=== PATIENT | male | born 1955 ===

== ENCOUNTER 2016-05-28 09:33 | Inpatient (IN) | payer MEDICAID, OTHER ==
[2016-05-28 09:36] VITALS: BMI 20.4
--- NOTE | 2016-05-28 11:14 | C.PDOC ---
History Of Present Illness Patient was seen in the office on 05/[address] Orourke. He was diagnosed with a "rectal prolapse" at that time and was advised to come to the ED today for admission. He c/o pain in the rectum and has swelling there for years but has no difficulty passing his stool. He has no abdominal pain, nausea, vomiting or diarrhea or constipation. He has no urinary symptoms. Time Seen by Provider: 05/28/16 09:46 Chief Complaint (Nursing): Medical Clearance History Per: Patient History/Exam Limitations: no limitations Current Symptoms Are (Timing): Still Present Past Medical History Vital Signs: Last Vital Signs Temp 97.6 F 05/28/16 09:41 Pulse 96 H 05/28/16 09:41 Resp 17 05/28/16 09:41 BP 162/99 H 05/28/16 09:41 Pulse Ox 97 05/28/16 09:41 - Medical History PMH: HTN Surgical History: No Surg Hx Family History: States: Unknown Family Hx - Social History Hx Tobacco Use: No Hx Alcohol Use: No Hx Substance Use: No - Immunization History Hx Tetanus Toxoid Vaccination: No Hx Influenza Vaccination: No Hx Pneumococcal Vaccination: No Review Of Systems Except As Marked, All Systems Reviewed And Found Negative. Gastrointestinal: Positive for: Rectal Pain (and swelling) Physical Exam - Physical Exam Appears: Well, No Acute Distress Skin: Normal Color, Warm, Dry, Other (Multiple fibromas generalized) Head: Atraumatic, Normacephalic Eye(s): bilateral: Normal Inspection, PERRL, EOMI Oral Mucosa: Moist Chest: Symmetrical Cardiovascular: Rhythm Regular Respiratory: Normal Breath Sounds Gastrointestinal/Abdominal: Normal Exam, Bowel Sounds, Soft, Tenderness Rectal: Hemorrhoids (right sided, thrombosed), Mass (nodular along left wall just proximal to the sphincter) Male Genital: Normal Inspection Extremity: Normal ROM Neurological/Psych: Oriented x3, Normal Speech, Normal Cognition ED Course And Treatment O2 Sat by Pulse Oximetry: 97 Disposition - Disposition Disposition: HOSPITALIZED Disposition Time: 11:11 Condition: STABLE - POA Present On Arrival: None - Clinical Impression Clinical Impression: Thrombosed external hemorrhoid, Mass in rectum
[2016-05-28] MEDS: Dextrose 5%/0.45% NS 1,000 ML IV SCH ×2 (12:32→23:00)
--- NOTE | 2016-05-28 13:52 | CP.PCM.CON ---
Addendum entered and electronically signed by Zachary Gonzalez DO 05/28/16 18:49: Pt has Detsky score of 0, which carries a 0.4% risk of adverse cardiac event. ABG WNL. Medically optimized for surgery. Original Note: <Zachary Gonzalez - Last Filed: 05/28/16 14:53> History of Present Illness - History of Present Illness History of Present Illness: Medicine consult note on Dr. Mcknight service: 60M PMHx HTN, asthma, scoliosis and chronic rectal pain was sent to ED by Dr. Larson for rectal prolapse. Pt was seen by Dr. Larson on 05/23 and was instructed to come to ED today for admission. Pt complains rectal pain when having BM and when it was touched, but he had it for a long time. 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 Pt otherwise have no other complaints, denied chest pain, SOB, palpitations, lightheadedness, abdominal pain, n/v, fever, chills, hearing or vision changes. Pt said he only takes one pill for HTN at home and uses pump occasionally for his asthma. PMHx: above PSHx: denied FMHx: reviewed and noncontributory Social: denied ETOH or drugs, former smoker with 20 pack year hx and quitted 8 years ago. Lives with daughter, no trouble ambulating NKDA Review of Systems - Constitutional Constitutional: absent: Anorexia, Weakness - EENT Eyes: absent: Diplopia - Cardiovascular Cardiovascular: absent: Chest Pain, Dyspnea - Respiratory Respiratory: absent: Cough, Dyspnea - Gastrointestinal Gastrointestinal: absent: Abdominal Pain, Constipation, Diarrhea, Nausea, Vomiting Additional comments: rectal pain when passing BM - Genitourinary Genitourinary: absent: Dysuria, Pyuria - Musculoskeletal Musculoskeletal: absent: Tingling - Integumentary Integumentary: Change in Pigmentation, Lesions - Neurological Neurological: absent: Focal Weakness, Loss of Vision Past Patient History - Past Social History Smoking Status: Never Smoked - CARDIAC Hx Hypertension: Yes - MUSCULOSKELETAL/RHEUMATOLOGICAL Hx Falls: No - PSYCHIATRIC Hx Substance Use: No - ANESTHESIA Hx Anesthesia: No Hx Anesthesia Reactions: No Meds Allergies/Adverse Reactions: Allergies Allergy/AdvReac Type Severity Reaction Status Date / Time No Known Allergies Allergy Verified 05/28/16 09:49 - Medications Medications: Current Medications Dextrose/Sodium Chloride (Dextrose 5%/0.45% Ns 1000 Ml) 1,000 mls @ 100 mls/hr IV .Q10H [facility] Last Admin: 05/28/16 12:32 Dose: 100 mls/hr Physical Exam - Constitutional Appears: Non-toxic, No Acute Distress, Chronically Ill - Head Exam Head Exam: NORMOCEPHALIC - Respiratory Exam Respiratory Exam: Clear to Auscultation Bilateral, NORMAL BREATHING PATTERN. absent: Rhonchi, Wheezes - Cardiovascular Exam Cardiovascular Exam: REGULAR RHYTHM, +S1, +S2. absent: Gallop, Rubs - GI/Abdominal Exam GI & Abdominal Exam: Normal Bowel Sounds, Soft. absent: Hernia, Tenderness - Rectal Exam Rectal Exam: Hemorrhoids Additional comments: 4cm red mass protruding from rectum tender to palpation, sphincter tone present , tender nodules palpated inside rectal on the left rectal wall near anus - Back Exam Back exam: rash noted. absent: CVA tenderness (R), tenderness Additional comments: severe levoscoliosis - Neurological Exam Neurological exam: Alert, Oriented x3 - Psychiatric Exam Psychiatric exam: Normal Mood - Skin Skin Exam: Rash (multiple cafe au leit macules, largest on left anterior chest 10cm long) Results - Vital Signs Recent Vital Signs: Last Vital Signs Temp 97.8 F 05/28/16 12:23 Pulse 86 05/28/16 12:23 Resp 20 05/28/16 12:23 BP 154/90 H 05/28/16 12:23 Pulse Ox 97 05/28/16 12:23 Assessment & Plan - Assessment and Plan (Free Text) Assessment: Rectal mass/prolapse Possible OR tomorrow per ED attending. Management as per primary surgical team. Flagyl and Neomycin PO as per Dr. Larson. F/U preop labs and imaging. HTN Continue home med Ramipril 5mg PO daily. Monitor and adjust if needed. Asthma Duoneb q2H PRN. Levoscoliosis Pulm Dr. Velazquez consulted. F/U ABG. <Eb Mcknight - Last Filed: 05/28/16 19:38> Meds - Medications Medications: Current Medications Albuterol/Ipratropium (Duoneb 3 Mg/0.5 Mg (3 Ml) Ud) 3 ml INH Q8H [facility] Dextrose/Sodium Chloride (Dextrose 5%/0.45% Ns 1000 Ml) 1,000 mls @ 100 mls/hr IV .Q10H [facility] Last Admin: 05/28/16 12:32 Dose: 100 mls/hr Metronidazole (Flagyl) 500 mg PO TID [facility] Stop: 05/29/16 00:00 Last Admin: 05/28/16 18:18 Dose: 500 mg Neomycin Sulfate (Neomycin Tab) 1,000 mg PO TID [facility] Stop: 05/29/16 00:00 Results - Vital Signs Recent Vital Signs: Last Vital Signs Temp 97.8 F 05/28/16 15:40 Pulse 85 05/28/16 15:40 Resp 20 05/28/16 15:40 BP 121/81 05/28/16 15:40 Pulse Ox 97 05/28/16 15:40 - Labs Result Diagrams: 05/28/16 17:26 05/28/16 17:26 Labs: Laboratory Results - last 24 hr 05/28/16 05/28/16 15:55 17:26 WBC 7.7 RBC 4.90 Hgb 14.9 Hct 43.2 MCV 88.2 D MCH 30.3 MCHC 34.4 RDW 13.1 Plt Count 275 MPV 6.4 L Neut % (Auto) 78.5 H Lymph % (Auto) 15.7 L Borden % (Auto) 5.2 Eos % (Auto) 0.1 Baso % (Auto) 0.5 Neut # 6.1 Lymph # 1.2 Borden # 0.4 Eos # 0.0 Baso # 0.0 PT 12.5 H INR 1.1 APTT 33 Puncture Site Rradial pCO2 39 pO2 77 L HCO3 24.9 ABG pH 7.41 ABG Total CO2 25.9 ABG O2 Saturation 96.7 ABG Base Excess 0.1 ABG Hemoglobin 14.4 ABG Carboxyhemoglobin 1.4 POC ABG HHb (Measured) 3.2 ABG Methemoglobin 1.2 Naveed Test Pos A-a O2 Difference 24.0 Respiratory Index 0.3 Hgb O2 Saturation 94.1 L FiO2 21.0 Sodium 139 Potassium 3.6 Chloride 97 L Carbon Dioxide 28 Anion Gap 18 BUN 13 Creatinine 0.5 L Est GFR ( Amer) > 60 Est GFR (Non-Af Amer) > 60 Random Glucose 98 Calcium 8.5 L Total Bilirubin 0.7 AST 19 ALT 28 Alkaline Phosphatase 59 Total Protein 7.3 Albumin 3.9 Globulin 3.4 Albumin/Globulin Ratio 1.1 Attending/Attestation - Attestation I have personally seen and examined this patient.: Yes I have fully participated in the care of the patient.: Yes I have reviewed all pertinent clinical information: Yes Notes (Text): Patient with history of asthma, previous smoker, htn, sent by surgeon to ED for "rectal prolapse"; Patient currently pain free; has bloody prolapsed rectum on exam; also with levoscloliosis and multiple neurofibromas on skin; lungs clear with good air movement; Patient to undergo surgical correction of prolapse tomorrow; getting golytely for bowel prep today; also getting flagyl and neomycin as part of bowel cleansing; Patient has low cardiac risk (0.4%) for non-cardiac procedure; also, despite asthma and severe scoliosis history, ABG is relatively re-assuring with close to normal PO2 and no hypercapnea. -place on standing duonebs q8h (uses inhaler 3 times a day) -decrease enalapril to 5 mg (to avoid relative hypotension) 05/28/16 19:29
[2016-05-28] MEDS ORDERED: Albuterol-Ipratrop 3 mg / 0.5 (3 ml) UD INH PRN (14:00)
[2016-05-28] MEDS ORDERED: Peg-Electrolyte Oral Soln 4L (Golytely) PO ONE (14:48)
--- NOTE | 2016-05-28 15:56 | RAD ---
Chest x-ray single frontal view History: Preoperative evaluation. Comparison: None available. Technique: Single frontal view of the chest. Findings: Severe levoscoliotic curvature of the thoracic spine. Elevated left hemidiaphragm. Suggestion of multiple left-sided rib deformities. Left basilar airspace opacity which may represent underlying atelectasis versus infiltrate versus effusion. Clinical correlation. Mild venous congestion. Biapical pleural thickening with upper lobe granulomatous changes. Cardiomegaly. Questionable soft tissue attenuation foci seen adjacent to the left proximal humerus, nonspecific. Clinical correlation. Impression: Severe levoscoliotic curvature of the thoracic spine. Elevated left hemidiaphragm. Suggestion of multiple left-sided rib deformities. Left basilar airspace opacity which may represent underlying atelectasis versus infiltrate versus effusion. Clinical correlation. Mild venous congestion. Biapical pleural thickening with upper lobe granulomatous changes. Cardiomegaly. Questionable soft tissue attenuation foci seen adjacent to the left proximal humerus, nonspecific. Clinical correlation.
[2016-05-28 16:00] LABS: ABG ALLEN TEST POS; ARTERIAL BLOOD HGB O2 SAT 94.1 % (95.0-98.0); CARBOXYHEMOGLOBIN 1.4 % (0.5-1.5); DRAW SITE RRADIAL; HHB 3.2 % (0.0-5.0); METHEMOGLOBIN 1.2 % (0.0-3.0)
[2016-05-28 17:31] LABS: BASO % 0.5 % (0.0-2.0); EOS % 0.1 % (0.0-4.0); HEMATOCRIT 43.2 % (35.0-51.0); LYMPH # 1.2 K/uL (1.0-4.3); LYMPH % 15.7 % (20.0-40.0); MEAN CELL VOLUME 88.2 fL (80.0-94.0); MEAN CORPUSCULAR HEMOGLOBIN 30.3 pg (27.0-31.0); MEAN CORPUSCULAR HGB CONC 34.4 g/dL (33.0-37.0); MEAN PLATELET VOLUME 6.4 fL (7.2-11.7); MONO # 0.4 K/uL (0.0-0.8); MONO % 5.2 % (0.0-10.0); NRBC % 0.2 % (0.0-2.0); RED CELL DISTRIBUTION WIDTH 13.1 % (11.5-14.5); WHITE BLOOD COUNT 7.7 K/uL (4.8-10.8)
[2016-05-28 17:39] LABS: CHLORIDE 97 mmol/L (98-107); SODIUM 139 mmol/L (132-148)
[2016-05-28 17:40] LABS: POTASSIUM 3.6 mmol/L (3.6-5.2)
[2016-05-28 17:42] LABS: ALB/GLOB RATIO 1.1 (1.0-2.1); ALKALINE PHOSPHATASE 59 U/L (38-126); AST/SGOT 19 U/L (17-59); BILIRUBIN,TOTAL 0.7 mg/dL (0.2-1.3); BLOOD UREA NITROGEN 13 mg/dL (9-20); CARBON DIOXIDE 28 mmol/L (22-30); GFR AFRICAN-AMERICAN > 60; GLUCOSE,RANDOM 98 mg/dL (75-110); TOTAL PROTEIN 7.3 g/dL (6.3-8.3)
[2016-05-28 17:43] LABS: ALT/SGPT 28 U/L (21-72); CALCIUM 8.5 mg/dl (8.6-10.4)
[2016-05-28 17:45] LABS: INR 1.1
[2016-05-28] MEDS: Albuterol-Ipratrop 3 mg / 0.5 (3 ml) UD INH SCH (20:10)
[2016-05-29] MEDS: Albuterol-Ipratrop 3 mg / 0.5 (3 ml) UD INH SCH ×3 (01:58→19:07)
[2016-05-29] MEDS: Dextrose 5%/0.45% NS 1,000 ML IV SCH ×2 (05:05→21:34)
[2016-05-29 08:13] LABS: BASO % 0.4 % (0.0-2.0); EOS % 0.4 % (0.0-4.0); HEMATOCRIT 43.5 % (35.0-51.0); LYMPH # 1.7 K/uL (1.0-4.3); LYMPH % 20.8 % (20.0-40.0); MEAN CELL VOLUME 87.6 fL (80.0-94.0); MEAN CORPUSCULAR HEMOGLOBIN 30.5 pg (27.0-31.0); MEAN CORPUSCULAR HGB CONC 34.8 g/dL (33.0-37.0); MEAN PLATELET VOLUME 6.4 fL (7.2-11.7); MONO # 0.7 K/uL (0.0-0.8); MONO % 8.4 % (0.0-10.0); RED CELL DISTRIBUTION WIDTH 13.4 % (11.5-14.5)
[2016-05-29 08:39] LABS: CHLORIDE 98 mmol/L (98-107); POTASSIUM 3.8 mmol/L (3.6-5.2); SODIUM 139 mmol/L (132-148)
[2016-05-29 08:41] LABS: GFR AFRICAN-AMERICAN > 60
[2016-05-29 08:42] LABS: ALB/GLOB RATIO 1.3 (1.0-2.1); ALKALINE PHOSPHATASE 66 U/L (38-126); ALT/SGPT 20 U/L (21-72); AST/SGOT 27 U/L (17-59); BLOOD UREA NITROGEN 10 mg/dL (9-20); CARBON DIOXIDE 27 mmol/L (22-30); GLUCOSE,RANDOM 107 mg/dL (75-110); TOTAL PROTEIN 7.1 g/dL (6.3-8.3)
[2016-05-29 08:43] LABS: CALCIUM 8.6 mg/dl (8.6-10.4)
--- NOTE | 2016-05-29 11:43 | CP.PCM.CON ---
History of Present Illness - History of Present Illness History of Present Illness: Patient is a 60 year old male with past medical history of HTN, Asthma, and levoscoliosis who was seen in Dr. Orourke's office on 05/23/16 and was diagnosed with "rectal prolapse" at that time. Pt was advised to come to the ED on for admission. Pt initially complained of pain and swelling in his rectum for "years" but denied difficulty passing stool. Pt also denied abdominal pain, nausea, vomiting, diarrhea or constipation, and urinary symptoms. Pt to have surgery, and pulmonary team was consulted for clearance. Pt seen and examined. Pt currently denies pulmonary concerns including shortness of breath at rest, SOB with exertion, fever, and coughs. Pt does admit that he uses his inhaler 2-3 times a day at home for his asthma symptoms. Social History: Pt is currently on disability due to his Levoscoliosis. Pt is a former smoker who quit smoking 9 years ago. Surgery History: Denies Review of Systems - Constitutional Constitutional: absent: Chills, Fever - Cardiovascular Cardiovascular: absent: Chest Pain, Chest Pain with Activity, Dyspnea - Respiratory Respiratory: absent: Cough, Dyspnea, Hemoptysis, Dyspnea on Exertion, Wheezing, Stridor, Pain on Inspiration, Chest Congestion Past Patient History - Past Medical History & Family History Past Medical History?: Yes - Past Social History Smoking Status: Former Smoker (Quit 9 years ago) - CARDIAC Hx Hypertension: Yes - PULMONARY Hx Asthma: Yes - MUSCULOSKELETAL/RHEUMATOLOGICAL Hx Falls: No Other/Comment: Levoscoliosis - PSYCHIATRIC Hx Substance Use: No - ANESTHESIA Hx Anesthesia: No Hx Anesthesia Reactions: No Meds Allergies/Adverse Reactions: Allergies Allergy/AdvReac Type Severity Reaction Status Date / Time No Known Allergies Allergy Verified 07/08/16 19:47 - Medications Medications: Current Medications Albuterol/Ipratropium (Duoneb 3 Mg/0.5 Mg (3 Ml) Ud) 3 ml INH RQ8 [facility] Last Admin: 05/29/16 07:44 Dose: 3 ml Enalapril Maleate (Vasotec) 5 mg PO DAILY [facility] Last Admin: 05/29/16 10:24 Dose: 5 mg Dextrose/Sodium Chloride (Dextrose 5%/0.45% Ns 1000 Ml) 1,000 mls @ 100 mls/hr IV .Q10H [facility] Last Admin: 05/29/16 05:05 Dose: 100 mls/hr Physical Exam - Constitutional Appears: Non-toxic, No Acute Distress - Head Exam Head Exam: ATRAUMATIC, NORMOCEPHALIC - Eye Exam Eye Exam: Normal appearance Pupil Exam: NORMAL ACCOMODATION - ENT Exam ENT Exam: Mucous Membranes Moist - Respiratory Exam Respiratory Exam: Clear to Auscultation Bilateral, NORMAL BREATHING PATTERN. absent: Rales, Rhonchi, Wheezes, Respiratory Distress - Cardiovascular Exam Cardiovascular Exam: REGULAR RHYTHM, +S1, +S4 - Back Exam Additional comments: Severe levoscoliosis - Neurological Exam Neurological exam: Alert, Oriented x3 - Psychiatric Exam Psychiatric exam: Normal Affect, Normal Mood - Skin Skin Exam: Dry, Intact, Normal Color, Warm Results - Vital Signs Recent Vital Signs: Last Vital Signs Temp 97.8 F 05/29/16 08:06 Pulse 92 H 05/29/16 08:06 Resp 20 05/29/16 08:06 BP 124/83 05/29/16 10:24 Pulse Ox 97 05/29/16 08:06 - Labs Result Diagrams: 06/12/16 07:01 06/12/16 07:01 Labs: Laboratory Results - last 24 hr 05/28/16 05/28/16 05/29/16 15:55 17:26 07:55 WBC 7.7 8.0 RBC 4.90 4.97 Hgb 14.9 15.1 Hct 43.2 43.5 MCV 88.2 D 87.6 MCH 30.3 30.5 MCHC 34.4 34.8 RDW 13.1 13.4 Plt Count 275 293 MPV 6.4 L 6.4 L Neut % (Auto) 78.5 H 70.0 Lymph % (Auto) 15.7 L 20.8 Williams % (Auto) 5.2 8.4 Eos % (Auto) 0.1 0.4 Baso % (Auto) 0.5 0.4 Neut # 6.1 5.6 Lymph # 1.2 1.7 Williams # 0.4 0.7 Eos # 0.0 0.0 Baso # 0.0 0.0 PT 12.5 H INR 1.1 APTT 33 Puncture Site Rradial pCO2 39 pO2 77 L HCO3 24.9 ABG pH 7.41 ABG Total CO2 25.9 ABG O2 Saturation 96.7 ABG Base Excess 0.1 ABG Hemoglobin 14.4 ABG Carboxyhemoglobin 1.4 POC ABG HHb (Measured) 3.2 ABG Methemoglobin 1.2 Naveed Test Pos A-a O2 Difference 24.0 Respiratory Index 0.3 Hgb O2 Saturation 94.1 L FiO2 21.0 Sodium 139 139 Potassium 3.6 3.8 Chloride 97 L 98 Carbon Dioxide 28 27 Anion Gap 18 18 BUN 13 10 Creatinine 0.5 L 0.6 L Est GFR ( Amer) > 60 > 60 Est GFR (Non-Af Amer) > 60 > 60 Random Glucose 98 107 Calcium 8.5 L 8.6 Total Bilirubin 0.7 1.0 AST 19 27 ALT 28 20 L D Alkaline Phosphatase 59 66 Total Protein 7.3 7.1 Albumin 3.9 4.0 Globulin 3.4 3.1 Albumin/Globulin Ratio 1.1 1.3 Assessment & Plan (1) Asthma Assessment and Plan: Chest X-ray on 05/28/16 showed severe levoscoliotic curve of the thoracic spine, elevated left hemidiaphragm, suggestion of multiple left-sided rib deformities, left basilar airspace opacity atelectasis versus infiltrate versus effusion. Mild venous congestion, biapical pleural thickening with upper lobe granulomatous changes, cardiomegaly, and questionable soft tissue attenuation foci adjacent to left proximal humerus. (see report for full details) Patient is a moderate risk for surgery due to severe levoscoliotic curve. . Continue Duoneb treatment Monitor for SOB and CP. Status: Acute (2) Levoscoliosis Status: Acute
--- NOTE | 2016-05-29 16:02 | CP.PCM.PN ---
Addendum entered and electronically signed by Briseyda Murphy MDS 05/29/16 16:40: Medicine team will sign off. Thank you for consult. Original Note: Subjective - Date & Time of Evaluation Date of Evaluation: 05/29/16 Time of Evaluation: 07:35 - Subjective Subjective: PGY1 note for Dr. Jones's service: Patient seen and examined at bedside today. He stated that he still sees some BRBPR but he is not dizzy and does not feel weak. He denies chest pain, palpitations, or shortness of breath. He denies any pain or other complaints. Was seen by pulm. Patient is a moderate risk for surgery due to severe levoscoliotic curve. Patient is optimized for surgery. Surgical plans per Dr. Larson. Objective - Vital Signs/Intake and Output Vital Signs (last 24 hours): Temp Pulse Resp BP Pulse Ox 97.8 F 92 H 20 140/59 L 95 05/29/16 08:06 05/29/16 15:32 05/29/16 08:06 05/29/16 15:32 05/29/16 15:32 Intake and Output: 05/29/16 05/29/16 06:59 18:59 Intake Total 4400 350 Output Total 5 Balance 4395 350 - Medications Medications: Current Medications Albuterol/Ipratropium (Duoneb 3 Mg/0.5 Mg (3 Ml) Ud) 3 ml INH RQ8 [facility] Last Admin: 05/29/16 07:44 Dose: 3 ml Enalapril Maleate (Vasotec) 5 mg PO DAILY [facility] Last Admin: 05/29/16 10:24 Dose: 5 mg Dextrose/Sodium Chloride (Dextrose 5%/0.45% Ns 1000 Ml) 1,000 mls @ 100 mls/hr IV .Q10H [facility] Last Admin: 05/29/16 05:05 Dose: 100 mls/hr - Labs Labs: 05/29/16 07:55 05/29/16 07:55 PT 12.5 SECONDS (9.7-12.2) H 05/28/16 17:26 INR 1.1 05/28/16 17:26 APTT 33 SECONDS (21-34) 05/28/16 17:26 - Constitutional Appears: Non-toxic, No Acute Distress - Head Exam Head Exam: ATRAUMATIC, NORMAL INSPECTION - Eye Exam Eye Exam: EOMI - ENT Exam ENT Exam: Mucous Membranes Moist - Respiratory Exam Respiratory Exam: Clear to Ausculation Bilateral, NORMAL BREATHING PATTERN. absent: Accessory Muscle Use, Respiratory Distress - Cardiovascular Exam Cardiovascular Exam: REGULAR RHYTHM, +S1, +S2 - GI/Abdominal Exam GI & Abdominal Exam: Soft, Normal Bowel Sounds. absent: Distended, Firm, Guarding, Tenderness Additional comments: rectal pain when passing BM - Extremities Exam Extremities Exam: Normal Inspection. absent: Calf Tenderness, Pedal Edema - Back Exam Back Exam: NORMAL INSPECTION. absent: CVA tenderness (L), CVA tenderness (R), paraspinal tenderness Additional comments: major scoliatic curve - Neurological Exam Neurological Exam: Alert, Awake, CN II-XII Intact, Oriented x3 - Psychiatric Exam Psychiatric exam: Normal Affect, Normal Mood - Skin Skin Exam: Dry, Normal Color Additional comments: multiple skin lesions and patches Assessment and Plan - Assessment and Plan (Free Text) Assessment: Rectal mass/prolapse Surgical plans per Dr Larson Management as per primary surgical team. Flagyl and Neomycin PO as per Dr. Larson. Patient has low cardiac risk (0.4%) for non-cardiac procedure; also, despite asthma and severe scoliosis history, ABG is relatively re-assuring with close to normal PO2 and no hypercapnea. HTN [id number] PO daily Monitor and adjust if needed. Asthma Duoneb RQ8 PRN Levoscoliosis Pulm Dr. Velazquez consulted - help appreciated ABG is relatively re-assuring with close to normal PO2 and no hypercapnea. Patient is a moderate risk for surgery due to severe levoscoliotic curve.
[2016-05-29] MEDS ORDERED: Midazolam 2 MG/2 ML VIAL ONE (16:05)
[2016-05-29] MEDS ORDERED: Lidocaine Hydrochloride 5 ML INJ ONE (16:05)
[2016-05-29] MEDS ORDERED: Propofol 10 mg/ml Inj (20 ML) ONE (16:05)
[2016-05-29] MEDS ORDERED: Lactated Ringer's 1,000 ML IV ONE (16:10)
[2016-05-29] MEDS ORDERED: Bupivacaine HCl 0.25% PF (10 ml) Inj ONE (16:15)
[2016-05-29] MEDS ORDERED: Lidocaine 2% w Epi 1:100,000 Inj IJ ONE (16:15)
[2016-05-29] MEDS ORDERED: Absorbable Gelatin Sponge Size 12-7 ONE (16:35)
[2016-05-29] MEDS ORDERED: HYDROmorphone 0.5 mg/0.5 ml ISec IVP PRN (17:32)
--- NOTE | 2016-05-29 18:41 | OP ---
PROCEDURE DATE: 05/29/2016 INDICATIONS FOR SURGERY: This is a 60-year-old male with history of neurofibromatosis who presented to my office with rectal pain. Found to have an incarcerated rectal prolapse. He was sent to the [facility] ergency Room and admitted yesterday. At the time of admission, he was also found to have a rectal ma ss and is taken to the operating room today for definitive treatment. GROSS FINDINGS: There was a rectal prolapse involving 70% circumferentially of the rectum. The othe r 30% was fixed with a deep mass that appeared to be anal in origin. There were 2 polyps on the prol apsed rectum which were also removed. A partial proctectomy with proctoanal anastomosis was performe d. PROCEDURE: The patient taken to the operating room. General anesthesia administered. He was placed in the prone position ____. The buttocks were taped open. Anoscopy was performed with the above fi ndings. The rectal prolapse was grasped with several Allis clamps and transected near the dentate li ne. Using Allis clamps, the mucosa was clamped to the anal cuff and a ____ a proctoanal anastomosis was accomplished with the interrupted 0 Monocryl sutures. A V-shaped incision was made into the albino canal and a biopsy of the rectum was taken. A bleeding blood vessel was repaired. A flap closure was performed to prevent anal stenosis. The patient tolerated procedure well, returned to recovery r oom in stable condition. Jeremi Larson MD cc: [id number] TT: 05/29/2016 18:40:46 ia
[2016-05-29] MEDS: Oxycodone/Acetaminophen 5/325 mg Tab PO PRN (21:39)
[2016-05-30] MEDS: Lactated Ringer's 1,000 ML IV SCH ×4 (00:25→20:45)
[2016-05-30] MEDS: Albuterol-Ipratrop 3 mg / 0.5 (3 ml) UD INH SCH ×4 (01:00→23:27)
[2016-05-30] MEDS: Oxycodone/Acetaminophen 5/325 mg Tab PO PRN (02:22)
[2016-05-30] MEDS: Dextrose 5%/0.45% NS 1,000 ML IV SCH ×2 (06:47→17:47)
[2016-05-30 07:15] LABS: CHLORIDE 95 mmol/L (98-107)
[2016-05-30 07:16] LABS: BASO # 0.1 K/uL (0.0-0.2); BASO % 0.6 % (0.0-2.0); EOS % 0.2 % (0.0-4.0); HEMATOCRIT 39.2 % (35.0-51.0); LYMPH # 2.3 K/uL (1.0-4.3); LYMPH % 24.8 % (20.0-40.0); MEAN CELL VOLUME 88.2 fL (80.0-94.0); MEAN PLATELET VOLUME 6.5 fL (7.2-11.7); MONO # 1.1 K/uL (0.0-0.8); MONO % 11.7 % (0.0-10.0); NRBC % 0.1 % (0.0-2.0); POTASSIUM 3.6 mmol/L (3.6-5.2); RED CELL DISTRIBUTION WIDTH 13.4 % (11.5-14.5); SODIUM 133 mmol/L (132-148); WHITE BLOOD COUNT 9.2 K/uL (4.8-10.8)
[2016-05-30 07:18] LABS: BILIRUBIN,TOTAL 1.3 mg/dL (0.2-1.3); CARBON DIOXIDE 28 mmol/L (22-30); GFR AFRICAN-AMERICAN > 60
[2016-05-30 07:19] LABS: ALB/GLOB RATIO 1.3 (1.0-2.1); ALKALINE PHOSPHATASE 52 U/L (38-126); ALT/SGPT 22 U/L (21-72); AST/SGOT 27 U/L (17-59); BLOOD UREA NITROGEN 8 mg/dL (9-20); CALCIUM 7.8 mg/dl (8.6-10.4); GLUCOSE,RANDOM 91 mg/dL (75-110); PHOSPHOROUS 3.5 mg/dL (2.5-4.5); TOTAL PROTEIN 6.2 g/dL (6.3-8.3)
[2016-05-30 07:20] LABS: MAGNESIUM 1.6 mg/dL (1.6-2.3)
[2016-05-30 07:21] LABS: INR 1.3
--- NOTE | 2016-05-30 13:16 | CARD ---
APPROVED REPORT EKG Measurement Heart [id number] <Conclusion> Normal sinus rhythm Normal ECG
[2016-05-31] MEDS: Dextrose 5%/0.45% NS 1,000 ML IV SCH ×2 (01:00→10:54)
[2016-05-31] MEDS: Lactated Ringer's 1,000 ML IV SCH ×3 (03:00→16:25)
[2016-05-31] MEDS: Albuterol-Ipratrop 3 mg / 0.5 (3 ml) UD INH SCH ×2 (07:31→16:54)
--- NOTE | 2016-05-31 12:56 | CP.PCM.PN ---
Subjective - Date & Time of Evaluation Date of Evaluation: 05/31/16 Time of Evaluation: 09:30 - Subjective Subjective: Pt seen and examined at bedside, asleep, resting comfortably. Pt was easily arousable. Pt had a partial protectomy procedure on 05/29/16. Pt denies any pulmonary concerns today including SOB, wheezing, cough, and chest pain. Pt is getting nebulizer treatments, and finds that helpful. Objective - Vital Signs/Intake and Output Vital Signs (last 24 hours): Temp Pulse Resp BP Pulse Ox 98.2 F 112 H 20 146/93 H 96 05/31/16 07:00 05/31/16 07:00 05/31/16 07:00 05/31/16 10:55 05/31/16 07:00 Intake and Output: 05/31/16 05/31/16 06:59 18:59 Intake Total 1530 Output Total 1200 Balance 330 - Medications Medications: Current Medications Albuterol/Ipratropium (Duoneb 3 Mg/0.5 Mg (3 Ml) Ud) 3 ml INH RQ8 [facility] Last Admin: 05/31/16 07:31 Dose: 3 ml Docusate Sodium (Colace) 100 mg PO BID [facility] Last Admin: 05/31/16 10:54 Dose: 100 mg Enalapril Maleate (Vasotec) 5 mg PO DAILY [facility] Last Admin: 05/31/16 10:55 Dose: 5 mg Dextrose/Sodium Chloride (Dextrose 5%/0.45% Ns 1000 Ml) 1,000 mls @ 100 mls/hr IV .Q10H [facility] Last Admin: 05/31/16 10:54 Dose: Not Given Lactated Ringer's (Lactated Ringer's) 1,000 mls @ 150 mls/hr IV .Q6H40M [facility] Last Admin: 05/31/16 10:54 Dose: Not Given Lactulose (Enulose) 20 gm PO BID [facility] Last Admin: 05/31/16 10:54 Dose: 20 gm Oxycodone/Acetaminophen (Percocet 5/325 Mg Tab) 2 tab PO Q4H PRN PRN Reason: pain Stop: 06/01/16 17:17 Last Admin: 05/30/16 02:22 Dose: 2 tab - Labs Labs: 05/30/16 06:59 05/30/16 06:59 PT 14.6 SECONDS (9.7-12.2) H 05/30/16 06:59 INR 1.3 05/30/16 06:59 APTT 31 SECONDS (21-34) 05/30/16 06:59 - Constitutional Appears: Non-toxic, No Acute Distress - Head Exam Head Exam: NORMAL INSPECTION - Eye Exam Eye Exam: Normal appearance Pupil Exam: NORMAL ACCOMODATION - ENT Exam ENT Exam: Mucous Membranes Moist - Respiratory Exam Respiratory Exam: Clear to Ausculation Bilateral, NORMAL BREATHING PATTERN - Cardiovascular Exam Cardiovascular Exam: REGULAR RHYTHM - Psychiatric Exam Psychiatric exam: Normal Affect, Normal Mood - Skin Skin Exam: Dry, Intact, Normal Color, Warm Assessment and Plan (1) Asthma Assessment & Plan: Pt is stable as per pulmonary stand point Continue nebulizer treatments for diagnosis of asthma Continue to monitor for SOB and chest pain Status: Acute (2) Levoscoliosis Status: Acute
[2016-06-01] MEDS: Albuterol-Ipratrop 3 mg / 0.5 (3 ml) UD INH SCH ×3 (00:54→16:40)
[2016-06-01] MEDS: Lactated Ringer's 1,000 ML IV SCH ×2 (05:45→12:31)
[2016-06-01] MEDS: Dextrose 5%/0.45% NS 1,000 ML IV SCH (06:00)
[2016-06-01 11:52] LABS: CHLORIDE 92 mmol/L (98-107)
[2016-06-01 11:53] LABS: POTASSIUM 3.2 mmol/L (3.6-5.2); SODIUM 138 mmol/L (132-148)
[2016-06-01 11:55] LABS: CARBON DIOXIDE 29 mmol/L (22-30); GFR AFRICAN-AMERICAN > 60
[2016-06-01 11:56] LABS: ALB/GLOB RATIO 1.2 (1.0-2.1); ALKALINE PHOSPHATASE 55 U/L (38-126); ALT/SGPT 25 U/L (21-72); AST/SGOT 29 U/L (17-59); BILIRUBIN,TOTAL 0.9 mg/dL (0.2-1.3); BLOOD UREA NITROGEN 8 mg/dL (9-20); CALCIUM 8.9 mg/dl (8.6-10.4); GLUCOSE,RANDOM 96 mg/dL (75-110); PHOSPHOROUS 3.3 mg/dL (2.5-4.5); TOTAL PROTEIN 7.5 g/dL (6.3-8.3)
[2016-06-01 11:57] LABS: MAGNESIUM 1.8 mg/dL (1.6-2.3)
[2016-06-01 12:11] LABS: BASO % 0.4 % (0.0-2.0); EOS % 0.2 % (0.0-4.0); HEMATOCRIT 44.9 % (35.0-51.0); LYMPH # 1.7 K/uL (1.0-4.3); LYMPH % 15.9 % (20.0-40.0); MEAN CELL VOLUME 88.9 fL (80.0-94.0); MEAN CORPUSCULAR HEMOGLOBIN 30.1 pg (27.0-31.0); MEAN CORPUSCULAR HGB CONC 33.8 g/dL (33.0-37.0); MEAN PLATELET VOLUME 6.7 fL (7.2-11.7); MONO # 1.1 K/uL (0.0-0.8); MONO % 10.2 % (0.0-10.0); NRBC % 0.2 % (0.0-2.0); RED CELL DISTRIBUTION WIDTH 13.1 % (11.5-14.5); WHITE BLOOD COUNT 10.4 K/uL (4.8-10.8)
[2016-06-01] MEDS ORDERED: Potassium Chloride 20 mEq ER Tab PO STA (12:31)
--- NOTE | 2016-06-01 12:50 | CP.PCM.CON ---
<Briseyda Murphy - Last Filed: 06/01/16 15:00> History of Present Illness - History of Present Illness History of Present Illness: Medicine team reconsulted for urinary retention. Urology on board, Dr. Alfredo Panda. Patient seen and examined at bedside. No overnight events as per nursing. Patient is s/p partial protectomy with anastomosis and rectal polypectomy with biopsy of anal tumor POD 3. Patient is tolerating full diet. Patient reports having a bowel movement last night, but complains of post-op urinary retention and abdominal pain with distension. Patient also complains of rectal pain, which has been ongoing. Denies fever, chills, N/V, D/C, SOB, CP. Denies any other symptoms. Review of Systems - Constitutional Constitutional: absent: Chills, Fever, Headache, Night Sweats, Weakness - EENT Eyes: absent: Blurred Vision, Change in Vision - Cardiovascular Cardiovascular: absent: Chest Pain, Chest Pain at Rest, Diaphoresis, Edema, Irregular Heart Rhythm, Palpitations - Respiratory Respiratory: absent: Cough, Dyspnea, Dyspnea on Exertion - Gastrointestinal Gastrointestinal: Abdominal Pain. absent: Constipation, Diarrhea, Nausea, Vomiting - Genitourinary Genitourinary: Difficulty Urinating. absent: Dysuria, Hematuria, Urinary Incontinence, Urinary Frequency, Urinary Hesitance, Urinary Urgency Additional comments: piña in place - Musculoskeletal Musculoskeletal: absent: Muscle Weakness, Numbness, Tingling - Neurological Neurological: absent: Dizziness, Numbness Past Patient History - Past Medical History & Family History Past Medical History?: Yes - Past Social History Smoking Status: Former Smoker (Quit 9 years ago) - CARDIAC Hx Hypertension: Yes - PULMONARY Hx Asthma: Yes - MUSCULOSKELETAL/RHEUMATOLOGICAL Hx Falls: No Other/Comment: Levoscoliosis - PSYCHIATRIC Hx Substance Use: No - ANESTHESIA Hx Anesthesia: No Hx Anesthesia Reactions: No Meds Allergies/Adverse Reactions: Allergies Allergy/AdvReac Type Severity Reaction Status Date / Time No Known Allergies Allergy Verified 05/28/16 09:49 - Medications Medications: Current Medications Albuterol/Ipratropium (Duoneb 3 Mg/0.5 Mg (3 Ml) Ud) 3 ml INH RQ8 [facility] Last Admin: 06/01/16 08:07 Dose: 3 ml Docusate Sodium (Colace) 100 mg PO BID [facility] Last Admin: 06/01/16 10:53 Dose: 100 mg Enalapril Maleate (Vasotec) 5 mg PO DAILY [facility] Last Admin: 06/01/16 10:53 Dose: 5 mg Lactated Ringer's (Lactated Ringer's) 1,000 mls @ 150 mls/hr IV .Q6H40M [facility] Last Admin: 06/01/16 12:31 Dose: Not Given Lactulose (Enulose) 20 gm PO BID [facility] Last Admin: 06/01/16 10:54 Dose: 20 gm Oxycodone/Acetaminophen (Percocet 5/325 Mg Tab) 2 tab PO Q4H PRN PRN Reason: pain Stop: 06/01/16 17:17 Last Admin: 05/30/16 02:22 Dose: 2 tab Physical Exam - Constitutional Appears: Non-toxic, No Acute Distress, Unkempt - Head Exam Head Exam: NORMAL INSPECTION, NORMOCEPHALIC - Eye Exam Eye Exam: EOMI, PERRL Pupil Exam: NORMAL ACCOMODATION - ENT Exam ENT Exam: Mucous Membranes Moist - Respiratory Exam Respiratory Exam: Clear to Auscultation Bilateral, NORMAL BREATHING PATTERN - Cardiovascular Exam Cardiovascular Exam: REGULAR RHYTHM, RRR, +S1, +S2. absent: Gallop, JVD, Rubs - GI/Abdominal Exam GI & Abdominal Exam: Distended, Normal Bowel Sounds, Soft, Tenderness. absent: Firm, Guarding - Extremities Exam Extremities exam: Negative for: calf tenderness, pedal edema - Back Exam Back exam: absent: CVA tenderness (L), CVA tenderness (R), paraspinal tenderness Additional comments: levoscoliosis - Neurological Exam Neurological exam: Alert, CN II-XII Intact, Oriented x3 - Psychiatric Exam Psychiatric exam: Normal Affect, Normal Mood - Skin Skin Exam: Dry, Intact, Warm Additional comments: Neurofibromatous changes diffusely and [id number] spots Results - Vital Signs Recent Vital Signs: Last Vital Signs Temp 98.7 F 06/01/16 08:00 Pulse 102 H 06/01/16 08:00 Resp 20 06/01/16 08:00 BP 151/89 H 06/01/16 10:53 Pulse Ox 98 06/01/16 08:00 - Labs Result Diagrams: 06/01/16 11:20 06/01/16 11:20 Labs: Laboratory Results - last 24 hr 06/01/16 11:20 WBC 10.4 RBC 5.06 Hgb 15.2 Hct 44.9 MCV 88.9 MCH 30.1 MCHC 33.8 RDW 13.1 Plt Count 332 MPV 6.7 L Neut % (Auto) 73.3 Lymph % (Auto) 15.9 L [place] % (Auto) 10.2 H Eos % (Auto) 0.2 Baso % (Auto) 0.4 Neut # 7.6 H Lymph # 1.7 [place] # 1.1 H Eos # 0.0 Baso # 0.0 Sodium 138 Potassium 3.2 L Chloride 92 L Carbon Dioxide 29 Anion Gap 20 BUN 8 L Creatinine 0.6 L Est GFR ( Amer) > 60 Est GFR (Non-Af Amer) > 60 Random Glucose 96 Calcium 8.9 Phosphorus 3.3 Magnesium 1.8 Total Bilirubin 0.9 AST 29 ALT 25 Alkaline Phosphatase 55 Total Protein 7.5 Albumin 4.1 Globulin 3.4 Albumin/Globulin Ratio 1.2 Assessment & Plan - Assessment and Plan (Free Text) Plan: Urinary retention Piña in place Pt with hx of BPH states he used to be on meds to help but hasn't taken in two years Dr. Alfredo Panda consulted, help appreciated - f/u recs Rectal mass/prolapse Surgical plans per Dr Larson - Pt had a partial protectomy procedure on . Management/pain management as per primary surgical team. Patient has low cardiac risk (0.4%) for non-cardiac procedure; also, despite asthma and severe scoliosis history, ABG is relatively re-assuring with close to normal PO2 and no hypercapnea. HTN [id number] PO daily Monitor and adjust if needed. Asthma Duoneb RQ8 [facility] Consider inhaled steroid as patient was using his albuterol pump frequently at home Hypokalemia K = 3.2 Kdur 40 mew x 1 dose f/u am labs and Mg level Levoscoliosis Pulm Dr. Velazquez consulted - help appreciated ABG is relatively re-assuring with close to normal PO2 and no hypercapnea. Patient is a moderate risk for surgery due to severe levoscoliotic curve. <Eb Mcknight - Last Filed: 06/27/16 22:08> Results - Vital Signs Recent Vital Signs: Last Vital Signs Temp 97.6 F 06/16/16 15:21 Pulse 92 H 03/31/17 22:45 Resp 20 06/16/16 15:21 BP 164/91 H 06/16/16 15:21 Pulse Ox 98 06/16/16 15:21 - Labs Result Diagrams: 06/12/16 07:01 06/12/16 07:01 Attending/Attestation - Attestation I have personally seen and examined this patient.: Yes I have fully participated in the care of the patient.: Yes I have reviewed all pertinent clinical information: Yes
--- NOTE | 2016-06-01 16:09 | PCM.URO ---
Urology Progress Note - Objective Lab Results Last 24 Hours: Laboratory Results - last 24 hr 06/01/16 11:20 WBC 10.4 RBC 5.06 Hgb 15.2 Hct 44.9 MCV 88.9 MCH 30.1 MCHC 33.8 RDW 13.1 Plt Count 332 MPV 6.7 L Neut % (Auto) 73.3 Lymph % (Auto) 15.9 L [place] % (Auto) 10.2 H Eos % (Auto) 0.2 Baso % (Auto) 0.4 Neut # 7.6 H Lymph # 1.7 [place] # 1.1 H Eos # 0.0 Baso # 0.0 Sodium 138 Potassium 3.2 L Chloride 92 L Carbon Dioxide 29 Anion Gap 20 BUN 8 L Creatinine 0.6 L Est GFR ( Amer) > 60 Est GFR (Non-Af Amer) > 60 Random Glucose 96 Calcium 8.9 Phosphorus 3.3 Magnesium 1.8 Total Bilirubin 0.9 AST 29 ALT 25 Alkaline Phosphatase 55 Total Protein 7.5 Albumin 4.1 Globulin 3.4 Albumin/Globulin Ratio 1.2 Intake & Output: Intake & Output 05/31/16 06/01/16 06/01/16 18:59 06:59 18:59 Intake Total 450 2150 Output Total 600 1500 Balance -150 650 Intake: Intake, IV Amount 1600 Right Forearm 1600 Oral 450 550 Output: Urine 600 1500 Urine, Voided 300 Urethral (Gonzalez) 300 1500 Other: # Bowel Movements 2 3 Vital Signs: Vital Signs - 24 hr 05/31/16 05/31/16 06/01/16 16:37 23:30 08:00 Temperature 98.0 F 98.7 F Pulse Rate 102 H 102 H 102 H Respiratory 20 20 Rate Blood Pressure 131/87 151/89 H O2 Sat by Pulse 97 98 Oximetry 06/01/16 10:53 Temperature Pulse Rate Respiratory Rate Blood Pressure 151/89 H O2 Sat by Pulse Oximetry
[2016-06-01] MEDS ORDERED: Iohexol 240 (50 ml) PO ONE (16:30)
[2016-06-01] MEDS ORDERED: Iohexol 300 100 ML IJ ONE (18:28)
[2016-06-02] MEDS: Albuterol-Ipratrop 3 mg / 0.5 (3 ml) UD INH SCH ×3 (00:59→20:22)
[2016-06-02 07:46] LABS: BASO % 0.5 % (0.0-2.0); EOS % 0.3 % (0.0-4.0); HEMATOCRIT 43.9 % (35.0-51.0); LYMPH # 1.8 K/uL (1.0-4.3); LYMPH % 18.2 % (20.0-40.0); MEAN CELL VOLUME 87.9 fL (80.0-94.0); MEAN CORPUSCULAR HEMOGLOBIN 28.7 pg (27.0-31.0); MEAN CORPUSCULAR HGB CONC 32.6 g/dL (33.0-37.0); MEAN PLATELET VOLUME 6.4 fL (7.2-11.7); MONO # 1.1 K/uL (0.0-0.8); NRBC % 0.1 % (0.0-2.0); RED CELL DISTRIBUTION WIDTH 13.2 % (11.5-14.5); WHITE BLOOD COUNT 10.1 K/uL (4.8-10.8)
[2016-06-02 07:54] LABS: CHLORIDE 93 mmol/L (98-107); POTASSIUM 3.8 mmol/L (3.6-5.2); SODIUM 134 mmol/L (132-148)
[2016-06-02 07:56] LABS: ALB/GLOB RATIO 1.2 (1.0-2.1); ALKALINE PHOSPHATASE 64 U/L (38-126); AST/SGOT 24 U/L (17-59); BILIRUBIN,TOTAL 1.1 mg/dL (0.2-1.3); CARBON DIOXIDE 25 mmol/L (22-30); GFR AFRICAN-AMERICAN > 60; TOTAL PROTEIN 7.3 g/dL (6.3-8.3)
[2016-06-02 07:57] LABS: ALT/SGPT 26 U/L (21-72); BLOOD UREA NITROGEN 9 mg/dL (9-20); CALCIUM 8.8 mg/dl (8.6-10.4); GLUCOSE,RANDOM 94 mg/dL (75-110); MAGNESIUM 1.8 mg/dL (1.6-2.3); PHOSPHOROUS 3.6 mg/dL (2.5-4.5)
[2016-06-02 08:28] LABS: PROSTATE SPECIFIC ANTIGEN 1.72 ng/mL (0.00-4.0)
--- NOTE | 2016-06-02 10:47 | CT ---
PROCEDURE: CT Abdomen and Pelvis with contrast HISTORY: rectal cancer COMPARISON: Comparison is made to the previous study dated 09/25/2012 TECHNIQUE: Contrast dose: 100 mL Omnipaque 300 Radiation dose: Total exam DLP = 222.9 mGy-cm. FINDINGS: LOWER THORAX: No evidence of acute pathology or suspicious mass in the lung bases. LIVER: There is low-attenuation 7.5 millimeter lesion at the anterior aspect of the left liver lobe. This lesion is not seen in the previous study. Otherwise the liver demonstrate homogeneous enhancement GALLBLADDER AND BILE DUCTS: Unremarkable. PANCREAS: Unremarkable. No gross lesion or ductal dilatation. SPLEEN: Unremarkable. ADRENALS: Unremarkable. No mass. KIDNEYS AND URETERS: Unremarkable. No hydronephrosis. No solid mass. VASCULATURE: Unremarkable. No aortic aneurysm. BOWEL: Unremarkable. No obstruction. NoThe distal portion of the large bowel is not opacified with the oral contrast. The assessment of the rectum and sigmoid colon is suboptimal in this study. There is suspicious for distal rectal/ anal rectal junction focal thickening best seen on image 152 series 3. No evidence of bowel obstruction. Sigmoid and descending colon diverticulosis without evidence of diverticulitis. APPENDIX: No evidence of appendicitis. PERITONEUM: Unremarkable. No free fluid. No free air. LYMPH NODES: Unremarkable. No enlarged lymph nodes. BLADDER: Gonzalez catheter seen extending to the bladder. Small to moderate amount of free air in the anterior aspect of the bladder. REPRODUCTIVE: The prostate is mildly enlarged. BONES: Severe scoliosis in the thoracic and lumbar spine is again noted. No evidence of destructive bony lesion. OTHER FINDINGS: None. IMPRESSION: 7.5 millimeter low-attenuation lesion at the anterior aspect of the left liver lobe, not clearly seen in the previous exam. Suboptimal assessment of the distal large bowel. Suspicious for focal thickening at the distal rectum/ rectal anal junction. No evidence of bowel obstruction. .
--- NOTE | 2016-06-02 11:12 | CP.PCM.CON ---
History of Present Illness - History of Present Illness History of Present Illness: Mr Casper Orellana is a 60 year old male with a newly diagnosed rectal prolapse as well as rectal mass. He was seen by Dr Larson on May 23 for a rectal prolapse which he had for years. He was having pain in the rectal region, and was found to have thrombosed hemorrhoids. There was also a mass along the left lateral wall just proximal to the sphincter. In light of this, he was admitted to [facility] for further evaluation and intervention. On May 29, 2016, on examination, the rectal prolapse was 70% circumferential with 30% fixation. There was a deep mass of presumed anal origin. He then proceed with a partial protectomy. The preliminary pathology reveals mucinous adenocarcinoma. He also had a CT of the abdomen and pelvis on June 01, 2016 as part of the staging work-up. The results are currently pending. Dr Perez has been consulted for an evaluation from a systemic perspective. We are seeing the patient today for our input regarding radiation. Review of Systems - Constitutional Constitutional: Headache - Respiratory Respiratory: Dyspnea - Gastrointestinal Gastrointestinal: Abdominal Pain, Constipation, Hematochezia - Genitourinary Genitourinary: Difficulty Urinating Past Patient History - Past Medical History & Family History Past Medical History?: Yes - Past Social History Smoking Status: Former Smoker (Quit 9 years ago) Alcohol: None Home Situation {Lives}: With Family - CARDIAC Hx Hypertension: Yes - PULMONARY Hx Asthma: Yes - INTEGUMENTARY Other/Comment: neurofibromatosis - MUSCULOSKELETAL/RHEUMATOLOGICAL Hx Falls: No Other/Comment: Levoscoliosis - GASTROINTESTINAL Hx Hemorrhoids: Yes Other/Comment: rectal prolapse - GENITOURINARY/GYNECOLOGICAL Hx Prostate Problems: Yes - PSYCHIATRIC Hx Substance Use: No - ANESTHESIA Hx Anesthesia: No Hx Anesthesia Reactions: No Meds Allergies/Adverse Reactions: Allergies Allergy/AdvReac Type Severity Reaction Status Date / Time No Known Allergies Allergy Verified 05/28/16 09:49 - Medications Medications: Current Medications Albuterol/Ipratropium (Duoneb 3 Mg/0.5 Mg (3 Ml) Ud) 3 ml INH RQ8 [facility] Last Admin: 06/02/16 07:42 Dose: 3 ml Docusate Sodium (Colace) 100 mg PO BID [facility] Last Admin: 06/01/16 17:18 Dose: Not Given Enalapril Maleate (Vasotec) 5 mg PO DAILY [facility] Last Admin: 06/01/16 10:53 Dose: 5 mg Finasteride (Proscar) 5 mg PO DAILY [facility] Lactulose (Enulose) 20 gm PO BID [facility] Last Admin: 06/01/16 17:18 Dose: Not Given Fluticasone/Salmeterol (Advair Diskus 100/50) 1 puff INH RQ12 [facility] Tamsulosin HCl (Flomax) 0.4 mg PO DAILY [facility] Physical Exam - Head Exam Head Exam: NORMAL INSPECTION - Eye Exam Eye Exam: EOMI - ENT Exam ENT Exam: Mucous Membranes Moist - Respiratory Exam Respiratory Exam: Clear to Auscultation Bilateral - Cardiovascular Exam Cardiovascular Exam: REGULAR RHYTHM - GI/Abdominal Exam GI & Abdominal Exam: Normal Bowel Sounds (tenderness in the lower pelvis) - Rectal Exam Rectal Exam: Deferred, Bloody Stool - Back Exam Additional comments: + scoliosis - Neurological Exam Neurological exam: CN II-XII Intact, Oriented x3 - Skin Additional comments: + neurofibromas throughout body and cafe au lait spots Results - Vital Signs Recent Vital Signs: Last Vital Signs Temp 98.2 F 06/02/16 07:27 Pulse 98 H 06/02/16 07:27 Resp 20 06/02/16 07:27 BP 138/87 06/02/16 07:27 Pulse Ox 99 06/02/16 07:27 - Labs Result Diagrams: 06/02/16 07:40 06/02/16 07:40 Labs: Laboratory Results - last 24 hr 06/01/16 06/02/16 11:20 07:40 WBC 10.4 10.1 RBC 5.06 5.00 Hgb 15.2 14.3 Hct 44.9 43.9 MCV 88.9 87.9 MCH 30.1 28.7 MCHC 33.8 32.6 L RDW 13.1 13.2 Plt Count 332 363 MPV 6.7 L 6.4 L Neut % (Auto) 73.3 70.0 Lymph % (Auto) 15.9 L 18.2 L [place] % (Auto) 10.2 H 11.0 H Eos % (Auto) 0.2 0.3 Baso % (Auto) 0.4 0.5 Neut # 7.6 H 7.1 H Lymph # 1.7 1.8 [place] # 1.1 H 1.1 H Eos # 0.0 0.0 Baso # 0.0 0.0 Sodium 138 134 Potassium 3.2 L 3.8 Chloride 92 L 93 L Carbon Dioxide 29 25 Anion Gap 20 20 BUN 8 L 9 Creatinine 0.6 L 0.7 L Est GFR ( Amer) > 60 > 60 Est GFR (Non-Af Amer) > 60 > 60 Random Glucose 96 94 Calcium 8.9 8.8 Phosphorus 3.3 3.6 Magnesium 1.8 1.8 Total Bilirubin 0.9 1.1 AST 29 24 ALT 25 26 Alkaline Phosphatase 55 64 Total Protein 7.5 7.3 Albumin 4.1 4.0 Globulin 3.4 3.3 Albumin/Globulin Ratio 1.2 1.2 Prostate Specific Ag 1.72 Assessment & Plan - Assessment and Plan (Free Text) Assessment: Mr Casper Orellana is a 60 year old male with a newly diagnosed rectal prolapse as well as rectal mass. He had a CT of the abdomen and pelvis as part of his work-up. The results are pending. In order to determine whether he will need preoperative chemoradiation , we will need to know the extent of his primary disease and whether there is any april involvement. If the CT scan cannot delineate clearly the primary extent of his disease, it would be prudent as part of rectal staging to have an EUS (if feasible) or MRI of the pelvis to determine the T-stage and whether there are regional nodes. For tumors that are T3/T4 or have N disease, he would warrant preoperative chemoradiation followed by surgical resection. In our discussion with you, because of the low lying nature of the tumor, you felt that the surgery would be an APR. We will await the initial tests to determine the exact stage of his cancer to ascertain whether preoperative chemoradiation is warranted. We know from phase 3 studies for locally advanced rectal cancer that preoperative chemoradiation reduces the risk of locoregional recurrence and morbidity. If he requires preoperative chemoradiation, we will have him return for a CT simulation. We will be in close contact with Dr Larson and Dr Perez so we can finalize a plan.
--- NOTE | 2016-06-02 12:18 | CON ---
DATE: 06/02/2016 REASON FOR CONSULT: Rectal polyp and anal tumor. HISTORY OF PRESENT ILLNESS: This is a 60-year-old male with history of asthma, hypertension, and lev oscoliosis, who was seen in Dr. Larson's office a week ago for rectus/anal mass. The patient was admitted to the hospital, underwent surgical evaluation, and was found to have a rect al polyp and anal mass, which were both biopsied. Pathology of both is not ready at this time. The patient also underwent a CAT scan of the abdomen and pelvis which is also not read at this time. The patient was deemed to have rectal/anal cancer and has been referred to oncology and radiation for further intervention. PAST MEDICAL HISTORY: Asthma, hypertension, levoscoliosis. MEDICATIONS: DuoNeb, and lisinopril. ALLERGIES: No known drug allergies. On physical exam, temperature is 98.2, blood pressure is 132/72, pulse is 76. HENT: PERRLA. No pallor is seen. NECK: Supple. CHEST: Bilateral air entry is fair. CARDIOVASCULAR SYSTEM: S1, S2, regular rate and rhythm. ABDOMEN: Soft. EXTREMITIES: No edema. LABORATORIES: Show a white count of 10,000, hemoglobin of 15, platelets of 300,000. ASSESSMENT AND PLAN: A 60-year-old male with rectal polyp and anal mass. Will await pathology for f inal diagnosis. Once that is obtained, will coordinate treatment plan with radiation, Dr. Child, to de cide further intervention. Thank you for the consult. Will follow the patient with you as an outpatient. Ester Perez MD cc: [id number] TT: 06/02/2016 12:17:55 Confirmation # [id number] Dictation # [id number] deepak
--- NOTE | 2016-06-02 16:28 | CP.PCM.PN ---
Subjective - Date & Time of Evaluation Date of Evaluation: 06/02/16 Time of Evaluation: 08:30 - Subjective Subjective: PGY [address] Mcknight Patient seen and examined at bedside. No overnight events as per nursing. Patient is s/p partial protectomy with anastomosis and rectal polypectomy with biopsy of anal tumor POD 4. 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 Dr Perez has been consulted for possible radiation/chemo. Patient has no acute complaints today. Objective - Vital Signs/Intake and Output Vital Signs (last 24 hours): Temp Pulse Resp BP Pulse Ox 98.2 F 98 H 20 126/80 99 06/02/16 07:27 06/02/16 07:27 06/02/16 07:27 06/02/16 12:30 06/02/16 07:27 Intake and Output: 06/02/16 06/02/16 06:59 18:59 Intake Total 600 300 Output Total 1600 300 Balance -1000 0 - Medications Medications: Current Medications Albuterol/Ipratropium (Duoneb 3 Mg/0.5 Mg (3 Ml) Ud) 3 ml INH RQ8 [facility] Last Admin: 06/02/16 07:42 Dose: 3 ml Docusate Sodium (Colace) 100 mg PO BID [facility] Last Admin: 06/02/16 12:30 Dose: Not Given Enalapril Maleate (Vasotec) 5 mg PO DAILY [facility] Last Admin: 06/02/16 12:30 Dose: 5 mg Finasteride (Proscar) 5 mg PO DAILY [facility] Last Admin: 06/02/16 12:30 Dose: 5 mg Lactulose (Enulose) 20 gm PO BID [facility] Last Admin: 06/02/16 12:30 Dose: Not Given Fluticasone/Salmeterol (Advair Diskus 100/50) 1 puff INH RQ12 [facility] Tamsulosin HCl (Flomax) 0.4 mg PO DAILY [facility] Last Admin: 06/02/16 12:30 Dose: 0.4 mg - Labs Labs: 06/02/16 07:40 06/02/16 07:40 PT 14.6 SECONDS (9.7-12.2) H 05/30/16 06:59 INR 1.3 05/30/16 06:59 APTT 31 SECONDS (21-34) 05/30/16 06:59 - Constitutional Appears: Non-toxic, No Acute Distress - Head Exam Head Exam: ATRAUMATIC, NORMAL INSPECTION - Eye Exam Eye Exam: EOMI, Normal appearance, PERRL Pupil Exam: NORMAL ACCOMODATION - ENT Exam ENT Exam: Mucous Membranes Moist - Neck Exam Neck Exam: Normal Inspection - Respiratory Exam Respiratory Exam: Clear to Ausculation Bilateral, NORMAL BREATHING PATTERN. absent: Respiratory Distress - Cardiovascular Exam Cardiovascular Exam: REGULAR RHYTHM, +S1, +S2 - GI/Abdominal Exam GI & Abdominal Exam: Soft, Normal Bowel Sounds. absent: Distended, Firm, Guarding, Tenderness - Extremities Exam Extremities Exam: Normal Inspection. absent: Calf Tenderness, Pedal Edema
[2016-06-02] MEDS: Fluticasone-Salmeterol 100-50mcg Diskus INH SCH (20:49)
[2016-06-03] MEDS: Albuterol-Ipratrop 3 mg / 0.5 (3 ml) UD INH SCH ×4 (00:56→16:34)
[2016-06-03] MEDS: Fluticasone-Salmeterol 100-50mcg Diskus INH SCH (08:55)
[2016-06-03 09:27] LABS: BASO % 0.3 % (0.0-2.0); EOS % 0.2 % (0.0-4.0); HEMATOCRIT 42.5 % (35.0-51.0); LYMPH # 1.4 K/uL (1.0-4.3); LYMPH % 14.8 % (20.0-40.0); MEAN CELL VOLUME 87.9 fL (80.0-94.0); MEAN CORPUSCULAR HEMOGLOBIN 29.8 pg (27.0-31.0); MEAN CORPUSCULAR HGB CONC 33.9 g/dL (33.0-37.0); MEAN PLATELET VOLUME 6.5 fL (7.2-11.7); MONO # 0.8 K/uL (0.0-0.8); RED CELL DISTRIBUTION WIDTH 13.2 % (11.5-14.5); WHITE BLOOD COUNT 9.2 K/uL (4.8-10.8)
[2016-06-03 09:43] LABS: CHLORIDE 93 mmol/L (98-107); SODIUM 135 mmol/L (132-148)
[2016-06-03 09:45] LABS: ALB/GLOB RATIO 1.1 (1.0-2.1); ALKALINE PHOSPHATASE 53 U/L (38-126); AST/SGOT 20 U/L (17-59); BILIRUBIN,TOTAL 1.1 mg/dL (0.2-1.3); BLOOD UREA NITROGEN 17 mg/dL (9-20); CARBON DIOXIDE 28 mmol/L (22-30); GFR AFRICAN-AMERICAN > 60; TOTAL PROTEIN 7.1 g/dL (6.3-8.3)
[2016-06-03 09:46] LABS: ALT/SGPT 28 U/L (21-72); CALCIUM 8.8 mg/dl (8.6-10.4); GLUCOSE,RANDOM 155 mg/dL (75-110); MAGNESIUM 1.9 mg/dL (1.6-2.3); PHOSPHOROUS 3.6 mg/dL (2.5-4.5)
--- NOTE | 2016-06-03 11:47 | CP.PCM.CON ---
History of Present Illness - History of Present Illness History of Present Illness: ASked to see patient for EGD to R/O gastric lesion. Pt has had rectal prolapse x yrs. Was worse recently with pain. Found to have a mass at ano- rectum. Biopsy shows adencarcinoma- mucinous. R/O gastric lesion. Pt reports lower abdom pain and wt loss. Review of Systems - Constitutional Constitutional: Anorexia - Cardiovascular Cardiovascular: absent: Chest Pain, Dyspnea - Respiratory Respiratory: absent: Dyspnea, Hemoptysis - Gastrointestinal Gastrointestinal: Abdominal Pain, Hematochezia. absent: Hematemesis, Melena - Genitourinary Genitourinary: absent: Hematuria - Integumentary Integumentary: absent: Jaundice - Neurological Neurological: absent: Convulsions Past Patient History - Past Medical History & Family History Past Medical History?: Yes - Past Social History Smoking Status: Former Smoker (Quit 9 years ago) Alcohol: None Home Situation {Lives}: With Family - CARDIAC Hx Hypertension: Yes - PULMONARY Hx Asthma: Yes - INTEGUMENTARY Other/Comment: neurofibromatosis - MUSCULOSKELETAL/RHEUMATOLOGICAL Hx Falls: No Other/Comment: Levoscoliosis - GASTROINTESTINAL Hx Hemorrhoids: Yes Other/Comment: rectal prolapse - GENITOURINARY/GYNECOLOGICAL Hx Prostate Problems: Yes - PSYCHIATRIC Hx Substance Use: No - ANESTHESIA Hx Anesthesia: No Hx Anesthesia Reactions: No Meds Allergies/Adverse Reactions: Allergies Allergy/AdvReac Type Severity Reaction Status Date / Time No Known Allergies Allergy Verified 05/28/16 09:49 - Medications Medications: Current Medications Albuterol/Ipratropium (Duoneb 3 Mg/0.5 Mg (3 Ml) Ud) 3 ml [facility]H RQ8 [facility] Last Admin: 06/03/16 08:55 Dose: 3 ml Docusate Sodium (Colace) 100 mg PO BID [facility] Last Admin: 06/03/16 10:16 Dose: Not Given Enalapril Maleate (Vasotec) 5 mg PO DAILY [facility] Last Admin: 06/03/16 10:15 Dose: 5 mg Finasteride (Proscar) 5 mg PO DAILY [facility] Last Admin: 06/03/16 10:16 Dose: 5 mg Lactulose (Enulose) 20 gm PO BID [facility] Last Admin: 06/03/16 10:16 Dose: Not Given Fluticasone/Salmeterol (Advair Diskus 100/50) 1 puff INH RQ12 [facility] Last Admin: 06/03/16 08:55 Dose: 1 puff Tamsulosin HCl (Flomax) 0.4 mg PO DAILY [facility] Last Admin: 06/03/16 10:16 Dose: 0.4 mg Physical Exam - Constitutional Appears: Cachectic - Respiratory Exam Respiratory Exam: Clear to Auscultation Bilateral - Cardiovascular Exam Cardiovascular Exam: RRR - GI/Abdominal Exam GI & Abdominal Exam: Normal Bowel Sounds, Soft. absent: Guarding, Mass - Extremities Exam Extremities exam: Negative for: calf tenderness - Neurological Exam Neurological exam: Alert, Oriented x3 - Psychiatric Exam Psychiatric exam: Anxious - Skin Skin Exam: Intact Results - Vital Signs Recent Vital Signs: Last Vital Signs Temp 97.8 F 06/03/16 08:52 Pulse 104 H 06/03/16 08:52 Resp 20 06/03/16 08:52 BP 126/65 06/03/16 10:15 Pulse Ox 95 06/03/16 08:52 - Labs Result Diagrams: 06/03/16 09:17 06/03/16 09:17 Labs: Laboratory Results - last 24 hr 06/03/16 09:17 WBC 9.2 RBC 4.83 Hgb 14.4 Hct 42.5 MCV 87.9 MCH 29.8 MCHC 33.9 RDW 13.2 Plt Count 339 MPV 6.5 L Neut % (Auto) 75.7 H Lymph % (Auto) 14.8 L [place] % (Auto) 9.0 Eos % (Auto) 0.2 Baso % (Auto) 0.3 Neut # 7.0 Lymph # 1.4 [place] # 0.8 Eos # 0.0 Baso # 0.0 Sodium 135 Potassium 4.0 Chloride 93 L Carbon Dioxide 28 Anion Gap 18 BUN 17 Creatinine 0.6 L Est GFR ( Amer) > 60 Est GFR (Non-Af Amer) > 60 Random Glucose 155 H Calcium 8.8 Phosphorus 3.6 Magnesium 1.9 Total Bilirubin 1.1 AST 20 ALT 28 Alkaline Phosphatase 53 Total Protein 7.1 Albumin 3.7 Globulin 3.4 Albumin/Globulin Ratio 1.1 Assessment & Plan (1) Mass in rectum Assessment and Plan: Biopsy shows adenocarcinoma with mucinous component. We are asked to do EGD to r/o gastric mass. Status: Acute (2) Thrombosed external hemorrhoid Status: Acute (3) Rectal prolapse Status: Acute
--- NOTE | 2016-06-03 22:16 | CP.PCM.PN ---
<Jonathan Magallon - Last Filed: 06/03/16 22:31> Subjective - Date & Time of Evaluation Date of Evaluation: 06/03/16 Time of Evaluation: 09:50 - Subjective Subjective: PGY [address] Mcknight Patient seen and examined at bedside. No overnight events as per nursing. Patient is s/p partial protectomy with anastomosis and rectal polypectomy with biopsy of anal tumor POD 5. 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 Patient has no acute complaints today and denies fever, chills , chest pain, difficulty breathing. Objective - Vital Signs/Intake and Output Vital Signs (last 24 hours): Temp Pulse Resp BP Pulse Ox 97.8 F 104 H 20 126/65 95 06/03/16 08:52 06/03/16 17:52 06/03/16 08:52 06/03/16 10:15 06/03/16 08:52 Intake and Output: 06/03/16 06/04/16 18:59 06:59 Intake Total 400 Balance 400 - Medications Medications: Current Medications Albuterol/Ipratropium (Duoneb 3 Mg/0.5 Mg (3 Ml) Ud) 3 ml INH RQ8 [facility] Last Admin: 06/03/16 16:34 Dose: 3 ml Docusate Sodium (Colace) 100 mg PO BID [facility] Last Admin: 06/03/16 17:55 Dose: Not Given Enalapril Maleate (Vasotec) 5 mg PO DAILY [facility] Last Admin: 06/03/16 10:15 Dose: 5 mg Finasteride (Proscar) 5 mg PO DAILY [facility] Last Admin: 06/03/16 10:16 Dose: 5 mg Lactulose (Enulose) 20 gm PO BID [facility] Last Admin: 06/03/16 17:55 Dose: Not Given Fluticasone/Salmeterol (Advair Diskus 100/50) 1 puff INH RQ12 [facility] Last Admin: 06/03/16 08:55 Dose: 1 puff Tamsulosin HCl (Flomax) 0.4 mg PO DAILY [facility] Last Admin: 06/03/16 10:16 Dose: 0.4 mg - Labs Labs: 06/03/16 09:17 06/03/16 09:17 PT 14.6 SECONDS (9.7-12.2) H 05/30/16 06:59 INR 1.3 05/30/16 06:59 APTT 31 SECONDS (21-34) 05/30/16 06:59 - Constitutional Appears: Non-toxic, No Acute Distress - Head Exam Head Exam: ATRAUMATIC - Eye Exam Eye Exam: EOMI, Normal appearance Pupil Exam: NORMAL ACCOMODATION - ENT Exam ENT Exam: Mucous Membranes Moist - Neck Exam Neck Exam: Normal Inspection - Respiratory Exam Respiratory Exam: Clear to Ausculation Bilateral, NORMAL BREATHING PATTERN - Cardiovascular Exam Cardiovascular Exam: REGULAR RHYTHM, +S1, +S2 - GI/Abdominal Exam GI & Abdominal Exam: Soft, Normal Bowel Sounds. absent: Distended, Firm, Guarding - Extremities Exam Extremities Exam: Normal Inspection. absent: Joint Swelling, Pedal Edema - Neurological Exam Neurological Exam: Alert, Awake - Psychiatric Exam Psychiatric exam: Normal Affect, Normal Mood Assessment and Plan - Assessment and Plan (Free Text) Plan: Rectal mass/prolapse Surgical plans per Dr Larson - Pt had a partial protectomy procedure on . Management/pain management as per primary surgical team. Patient has low cardiac risk (0.4%) for non-cardiac procedure; also, despite asthma and severe scoliosis history, ABG is relatively re-assuring with close to normal PO2 and no hypercapnea. Pathology: Rectal adenocarcinoma Rad onc consulted. -For rectal staging to have an EUS (if feasible) or MRI of the pelvis to determine the T-stage and whether there are regional nodes. GI consult - Dr. Link -Biopsy shows adenocarcinoma with mucinous component. We are asked to do EGD to r/o gastric mass. -follow up with GI on 06/04 CT Abd/Pel: 7.5mm low-attenuation lesion at the anterior aspect of the left liver lobe, not clearly seen in the previous exam. Urinary retention Piña in place Pt with hx of BPH states he used to be on meds to help but hasn't taken in two years Patient was complaining of burning sensation related to piña catheter; nursing staff was asked to change catheter; otherwise, patient placed on flomax and finasteride for urinary retention; can give voiding trial in a few days; Dr. Alfredo Panda consulted, help appreciated - f/u recs -patient can be discharged with piña and leg bag with outpatient f/u; HTN [id number] PO daily Monitor and adjust if needed. Asthma Duoneb RQ8 [facility] Consider inhaled steroid as patient was using his albuterol pump frequently at home Started on advair due to inhaler use consistent with persistent asthma. Hypokalemia 06/03 resolved K = 3.2 Kdur 40 mew x 1 dose f/u am labs and Mg level Levoscoliosis Pulm Dr. Velazquez consulted - help appreciated ABG is relatively re-assuring with close to normal PO2 and no hypercapnea. Patient is a moderate risk for surgery due to severe levoscoliotic curve. <Eb Mcknight - Last Filed: 06/04/16 09:24> Objective - Vital Signs/Intake and Output Vital Signs (last 24 hours): Temp Pulse Resp BP Pulse Ox 97.8 F 108 H 20 136/87 96 06/04/16 08:16 06/04/16 08:16 06/04/16 08:16 06/04/16 08:16 06/04/16 08:16 Intake and Output: 06/04/16 06/04/16 06:59 18:59 Intake Total 250 Balance 250 - Medications Medications: Current Medications Albuterol/Ipratropium (Duoneb 3 Mg/0.5 Mg (3 Ml) Ud) 3 ml INH RQ8 [facility] Last Admin: 06/04/16 08:40 Dose: 3 ml Docusate Sodium (Colace) 100 mg PO BID [facility] Last Admin: 06/03/16 17:55 Dose: Not Given Enalapril Maleate (Vasotec) 5 mg PO DAILY [facility] Last Admin: 06/03/16 10:15 Dose: 5 mg Finasteride (Proscar) 5 mg PO DAILY [facility] Last Admin: 06/03/16 10:16 Dose: 5 mg Lactulose (Enulose) 20 gm PO BID [facility] Last Admin: 06/03/16 17:55 Dose: Not Given Fluticasone/Salmeterol (Advair Diskus 100/50) 1 puff INH RQ12 [facility] Last Admin: 06/04/16 08:44 Dose: 1 puff Tamsulosin HCl (Flomax) 0.4 mg PO DAILY [facility] Last Admin: 06/03/16 10:16 Dose: 0.4 mg - Labs Labs: 06/04/16 06:55 06/04/16 06:55 PT 14.6 SECONDS (9.7-12.2) H 05/30/16 06:59 INR 1.3 05/30/16 06:59 APTT 31 SECONDS (21-34) 05/30/16 06:59 Attending/Attestation - Attestation I have personally seen and examined this patient.: Yes I have fully participated in the care of the patient.: Yes I have reviewed all pertinent clinical information, including history, physical exam and plan: Yes Notes (Text): Patient with asthma/COPD, levoscoliosis, admitted to surgical service with rectal proplapse, underwent proctectomy; 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
[2016-06-03] MEDS ORDERED: Oxycodone/Acetaminophen 5/325 mg Tab PO STA (22:52)
[2016-06-04 07:13] LABS: BASO # 0.1 K/uL (0.0-0.2); BASO % 1.2 % (0.0-2.0); EOS # 0.1 K/uL (0.0-0.7); EOS % 0.6 % (0.0-4.0); HEMATOCRIT 42.1 % (35.0-51.0); LYMPH # 1.7 K/uL (1.0-4.3); LYMPH % 20.7 % (20.0-40.0); MEAN CORPUSCULAR HEMOGLOBIN 29.4 pg (27.0-31.0); MEAN CORPUSCULAR HGB CONC 33.4 g/dL (33.0-37.0); MEAN PLATELET VOLUME 6.4 fL (7.2-11.7); MONO # 0.9 K/uL (0.0-0.8); MONO % 10.6 % (0.0-10.0); WHITE BLOOD COUNT 8.3 K/uL (4.8-10.8)
[2016-06-04 07:21] LABS: CHLORIDE 94 mmol/L (98-107); SODIUM 132 mmol/L (132-148)
[2016-06-04 07:22] LABS: POTASSIUM 4.1 mmol/L (3.6-5.2)
[2016-06-04 07:23] LABS: GFR AFRICAN-AMERICAN > 60
[2016-06-04 07:24] LABS: ALB/GLOB RATIO 1.1 (1.0-2.1); ALKALINE PHOSPHATASE 58 U/L (38-126); ALT/SGPT 29 U/L (21-72); AST/SGOT 22 U/L (17-59); BILIRUBIN,TOTAL 1.2 mg/dL (0.2-1.3); BLOOD UREA NITROGEN 21 mg/dL (9-20); CARBON DIOXIDE 28 mmol/L (22-30); GLUCOSE,RANDOM 98 mg/dL (75-110); TOTAL PROTEIN 7.1 g/dL (6.3-8.3)
[2016-06-04 07:25] LABS: CALCIUM 8.6 mg/dl (8.6-10.4)
[2016-06-04] MEDS: Albuterol-Ipratrop 3 mg / 0.5 (3 ml) UD INH SCH ×2 (08:40→16:41)
[2016-06-04] MEDS: Fluticasone-Salmeterol 100-50mcg Diskus INH SCH ×2 (08:44→19:36)
--- NOTE | 2016-06-04 10:55 | CP.PCM.PN ---
Subjective - Date & Time of Evaluation Date of Evaluation: 06/04/16 Time of Evaluation: 10:25 - Subjective Subjective: F/U to rule ot gastric lesion. Reports lower pelvic pain. + wt loss. Denies fever, chills, CP, SOB, WELCH, cough, hematemesis, dysphagia, Objective - Vital Signs/Intake and Output Vital Signs (last 24 hours): Temp Pulse Resp BP Pulse Ox 97.8 F 108 H 20 136/87 96 06/04/16 08:16 06/04/16 08:16 06/04/16 08:16 06/04/16 10:20 06/04/16 08:16 Intake and Output: 06/04/16 06/04/16 06:59 18:59 Intake Total 250 Balance 250 - Medications Medications: Current Medications Albuterol/Ipratropium (Duoneb 3 Mg/0.5 Mg (3 Ml) Ud) 3 ml INH RQ8 [facility] Last Admin: 06/04/16 08:40 Dose: 3 ml Docusate Sodium (Colace) 100 mg PO BID [facility] Last Admin: 06/04/16 10:20 Dose: Not Given Enalapril Maleate (Vasotec) 5 mg PO DAILY [facility] Last Admin: 06/04/16 10:20 Dose: 5 mg Finasteride (Proscar) 5 mg PO DAILY [facility] Last Admin: 06/04/16 10:19 Dose: 5 mg Lactulose (Enulose) 20 gm PO BID [facility] Last Admin: 06/04/16 10:20 Dose: Not Given Fluticasone/Salmeterol (Advair Diskus 100/50) 1 puff INH RQ12 [facility] Last Admin: 06/04/16 08:44 Dose: 1 puff Tamsulosin HCl (Flomax) 0.4 mg PO DAILY [facility] Last Admin: 06/04/16 10:19 Dose: 0.4 mg - Labs Labs: 06/04/16 06:55 06/04/16 06:55 PT 14.6 SECONDS (9.7-12.2) H 05/30/16 06:59 INR 1.3 05/30/16 06:59 APTT 31 SECONDS (21-34) 05/30/16 06:59 - Constitutional Appears: Cachectic - Neck Exam Neck Exam: absent: Tenderness - Respiratory Exam Respiratory Exam: Clear to Ausculation Bilateral - Cardiovascular Exam Cardiovascular Exam: RRR - GI/Abdominal Exam GI & Abdominal Exam: Soft, Normal Bowel Sounds - Extremities Exam Extremities Exam: absent: Calf Tenderness - Neurological Exam Neurological Exam: Alert, Awake, Oriented x3 Assessment and Plan (1) Mass in rectum Assessment & Plan: Biopsy shows adenocarcinoma withmucin. We are asked to r/o gastric primary with EGD. Status: Acute (2) Thrombosed external hemorrhoid Status: Acute (3) Rectal prolapse Status: Acute
[2016-06-04] MEDS ORDERED: Oxycodone/Acetaminophen 5/325 mg Tab PO PRN (19:42)
--- NOTE | 2016-06-04 22:06 | CP.PCM.PN ---
<Jonathan Magallon - Last Filed: 06/05/16 02:14> Subjective - Date & Time of Evaluation Date of Evaluation: 06/04/16 Time of Evaluation: 08:20 - Subjective Subjective: PGY [address] Mcknight Patient seen and examined at bedside. No overnight events as per nursing. Patient is s/p partial protectomy with anastomosis and rectal polypectomy with biopsy of anal tumor POD 6. 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 Pt. comlains of abdominal pain. He denies fever, chills, chest pain, difficulty breathing. Possible EGD is planned for this week. Objective - Vital Signs/Intake and Output Vital Signs (last 24 hours): Temp Pulse Resp BP Pulse Ox 97.8 F 100 H 20 118/79 95 06/04/16 16:00 06/04/16 16:00 06/04/16 16:00 06/04/16 16:00 06/04/16 16:00 Intake and Output: 06/04/16 06/05/16 18:59 06:59 Intake Total 500 Output Total 800 Balance -300 - Medications Medications: Current Medications Albuterol/Ipratropium (Duoneb 3 Mg/0.5 Mg (3 Ml) Ud) 3 ml INH RQ8 [facility] Last Admin: 06/04/16 16:41 Dose: 3 ml Docusate Sodium (Colace) 100 mg PO BID [facility] Last Admin: 06/04/16 19:45 Dose: 100 mg Enalapril Maleate (Vasotec) 5 mg PO DAILY [facility] Last Admin: 06/04/16 10:20 Dose: 5 mg Famotidine (Pepcid) 20 mg PO DAILY [facility] Finasteride (Proscar) 5 mg PO DAILY [facility] Last Admin: 06/04/16 10:19 Dose: 5 mg Lactulose (Enulose) 20 gm PO BID [facility] Last Admin: 06/04/16 19:45 Dose: 20 gm Oxycodone/Acetaminophen (Percocet 5/325 Mg Tab) 2 tab PO Q4H PRN PRN Reason: severe pain Stop: 06/07/16 19:43 Last Admin: 06/04/16 20:13 Dose: 2 tab Pantoprazole Sodium (Protonix Inj) 40 mg IVP DAILY [facility] Last Admin: 06/04/16 20:13 Dose: 40 mg Fluticasone/Salmeterol (Advair Diskus 100/50) 1 puff INH RQ12 [facility] Last Admin: 06/04/16 19:36 Dose: 1 puff Tamsulosin HCl (Flomax) 0.4 mg PO DAILY [facility] Last Admin: 06/04/16 10:19 Dose: 0.4 mg Tramadol HCl (Ultram) 25 mg PO Q6 PRN PRN Reason: Pain, moderate (4-7) - Labs Labs: 06/04/16 06:55 06/04/16 06:55 PT 14.6 SECONDS (9.7-12.2) H 05/30/16 06:59 INR 1.3 05/30/16 06:59 APTT 31 SECONDS (21-34) 05/30/16 06:59 - Constitutional Appears: No Acute Distress - Head Exam Head Exam: ATRAUMATIC, NORMOCEPHALIC - Eye Exam Eye Exam: EOMI - ENT Exam ENT Exam: Mucous Membranes Moist - Respiratory Exam Respiratory Exam: Clear to Ausculation Bilateral, NORMAL BREATHING PATTERN - Cardiovascular Exam Cardiovascular Exam: REGULAR RHYTHM, +S1, +S2 - GI/Abdominal Exam GI & Abdominal Exam: Soft, Tenderness, Hypoactive Bowel Sounds - Extremities Exam Extremities Exam: absent: Joint Swelling, Tenderness - Neurological Exam Neurological Exam: Alert, Awake - Psychiatric Exam Psychiatric exam: Normal Affect, Normal Mood - Skin Skin Exam: Dry, Intact Additional comments: Neurofibromas Assessment and Plan - Assessment and Plan (Free Text) Plan: Rectal mass/prolapse Surgical plans per Dr Larson - Pt had a partial protectomy procedure on . Management/pain management as per primary surgical team. Patient has low cardiac risk (0.4%) for non-cardiac procedure; also, despite asthma and severe scoliosis history, ABG is relatively re-assuring with close to normal PO2 and no hypercapnea. Pathology: Rectal adenocarcinoma Rad onc consulted. -For rectal staging to have an EUS (if feasible) or MRI of the pelvis to determine the T-stage and whether there are regional nodes. GI consult - Dr. Link -Biopsy shows adenocarcinoma with mucinous component. We are asked to do EGD to r/o gastric mass. -follow up with GI on 06/05 CT Abd/Pel: 7.5mm low-attenuation lesion at the anterior aspect of the left liver lobe, not clearly seen in the previous exam. Urinary retention Piña in place - clear yellow Pt with hx of BPH states he used to be on meds to help but hasn't taken in two years Patient was complaining of burning sensation related to piña catheter; nursing staff was asked to change catheter; otherwise, patient placed on flomax and finasteride for urinary retention; can give voiding trial in a few days; Dr. Alfredo Panda consulted, help appreciated - f/u recs -patient can be discharged with piña and leg bag with outpatient f/u; HTN [id number] PO daily Monitor and adjust if needed. Asthma Duoneb RQ8 [facility] Consider inhaled steroid as patient was using his albuterol pump frequently at home Started on advair due to inhaler use consistent with persistent asthma. Hypokalemia 06/03 resolved K = 3.2 Kdur 40 mew x 1 dose f/u am labs and Mg level Levoscoliosis Pulm Dr. Velazquez consulted - help appreciated ABG is relatively re-assuring with close to normal PO2 and no hypercapnea. Patient is a moderate risk for surgery due to severe levoscoliotic curve. <Eb Mcknight - Last Filed: 06/27/16 22:26> Objective - Vital Signs/Intake and Output Vital Signs (last 24 hours): Temp Pulse Resp BP Pulse Ox 97.6 F 92 H 20 164/91 H 98 06/16/16 15:21 06/16/16 22:45 06/16/16 15:21 06/16/16 15:21 06/16/16 15:21 - Labs Labs: 06/12/16 07:01 06/12/16 07:01 PT 12.6 SECONDS (9.7-12.2) H 06/12/16 07:01 INR 1.1 06/12/16 07:01 APTT 30 SECONDS (21-34) 06/12/16 07:01 Attending/Attestation - Attestation I have personally seen and examined this patient.: Yes I have fully participated in the care of the patient.: Yes I have reviewed all pertinent clinical information, including history, physical exam and plan: Yes
[2016-06-05] MEDS: Albuterol-Ipratrop 3 mg / 0.5 (3 ml) UD INH SCH ×4 (00:49→23:28)
--- NOTE | 2016-06-05 08:32 | CP.PCM.PN ---
Subjective - Date & Time of Evaluation Date of Evaluation: 06/05/16 Time of Evaluation: 08:30 - Subjective Subjective: Mr Casper Orellana is a patient known to our radiation dept. He was seen last week in consultation. We were awaiting the CT of the abdomen and pelvis which unfortunately was suboptimal due to stool and could not assess the local extent of his disease. We had spoke to Dr Larson about the importance of knowing the stage of his cancer prior to finalizing a treatment plan. We have ordered a MRI of pelvis to ascertain the soft tissue extension of his rectal disease. If he is seen by GI, an EUS would tell us the T stage and whether there are perirectal nodes. Objective - Vital Signs/Intake and Output Vital Signs (last 24 hours): Temp Pulse Resp BP Pulse Ox 98.0 F 92 H 20 131/82 97 06/05/16 08:24 06/05/16 08:24 06/05/16 08:24 06/05/16 08:24 06/05/16 08:24 Intake and Output: 06/05/16 06/05/16 06:59 18:59 Intake Total 200 Output Total 400 Balance -200 - Medications Medications: Current Medications Albuterol/Ipratropium (Duoneb 3 Mg/0.5 Mg (3 Ml) Ud) 3 ml INH RQ8 [facility] Last Admin: 06/05/16 00:49 Dose: Not Given Docusate Sodium (Colace) 100 mg PO BID [facility] Last Admin: 06/04/16 19:45 Dose: 100 mg Enalapril Maleate (Vasotec) 5 mg PO DAILY [facility] Last Admin: 06/04/16 10:20 Dose: 5 mg Famotidine (Pepcid) 20 mg PO DAILY [facility] Finasteride (Proscar) 5 mg PO DAILY [facility] Last Admin: 06/04/16 10:19 Dose: 5 mg Lactulose (Enulose) 20 gm PO BID [facility] Last Admin: 06/04/16 19:45 Dose: 20 gm Oxycodone/Acetaminophen (Percocet 5/325 Mg Tab) 2 tab PO Q4H PRN PRN Reason: severe pain Stop: 06/07/16 19:43 Last Admin: 06/04/16 20:13 Dose: 2 tab Pantoprazole Sodium (Protonix Inj) 40 mg IVP DAILY [facility] Last Admin: 06/04/16 20:13 Dose: 40 mg Fluticasone/Salmeterol (Advair Diskus 100/50) 1 puff INH RQ12 [facility] Last Admin: 06/04/16 19:36 Dose: 1 puff Tamsulosin HCl (Flomax) 0.4 mg PO DAILY [facility] Last Admin: 06/04/16 10:19 Dose: 0.4 mg Tramadol HCl (Ultram) 25 mg PO Q6 PRN PRN Reason: Pain, moderate (4-7) - Labs Labs: 06/04/16 06:55 06/04/16 06:55 PT 14.6 SECONDS (9.7-12.2) H 05/30/16 06:59 INR 1.3 05/30/16 06:59 APTT 31 SECONDS (21-34) 05/30/16 06:59
[2016-06-05 08:41] LABS: BASO % 0.5 % (0.0-2.0); EOS # 0.1 K/uL (0.0-0.7); EOS % 0.7 % (0.0-4.0); HEMATOCRIT 39.8 % (35.0-51.0); LYMPH # 1.7 K/uL (1.0-4.3); LYMPH % 17.2 % (20.0-40.0); MEAN CELL VOLUME 88.7 fL (80.0-94.0); MEAN CORPUSCULAR HGB CONC 33.9 g/dL (33.0-37.0); MEAN PLATELET VOLUME 6.6 fL (7.2-11.7); MONO % 10.2 % (0.0-10.0); RED CELL DISTRIBUTION WIDTH 13.3 % (11.5-14.5); WHITE BLOOD COUNT 9.6 K/uL (4.8-10.8)
[2016-06-05 08:50] LABS: CHLORIDE 91 mmol/L (98-107); POTASSIUM 3.9 mmol/L (3.6-5.2); SODIUM 130 mmol/L (132-148)
[2016-06-05 08:52] LABS: GFR AFRICAN-AMERICAN > 60
[2016-06-05 08:53] LABS: ALB/GLOB RATIO 1.2 (1.0-2.1); ALKALINE PHOSPHATASE 54 U/L (38-126); ALT/SGPT 22 U/L (21-72); AST/SGOT 18 U/L (17-59); BILIRUBIN,TOTAL 0.9 mg/dL (0.2-1.3); BLOOD UREA NITROGEN 20 mg/dL (9-20); CARBON DIOXIDE 26 mmol/L (22-30); GLUCOSE,RANDOM 88 mg/dL (75-110); PHOSPHOROUS 3.5 mg/dL (2.5-4.5); TOTAL PROTEIN 6.7 g/dL (6.3-8.3)
[2016-06-05 08:54] LABS: CALCIUM 8.2 mg/dl (8.6-10.4)
--- NOTE | 2016-06-05 13:41 | CP.PCM.PN ---
<Briseyda Murphy - Last Filed: 06/05/16 13:37> Subjective - Date & Time of Evaluation Date of Evaluation: 06/05/16 Time of Evaluation: 07:20 - Subjective Subjective: PGY [address] Mcknight Patient seen and examined at bedside. No overnight events as per nursing. Patient is s/p partial protectomy with anastomosis and rectal polypectomy with biopsy of anal tumor POD 7. 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 Pt. complains of abdominal pain. He denies fever, chills, chest pain, difficulty breathing. EGD is planned for today. Objective - Vital Signs/Intake and Output Vital Signs (last 24 hours): Temp Pulse Resp BP Pulse Ox 98.0 F 92 H 20 131/82 97 06/05/16 08:24 06/05/16 08:24 06/05/16 08:24 06/05/16 08:24 06/05/16 08:24 Intake and Output: 06/05/16 06/05/16 06:59 18:59 Intake Total 200 Output Total 400 Balance -200 - Medications Medications: Current Medications Albuterol/Ipratropium (Duoneb 3 Mg/0.5 Mg (3 Ml) Ud) 3 ml INH RQ8 [facility] Last Admin: 06/05/16 09:09 Dose: Not Given Docusate Sodium (Colace) 100 mg PO BID [facility] Last Admin: 06/05/16 10:53 Dose: Not Given Enalapril Maleate (Vasotec) 5 mg PO DAILY [facility] Last Admin: 06/05/16 10:52 Dose: Not Given Famotidine (Pepcid) 20 mg PO DAILY [facility] Last Admin: 06/05/16 10:52 Dose: Not Given Finasteride (Proscar) 5 mg PO DAILY [facility] Last Admin: 06/04/16 10:19 Dose: 5 mg Sodium Chloride (Sodium Chloride 0.9%) 1,000 mls @ 75 mls/hr IV .[id number] [facility] Lactulose (Enulose) 20 gm PO BID [facility] Last Admin: 06/05/16 10:53 Dose: Not Given Oxycodone/Acetaminophen (Percocet 5/325 Mg Tab) 2 tab PO Q4H PRN PRN Reason: severe pain Stop: 06/07/16 19:43 Last Admin: 06/04/16 20:13 Dose: 2 tab Pantoprazole Sodium (Protonix Inj) 40 mg IVP DAILY [facility] Last Admin: 06/05/16 10:52 Dose: Not Given Fluticasone/Salmeterol (Advair Diskus 100/50) 1 puff INH RQ12 [facility] Last Admin: 06/04/16 19:36 Dose: 1 puff Tamsulosin HCl (Flomax) 0.4 mg PO DAILY [facility] Last Admin: 06/05/16 10:52 Dose: Not Given Tramadol HCl (Ultram) 25 mg PO Q6 PRN PRN Reason: Pain, moderate (4-7) - Labs Labs: 06/05/16 08:30 06/05/16 08:30 PT 14.6 SECONDS (9.7-12.2) H 05/30/16 06:59 INR 1.3 05/30/16 06:59 APTT 31 SECONDS (21-34) 05/30/16 06:59 - Constitutional Appears: Non-toxic, No Acute Distress - Head Exam Head Exam: ATRAUMATIC, NORMAL INSPECTION - Eye Exam Eye Exam: EOMI, Normal appearance, PERRL Pupil Exam: NORMAL ACCOMODATION - Respiratory Exam Respiratory Exam: Clear to Ausculation Bilateral, NORMAL BREATHING PATTERN. absent: Respiratory Distress - Cardiovascular Exam Cardiovascular Exam: REGULAR RHYTHM, +S1, +S2 - GI/Abdominal Exam GI & Abdominal Exam: Soft, Tenderness, Normal Bowel Sounds. absent: Distended, Firm, Guarding - Extremities Exam Extremities Exam: Normal Inspection. absent: Calf Tenderness, Pedal Edema - Back Exam Back Exam: NORMAL INSPECTION. absent: CVA tenderness (L), CVA tenderness (R), paraspinal tenderness - Neurological Exam Neurological Exam: Alert, Awake, CN II-XII Intact, Oriented x3 - Psychiatric Exam Psychiatric exam: Normal Affect, Normal Mood - Skin Skin Exam: Dry, Intact, Normal Color, Warm Additional comments: NF skin changes Assessment and Plan - Assessment and Plan (Free Text) Assessment: Rectal mass/prolapse Surgical plans per Dr Larson - Pt had a partial protectomy procedure on . Management/pain management as per primary surgical team. Ultram 25 mg PO Q6 prn pain Percocet 2 tab PO Q4 prn pain Patient has low cardiac risk (0.4%) for non-cardiac procedure; also, despite asthma and severe scoliosis history, ABG is relatively re-assuring with close to normal PO2 and no hypercapnea. Pathology: Rectal adenocarcinoma Rad onc consulted. -For rectal staging to have an EUS (if feasible) or MRI of the pelvis to determine the T-stage and whether there are regional nodes. GI consult - Dr. Link -Biopsy shows adenocarcinoma with mucinous component. f.u EGD today -follow up with GI on 06/05 CT Abd/Pel: 7.5mm low-attenuation lesion at the anterior aspect of the left liver lobe, not clearly seen in the previous exam. Urinary retention Piña in place - clear yellow Pt with hx of BPH states he used to be on meds to help but hasn't taken in two years Patient was complaining of burning sensation related to piña catheter; nursing staff was asked to change catheter; otherwise, patient placed on flomax and finasteride for urinary retention; can give voiding trial in a few days; Dr. Alfredo Panda consulted, help appreciated - f/u recs -patient can be discharged with piña and leg bag with outpatient f/u; HTN [id number] PO daily Monitor and adjust if needed. Asthma Duoneb RQ8 [facility] Consider inhaled steroid as patient was using his albuterol pump frequently at home Started on advair due to inhaler use consistent with persistent asthma. Hypokalemia 06/03 resolved K = 3.2 Kdur 40 mew x 1 dose f/u am labs and Mg level Levoscoliosis Pulm Dr. Velazquez consulted - help appreciated ABG is relatively re-assuring with close to normal PO2 and no hypercapnea. Patient is a moderate risk for surgery due to severe levoscoliotic curve. NS at 75 cc/hour Will follow up EGD results <Eb Mcknight - Last Filed: 06/05/16 20:40> Objective - Vital Signs/Intake and Output Vital Signs (last 24 hours): Temp Pulse Resp BP Pulse Ox 98.2 F 88 20 123/81 97 06/05/16 18:06 06/05/16 18:06 06/05/16 18:06 06/05/16 18:06 06/05/16 18:06 Intake and Output: 06/05/16 06/06/16 18:59 06:59 Intake Total 100 Balance 100 - Medications Medications: Current Medications Albuterol/Ipratropium (Duoneb 3 Mg/0.5 Mg (3 Ml) Ud) 3 ml INH RQ8 [facility] Last Admin: 06/05/16 15:57 Dose: Not Given Docusate Sodium (Colace) 100 mg PO BID [facility] Last Admin: 06/05/16 17:38 Dose: 100 mg Enalapril Maleate (Vasotec) 5 mg PO DAILY [facility] Last Admin: 06/05/16 10:52 Dose: Not Given Famotidine (Pepcid) 20 mg PO DAILY [facility] Last Admin: 06/05/16 10:52 Dose: Not Given Finasteride (Proscar) 5 mg PO DAILY [facility] Last Admin: 06/05/16 10:00 Dose: Not Given Sodium Chloride (Sodium Chloride 0.9%) 1,000 mls @ 75 mls/hr IV .[id number] [facility] Lactulose (Enulose) 20 gm PO BID [facility] Last Admin: 06/05/16 17:38 Dose: 20 gm Oxycodone/Acetaminophen (Percocet 5/325 Mg Tab) 2 tab PO Q4H PRN PRN Reason: severe pain Stop: 06/07/16 19:43 Last Admin: 06/04/16 20:13 Dose: 2 tab Pantoprazole Sodium (Protonix Inj) 40 mg IVP DAILY [facility] Last Admin: 06/05/16 10:52 Dose: Not Given Fluticasone/Salmeterol (Advair Diskus 100/50) 1 puff INH RQ12 [facility] Last Admin: 06/04/16 19:36 Dose: 1 puff Tamsulosin HCl (Flomax) 0.4 mg PO DAILY [facility] Last Admin: 06/05/16 10:52 Dose: Not Given Tramadol HCl (Ultram) 25 mg PO Q6 PRN PRN Reason: Pain, moderate (4-7) - Labs Labs: 06/05/16 08:30 06/05/16 08:30 PT 14.6 SECONDS (9.7-12.2) H 05/30/16 06:59 INR 1.3 05/30/16 06:59 APTT 31 SECONDS (21-34) 05/30/16 06:59 Attending/Attestation - Attestation I have personally seen and examined this patient.: Yes I have fully participated in the care of the patient.: Yes I have reviewed all pertinent clinical information, including history, physical exam and plan: Yes Notes (Text): Patient with htn, asthma/COPD admitted with rectal prolapse to surgery service, underwent proctectomy; rectal mass biopsy showing mucinous adenocarcinoma; medicine service consulted for co-management; Patient underwent EGD today due to pathology suggesting to r/o primary gastric malignancy; awaiting results; MRI pelvis ordered by radiation onc to assess for mets; No breathing complaints; started on advair, continue; HTN controlled; Urinary retention; piña in place; started on flomax and finasteride on 06/02; will attempt voiding trial tomorrow; Labs today showing mild hyponatremia, BUN elevated, possibly indicative of volume depletion; started on NS at 75 cc/hr. 06/05/16 20:34
[2016-06-05] MEDS ORDERED: Lactated Ringer's 500 ML IV ONE (14:57)
[2016-06-05] MEDS ORDERED: Propofol 10 mg/ml Inj (20 ML) ONE (15:11)
[2016-06-05] MEDS ORDERED: Lidocaine Hydrochloride 5 ML INJ ONE (15:11)
[2016-06-05] MEDS ORDERED: Midazolam 2 MG/2 ML VIAL ONE (15:11)
[2016-06-06 07:13] LABS: BASO % 0.6 % (0.0-2.0); EOS # 0.1 K/uL (0.0-0.7); EOS % 0.9 % (0.0-4.0); HEMATOCRIT 39.5 % (35.0-51.0); LYMPH # 1.4 K/uL (1.0-4.3); LYMPH % 17.3 % (20.0-40.0); MEAN CELL VOLUME 88.7 fL (80.0-94.0); MEAN CORPUSCULAR HEMOGLOBIN 30.2 pg (27.0-31.0); MEAN PLATELET VOLUME 6.7 fL (7.2-11.7); MONO # 0.7 K/uL (0.0-0.8); RED CELL DISTRIBUTION WIDTH 12.8 % (11.5-14.5); WHITE BLOOD COUNT 8.1 K/uL (4.8-10.8)
[2016-06-06 07:26] LABS: CHLORIDE 90 mmol/L (98-107)
[2016-06-06 07:27] LABS: POTASSIUM 3.9 mmol/L (3.6-5.2); SODIUM 130 mmol/L (132-148)
[2016-06-06 07:29] LABS: ALB/GLOB RATIO 1.2 (1.0-2.1); ALKALINE PHOSPHATASE 58 U/L (38-126); ALT/SGPT 21 U/L (21-72); AST/SGOT 20 U/L (17-59); BILIRUBIN,TOTAL 0.9 mg/dL (0.2-1.3); BLOOD UREA NITROGEN 13 mg/dL (9-20); CARBON DIOXIDE 28 mmol/L (22-30); GFR AFRICAN-AMERICAN > 60; GLUCOSE,RANDOM 84 mg/dL (75-110); TOTAL PROTEIN 6.6 g/dL (6.3-8.3)
[2016-06-06 07:30] LABS: CALCIUM 8.3 mg/dl (8.6-10.4); MAGNESIUM 1.9 mg/dL (1.6-2.3); PHOSPHOROUS 3.1 mg/dL (2.5-4.5)
--- NOTE | 2016-06-06 07:50 | CP.PCM.PN ---
<Briseyda Murphy - Last Filed: 06/06/16 12:30> Subjective - Date & Time of Evaluation Date of Evaluation: 06/06/16 Time of Evaluation: 07:00 - Subjective Subjective: PGY [address] Mcknight Patient seen and examined at bedside. No overnight events as per nursing. Patient is s/p partial protectomy with anastomosis and rectal polypectomy with biopsy of anal tumor POD 9. He also had an EGD yesterday. He denies fever, chills, chest pain, difficulty breathing, palpitations, abdominal pain, N/v. he is tolerating diet, Still reports a small amount of blood per rectum which has greaylt improved after his surgery. Objective - Vital Signs/Intake and Output Vital Signs (last 24 hours): Temp Pulse Resp BP Pulse Ox 97.9 F 95 H 18 155/88 H 96 06/05/16 23:34 06/05/16 23:34 06/05/16 23:34 06/05/16 23:34 06/05/16 23:34 Intake and Output: 06/06/16 06/06/16 06:59 18:59 Output Total 1400 Balance -1400 - Medications Medications: Current Medications Albuterol/Ipratropium (Duoneb 3 Mg/0.5 Mg (3 Ml) Ud) 3 ml INH RQ8 [facility] Last Admin: 06/05/16 23:28 Dose: Not Given Docusate Sodium (Colace) 100 mg PO BID [facility] Last Admin: 06/05/16 17:38 Dose: 100 mg Enalapril Maleate (Vasotec) 5 mg PO DAILY [facility] Last Admin: 06/05/16 10:52 Dose: Not Given Famotidine (Pepcid) 20 mg PO DAILY [facility] Last Admin: 06/05/16 10:52 Dose: Not Given Finasteride (Proscar) 5 mg PO DAILY [facility] Last Admin: 06/05/16 10:00 Dose: Not Given Sodium Chloride (Sodium Chloride 0.9%) 1,000 mls @ 75 mls/hr IV .[id number] [facility] Lactulose (Enulose) 20 gm PO BID [facility] Last Admin: 06/05/16 17:38 Dose: 20 gm Oxycodone/Acetaminophen (Percocet 5/325 Mg Tab) 2 tab PO Q4H PRN PRN Reason: severe pain Stop: 06/07/16 19:43 Last Admin: 06/04/16 20:13 Dose: 2 tab Pantoprazole Sodium (Protonix Inj) 40 mg IVP DAILY [facility] Last Admin: 06/05/16 10:52 Dose: Not Given Fluticasone/Salmeterol (Advair Diskus 100/50) 1 puff INH RQ12 [facility] Last Admin: 06/04/16 19:36 Dose: 1 puff Tamsulosin HCl (Flomax) 0.4 mg PO DAILY [facility] Last Admin: 06/05/16 10:52 Dose: Not Given Tramadol HCl (Ultram) 25 mg PO Q6 PRN PRN Reason: Pain, moderate (4-7) - Labs Labs: 06/06/16 07:01 06/06/16 07:01 PT 14.6 SECONDS (9.7-12.2) H 05/30/16 06:59 INR 1.3 05/30/16 06:59 APTT 31 SECONDS (21-34) 05/30/16 06:59 - Constitutional Appears: Non-toxic, No Acute Distress - Head Exam Head Exam: ATRAUMATIC, NORMAL INSPECTION - Eye Exam Eye Exam: EOMI - ENT Exam ENT Exam: Mucous Membranes Moist - Respiratory Exam Respiratory Exam: Clear to Ausculation Bilateral, NORMAL BREATHING PATTERN. absent: Rales, Rhonchi, Wheezes Additional comments: Scolosis - Cardiovascular Exam Cardiovascular Exam: REGULAR RHYTHM, +S1, +S2 - GI/Abdominal Exam GI & Abdominal Exam: Soft, Tenderness, Normal Bowel Sounds. absent: Distended, Firm, Guarding - Extremities Exam Extremities Exam: Full ROM, Normal Inspection. absent: Calf Tenderness, Pedal Edema - Back Exam Back Exam: absent: CVA tenderness (L), CVA tenderness (R), paraspinal tenderness Additional comments: scolosis - Neurological Exam Neurological Exam: Alert, Awake, Oriented x3 - Psychiatric Exam Psychiatric exam: Normal Affect, Normal Mood - Skin Skin Exam: Dry, Intact, Normal Color, Warm Additional comments: Neurofibratomas changes Assessment and Plan - Assessment and Plan (Free Text) Assessment: Rectal mass/prolapse Surgical plans per Dr Larson - Pt had a partial protectomy procedure on . Management/pain management as per primary surgical team. Ultram 25 mg PO Q6 prn pain Percocet 2 tab PO Q4 prn pain Patient has low cardiac risk (0.4%) for non-cardiac procedure; also, despite asthma and severe scoliosis history, ABG is relatively re-assuring with close to normal PO2 and no hypercapnea. Pathology: Rectal adenocarcinoma Rad onc consulted. -For rectal staging to have an EUS (if feasible) or MRI of the pelvis to determine the T-stage and whether there are regional nodes. GI consult - Dr. Link -Biopsy shows adenocarcinoma with mucinous component. For possible conlonscopy - EGD - normal CT Abd/Pel: 7.5mm low-attenuation lesion at the anterior aspect of the left liver lobe, not clearly seen in the previous exam. Urinary retention Will discontinue today and try voiding trial. Will recheck with bladder scan. Piña in place - clear yellow Pt with hx of BPH states he used to be on meds to help but hasn't taken in two years Patient was complaining of burning sensation related to piña catheter; nursing staff was asked to change catheter; otherwise, patient placed on flomax and finasteride for urinary retention; can give voiding trial in a few days; Dr. Alfredo Panda consulted, help appreciated - f/u recs -patient can be discharged with piña and leg bag with outpatient f/u; HTN [id number] PO daily Monitor and adjust if needed. Asthma Duoneb RQ8 [facility] Consider inhaled steroid as patient was using his albuterol pump frequently at home Started on advair due to inhaler use consistent with persistent asthma. Hypokalemia 06/03 resolved K = 3.2 Kdur 40 mew x 1 dose f/u am labs and Mg level Levoscoliosis Pulm Dr. Velazquez consulted - help appreciated ABG is relatively re-assuring with close to normal PO2 and no hypercapnea. Patient is a moderate risk for surgery due to severe levoscoliotic curve. NS at 75 cc/hour Will follow up EGD results <Eb Mcknight - Last Filed: 06/27/16 22:31> Objective - Vital Signs/Intake and Output Vital Signs (last 24 hours): Temp Pulse Resp BP Pulse Ox 97.6 F 92 H 20 164/91 H 98 06/16/16 15:21 06/16/16 22:45 06/16/16 15:21 06/16/16 15:21 06/16/16 15:21 - Labs Labs: 06/12/16 07:01 06/12/16 07:01 PT 12.6 SECONDS (9.7-12.2) H 06/12/16 07:01 INR 1.1 06/12/16 07:01 APTT 30 SECONDS (21-34) 06/12/16 07:01 Attending/Attestation - Attestation I have personally seen and examined this patient.: Yes I have fully participated in the care of the patient.: Yes I have reviewed all pertinent clinical information, including history, physical exam and plan: Yes
[2016-06-06] MEDS: Fluticasone-Salmeterol 100-50mcg Diskus INH SCH (07:52)
[2016-06-06] MEDS: Albuterol-Ipratrop 3 mg / 0.5 (3 ml) UD INH SCH ×3 (07:53→23:39)
--- NOTE | 2016-06-06 08:32 | CP.PCM.PN ---
Subjective - Date & Time of Evaluation Date of Evaluation: 06/06/16 Time of Evaluation: 08:00 - Subjective Subjective: F/U anal cancer EGD shows no gastric tumor. Pt reports lower abdom pain. Denies fever, chills, SZ, CP, SOB, cough, melena, dysphagia, hemoptysis Objective - Vital Signs/Intake and Output Vital Signs (last 24 hours): Temp Pulse Resp BP Pulse Ox 97.9 F 100 H 20 133/82 95 06/06/16 07:00 06/06/16 08:02 06/06/16 07:00 06/06/16 07:00 06/06/16 07:00 Intake and Output: 06/06/16 06/06/16 06:59 18:59 Intake Total 200 Output Total 1400 Balance -1400 200 - Medications Medications: Current Medications Albuterol/Ipratropium (Duoneb 3 Mg/0.5 Mg (3 Ml) Ud) 3 ml INH RQ8 [facility] Last Admin: 06/06/16 07:53 Dose: 3 ml Docusate Sodium (Colace) 100 mg PO BID [facility] Last Admin: 06/05/16 17:38 Dose: 100 mg Enalapril Maleate (Vasotec) 5 mg PO DAILY [facility] Last Admin: 06/05/16 10:52 Dose: Not Given Famotidine (Pepcid) 20 mg PO DAILY [facility] Last Admin: 06/05/16 10:52 Dose: Not Given Finasteride (Proscar) 5 mg PO DAILY [facility] Last Admin: 06/05/16 10:00 Dose: Not Given Sodium Chloride (Sodium Chloride 0.9%) 1,000 mls @ 75 mls/hr IV .[id number] [facility] Lactulose (Enulose) 20 gm PO BID [facility] Last Admin: 06/05/16 17:38 Dose: 20 gm Oxycodone/Acetaminophen (Percocet 5/325 Mg Tab) 2 tab PO Q4H PRN PRN Reason: severe pain Stop: 06/07/16 19:43 Last Admin: 06/04/16 20:13 Dose: 2 tab Pantoprazole Sodium (Protonix Inj) 40 mg IVP DAILY [facility] Last Admin: 06/05/16 10:52 Dose: Not Given Fluticasone/Salmeterol (Advair Diskus 100/50) 1 puff INH RQ12 [facility] Last Admin: 06/06/16 07:52 Dose: Not Given Tamsulosin HCl (Flomax) 0.4 mg PO DAILY [facility] Last Admin: 06/05/16 10:52 Dose: Not Given Tramadol HCl (Ultram) 25 mg PO Q6 PRN PRN Reason: Pain, moderate (4-7) - Labs Labs: 06/06/16 07:01 06/06/16 07:01 PT 14.6 SECONDS (9.7-12.2) H 05/30/16 06:59 INR 1.3 05/30/16 06:59 APTT 31 SECONDS (21-34) 05/30/16 06:59 - Constitutional Appears: Non-toxic - Respiratory Exam Respiratory Exam: Clear to Ausculation Bilateral - Cardiovascular Exam Cardiovascular Exam: RRR - GI/Abdominal Exam GI & Abdominal Exam: Soft, Tenderness, Normal Bowel Sounds - Neurological Exam Neurological Exam: Alert, Oriented x3 Assessment and Plan (1) Mass in rectum Assessment & Plan: Biopsy adenoCA. EGD is negative. Case was discussed with Dr Perez yesterday. Further recommendations as per dr Perez Status: Acute (2) Thrombosed external hemorrhoid Status: Acute (3) Rectal prolapse Status: Acute
--- NOTE | 2016-06-06 09:23 | PCM.URO ---
Urology Progress Note - Objective Lab Results Last 24 Hours: Laboratory Results - last 24 hr 06/06/16 07:01 WBC 8.1 RBC 4.45 Hgb 13.4 Hct 39.5 MCV 88.7 MCH 30.2 MCHC 34.0 RDW 12.8 Plt Count 370 MPV 6.7 L Neut % (Auto) 72.2 Lymph % (Auto) 17.3 L Coffee % (Auto) 9.0 Eos % (Auto) 0.9 Baso % (Auto) 0.6 Neut # 5.8 Lymph # 1.4 Coffee # 0.7 Eos # 0.1 Baso # 0.0 Sodium 130 L Potassium 3.9 Chloride 90 L Carbon Dioxide 28 Anion Gap 16 BUN 13 Creatinine 0.7 L Est GFR ( Amer) > 60 Est GFR (Non-Af Amer) > 60 Random Glucose 84 Calcium 8.3 L Phosphorus 3.1 Magnesium 1.9 Total Bilirubin 0.9 AST 20 ALT 21 Alkaline Phosphatase 58 Total Protein 6.6 Albumin 3.6 Globulin 3.0 Albumin/Globulin Ratio 1.2 Intake & Output: Intake & Output 06/05/16 06/06/16 06/06/16 18:59 06:59 18:59 Intake Total 100 200 Output Total 1400 Balance 100 -1400 200 Intake: Oral 100 200 Output: Urine 1400 Urethral (Gonzalez) 1400 Other: # Bowel Movements 2 1 Vital Signs: Vital Signs - 24 hr 06/05/16 06/05/16 06/05/16 14:58 15:28 15:43 Temperature 98.6 F Pulse Rate 92 H 100 H 99 H Respiratory 20 25 H 21 Rate Blood Pressure 131/82 116/77 123/87 O2 Sat by Pulse 97 99 99 Oximetry 06/05/16 06/05/16 06/05/16 15:58 18:06 23:34 Temperature 98.2 F 97.9 F Pulse Rate 100 H 88 95 H Respiratory 20 20 18 Rate Blood Pressure 131/92 H 123/81 155/88 H O2 Sat by Pulse 100 97 96 Oximetry 06/06/16 06/06/16 07:00 08:02 Temperature 97.9 F Pulse Rate 96 H 100 H Respiratory 20 Rate Blood Pressure 133/82 O2 Sat by Pulse 95 Oximetry
[2016-06-06] MEDS: Tramadol 25 mg PO PRN (15:20)
[2016-06-06] MEDS: Sodium Chloride 0.9% 1,000 ML IV SCH (15:53)
[2016-06-06] MEDS ORDERED: Peg-Electrolyte Oral Soln 4L (Golytely) PO ONE (17:00)
[2016-06-07] MEDS: Sodium Chloride 0.9% 1,000 ML IV SCH ×3 (04:15→21:01)
[2016-06-07 07:02] LABS: CHLORIDE 94 mmol/L (98-107)
[2016-06-07 07:03] LABS: POTASSIUM 3.4 mmol/L (3.6-5.2); SODIUM 133 mmol/L (132-148)
[2016-06-07 07:05] LABS: ALB/GLOB RATIO 1.2 (1.0-2.1); ALKALINE PHOSPHATASE 57 U/L (38-126); AST/SGOT 18 U/L (17-59); BILIRUBIN,TOTAL 0.9 mg/dL (0.2-1.3); BLOOD UREA NITROGEN 11 mg/dL (9-20); CARBON DIOXIDE 27 mmol/L (22-30); GFR AFRICAN-AMERICAN > 60; GLUCOSE,RANDOM 86 mg/dL (75-110); TOTAL PROTEIN 6.1 g/dL (6.3-8.3)
[2016-06-07 07:06] LABS: ALT/SGPT 23 U/L (21-72); CALCIUM 7.9 mg/dl (8.6-10.4); MAGNESIUM 1.8 mg/dL (1.6-2.3); PHOSPHOROUS 3.3 mg/dL (2.5-4.5)
[2016-06-07 07:09] LABS: BASO # 0.1 K/uL (0.0-0.2); BASO % 0.8 % (0.0-2.0); EOS # 0.1 K/uL (0.0-0.7); EOS % 1.3 % (0.0-4.0); HEMATOCRIT 37.8 % (35.0-51.0); LYMPH # 1.4 K/uL (1.0-4.3); LYMPH % 20.4 % (20.0-40.0); MEAN CELL VOLUME 88.6 fL (80.0-94.0); MEAN CORPUSCULAR HEMOGLOBIN 29.9 pg (27.0-31.0); MEAN CORPUSCULAR HGB CONC 33.8 g/dL (33.0-37.0); MEAN PLATELET VOLUME 6.4 fL (7.2-11.7); MONO # 0.7 K/uL (0.0-0.8); MONO % 10.6 % (0.0-10.0); RED CELL DISTRIBUTION WIDTH 12.9 % (11.5-14.5)
[2016-06-07] MEDS: Albuterol-Ipratrop 3 mg / 0.5 (3 ml) UD INH SCH ×2 (07:29→16:39)
[2016-06-07] MEDS: Fluticasone-Salmeterol 100-50mcg Diskus INH SCH (07:29)
--- NOTE | 2016-06-07 09:37 | PN ---
DATE: 06/06/2016 HEMATOLOGY/ONCOLOGY FOLLOWUP REASON FOR FOLLOWUP: Adenocarcinoma of the rectus/anal biopsy. SUBJECTIVE: The patient underwent a biopsy of the distal portion of the rectum and also an anal biop sy which showed a portion of the squamous mucosa with involvement by adenocarcinoma, a mucinous carci noma. It was suggested to rule out any gastric primary. The patient underwent an EGD which did not show any gastric tumor and is scheduled for a colonoscopy tomorrow. Subjectively denies any complain ts. OBJECTIVE: VITAL SIGNS: Show temperature of 98, blood pressure 133/82, pulse 100, respirations 18. HEENT: PERRLA. No scleral icterus. NECK: Supple. CHEST: Bilateral air entry is fair. CVS: S1 and S2, regular rate and rhythm. ABDOMEN: Soft, nondistended. ASSESSMENT AND PLAN: Adenocarcinoma. He notes gastrectomy biopsy. The patient will need a colonosco py to assess where the adenocarcinoma is coming from. The case was discussed with Dr. Mandujano. The pa micaela will be scheduled for colonoscopy tomorrow. Once that is done a Port-A-Cath will be placed. Jerry sanderson will speak with Dr. Larson. The case has been discussed with him for further management purposes . Thank you for this consult. We will follow the patient with you. Ester Perez MD cc: [id number] TT: 06/06/2016 15:43:03 Confirmation # [id number] Dictation # [id number] an
[2016-06-07] MEDS ORDERED: Lactated Ringer's 500 ML IV ONE ×2 (10:33)
[2016-06-07] MEDS ORDERED: Propofol 10 mg/ml Inj (20 ML) ONE ×2 (11:07→11:11)
--- NOTE | 2016-06-07 11:20 | PN ---
DATE: 06/07/2016 REASON FOR FOLLOWUP: Adenocarcinoma of the rectum and anal biopsy. SUBJECTIVE: The patient is status post diagnosis of adenocarcinoma of the anal biopsy which showed a portion of the squamous mucosa with involvement of adenocarcinoma, mucinous carcinoma, is scheduled for colonoscopy today. Awaiting results of the same. OBJECTIVE: VITAL SIGNS: Temperature is 98.2, blood pressure is 130/76, pulse 100, respirations 18. HEENT: PERRLA. No scleral icterus was seen. NECK: Supple. CHEST: Bilateral air entry is decreased. CARDIOVASCULAR: S1, S2, regular rate and rhythm. ABDOMEN: Soft. LABORATORY DATA: Show white count of 7, hemoglobin of 12.8 and platelets of 401. ASSESSMENT AND PLAN: A 60-year-old male with adenocarcinoma. Will await colonoscopy results. Once that is obtained, further recommendations regarding management will be made. The case was discussed with Dr. Mandujano and Dr. Larson. Ester Perez MD cc: [id number] TT: 06/07/2016 11:19:46 Confirmation # [id number] Dictation # [id number] madina
--- NOTE | 2016-06-07 11:33 | CP.PCM.PN ---
<Briseyda Murphy - Last Filed: 06/07/16 14:02> Subjective - Date & Time of Evaluation Date of Evaluation: 06/07/16 Time of Evaluation: 07:40 - Subjective Subjective: PGY [address] Mcknight Patient seen and examined at bedside. No overnight events as per nursing. Patient is s/p partial protectomy with anastomosis and rectal polypectomy with biopsy of anal tumor.He denies fever, chills, chest pain, difficulty breathing, palpitations, abdominal pain, N/v. he is tolerating diet, Still reports a small amount of blood per rectum. He is s/p colonoscopy today. Objective - Vital Signs/Intake and Output Vital Signs (last 24 hours): Temp Pulse Resp BP Pulse Ox 97.6 F 76 18 154/86 H 95 06/07/16 10:27 06/07/16 10:27 06/07/16 10:27 06/07/16 10:27 06/07/16 10:27 Intake and Output: 06/07/16 06/07/16 06:59 18:59 Intake Total 4770 Output Total 300 Balance 4470 - Medications Medications: Current Medications Albuterol/Ipratropium (Duoneb 3 Mg/0.5 Mg (3 Ml) Ud) 3 ml INH RQ8 [facility] Last Admin: 06/07/16 07:29 Dose: 3 ml Docusate Sodium (Colace) 100 mg PO BID [facility] Last Admin: 06/06/16 17:33 Dose: 100 mg Enalapril Maleate (Vasotec) 5 mg PO DAILY [facility] Last Admin: 06/06/16 10:28 Dose: 5 mg Famotidine (Pepcid) 20 mg PO DAILY [facility] Last Admin: 06/06/16 10:28 Dose: 20 mg Finasteride (Proscar) 5 mg PO DAILY [facility] Last Admin: 06/06/16 10:28 Dose: 5 mg Sodium Chloride (Sodium Chloride 0.9%) 1,000 mls @ 75 mls/hr IV .[id number] [facility] Last Admin: 06/07/16 06:15 Dose: 75 mls/hr Lactulose (Enulose) 20 gm PO BID [facility] Last Admin: 06/06/16 17:33 Dose: 20 gm Oxycodone/Acetaminophen (Percocet 5/325 Mg Tab) 2 tab PO Q4H PRN PRN Reason: severe pain Stop: 06/07/16 19:43 Last Admin: 06/04/16 20:13 Dose: 2 tab Fluticasone/Salmeterol (Advair Diskus 100/50) 1 puff INH RQ12 [facility] Last Admin: 06/07/16 07:29 Dose: Not Given Tamsulosin HCl (Flomax) 0.4 mg PO DAILY [facility] Last Admin: 06/06/16 10:28 Dose: 0.4 mg Tramadol HCl (Ultram) 25 mg PO Q6 PRN PRN Reason: Pain, moderate (4-7) Last Admin: 06/06/16 15:20 Dose: 25 mg - Labs Labs: 06/07/16 06:41 06/07/16 06:41 PT 14.6 SECONDS (9.7-12.2) H 05/30/16 06:59 INR 1.3 05/30/16 06:59 APTT 31 SECONDS (21-34) 05/30/16 06:59 - Constitutional Appears: Non-toxic, No Acute Distress - Head Exam Head Exam: ATRAUMATIC, NORMAL INSPECTION - Eye Exam Eye Exam: EOMI, Normal appearance, PERRL Pupil Exam: NORMAL ACCOMODATION - ENT Exam ENT Exam: Mucous Membranes Moist - Neck Exam Neck Exam: Normal Inspection - Respiratory Exam Respiratory Exam: Clear to Ausculation Bilateral, NORMAL BREATHING PATTERN. absent: Respiratory Distress - Cardiovascular Exam Cardiovascular Exam: REGULAR RHYTHM, +S1, +S2 - GI/Abdominal Exam GI & Abdominal Exam: Soft, Normal Bowel Sounds. absent: Distended, Firm, Guarding, Tenderness - Extremities Exam Extremities Exam: Normal Inspection. absent: Calf Tenderness, Pedal Edema - Back Exam Back Exam: NORMAL INSPECTION. absent: CVA tenderness (L), CVA tenderness (R), paraspinal tenderness Additional comments: scolosis - Neurological Exam Neurological Exam: Alert, Awake, Oriented x3 - Psychiatric Exam Psychiatric exam: Normal Affect, Normal Mood - Skin Skin Exam: Dry, Intact, Normal Color, Warm Additional comments: NF skin changes Assessment and Plan - Assessment and Plan (Free Text) Assessment: Rectal mass/prolapse For port a cath placement TBD Surgical plans per Dr Larson - Pt had a partial protectomy procedure on . Management/pain management as per primary surgical team. Ultram 25 mg PO Q6 prn pain Percocet 2 tab PO Q4 prn pain Patient has low cardiac risk (0.4%) for non-cardiac procedure; also, despite asthma and severe scoliosis history, ABG is relatively re-assuring with close to normal PO2 and no hypercapnea. Pathology: Rectal adenocarcinoma Rad onc consulted. -For rectal staging to have an EUS (if feasible) or MRI of the pelvis to determine the T-stage and whether there are regional nodes. GI consult - Dr. Link -Biopsy shows adenocarcinoma with mucinous component. For possible conlonscopy - EGD - normal - S/p colonoscopy today with cecum biopsy CT Abd/Pel: 7.5mm low-attenuation lesion at the anterior aspect of the left liver lobe, not clearly seen in the previous exam. Urinary retention Patient is voiding comfortably Piña discontinued. Bladder scan was 93 cc Pt with hx of BPH states he used to be on meds to help but hasn't taken in two years Patient was complaining of burning sensation related to piña catheter; nursing staff was asked to change catheter; otherwise, patient placed on flomax and finasteride for urinary retention; can give voiding trial in a few days; Dr. Alfredo Panda consulted, help appreciated - f/u recs -patient can be discharged with piña and leg bag with outpatient f/u; HTN Vasotec 5mg PO daily Monitor and adjust if needed. Asthma Duoneb RQ8 [facility] Consider inhaled steroid as patient was using his albuterol pump frequently at home Advair Hypokalemia K = 3.4 Kdur 40 meq x 1 dose f/u am labs and Mg level Levoscoliosis Pulm Dr. Velazquez consulted - help appreciated ABG is relatively re-assuring with close to normal PO2 and no hypercapnea. Patient is a moderate risk for surgery due to severe levoscoliotic curve. NS at 75 cc/hour <Eb Mcknight - Last Filed: 06/27/16 22:39> Objective - Vital Signs/Intake and Output Vital Signs (last 24 hours): Temp Pulse Resp BP Pulse Ox 97.6 F 92 H 20 164/91 H 98 06/16/16 15:21 06/16/16 22:45 06/16/16 15:21 06/16/16 15:21 06/16/16 15:21 - Labs Labs: 06/12/16 07:01 06/12/16 07:01 PT 12.6 SECONDS (9.7-12.2) H 06/12/16 07:01 INR 1.1 06/12/16 07:01 APTT 30 SECONDS (21-34) 06/12/16 07:01 Attending/Attestation - Attestation I have personally seen and examined this patient.: Yes I have fully participated in the care of the patient.: Yes I have reviewed all pertinent clinical information, including history, physical exam and plan: Yes
[2016-06-07] MEDS: Tramadol 25 mg PO PRN (13:33)
[2016-06-07] MEDS ORDERED: Potassium Chloride 20 mEq ER Tab PO ONE (14:00)
[2016-06-08] MEDS: Albuterol-Ipratrop 3 mg / 0.5 (3 ml) UD INH SCH ×3 (00:09→16:32)
[2016-06-08] MEDS: Fluticasone-Salmeterol 100-50mcg Diskus INH SCH ×2 (08:00→19:25)
--- NOTE | 2016-06-08 09:25 | CP.PCM.PN ---
<Briseyda Murphy - Last Filed: 06/08/16 12:08> Subjective - Date & Time of Evaluation Date of Evaluation: 06/08/16 Time of Evaluation: 07:30 - Subjective Subjective: PGY [address] Hopkins: Patient seen and examined at bedside. No overnight events as per nursing. Patient is s/p partial protectomy with anastomosis and rectal polypectomy with biopsy of anal tumor.He denies fever, chills, chest pain, difficulty breathing, palpitations, abdominal pain, N/v. he is tolerating diet, Still reports a small amount of blood per rectum still. Patient is for port a cath placement time/day TBD. Objective - Vital Signs/Intake and Output Vital Signs (last 24 hours): Temp Pulse Resp BP Pulse Ox 97.7 F 85 20 150/83 97 06/08/16 07:00 06/08/16 07:00 06/08/16 07:00 06/08/16 07:00 06/08/16 07:00 Intake and Output: 06/08/16 06/08/16 06:59 18:59 Intake Total 1300 Balance 1300 - Medications Medications: Current Medications Albuterol/Ipratropium (Duoneb 3 Mg/0.5 Mg (3 Ml) Ud) 3 ml INH RQ8 [facility] Last Admin: 06/08/16 00:09 Dose: Not Given Docusate Sodium (Colace) 100 mg PO BID [facility] Last Admin: 06/07/16 17:14 Dose: 100 mg Enalapril Maleate (Vasotec) 5 mg PO DAILY [facility] Last Admin: 06/07/16 13:35 Dose: 5 mg Famotidine (Pepcid) 20 mg PO DAILY [facility] Last Admin: 06/07/16 13:32 Dose: 20 mg Finasteride (Proscar) 5 mg PO DAILY [facility] Last Admin: 06/07/16 13:32 Dose: 5 mg Sodium Chloride (Sodium Chloride 0.9%) 1,000 mls @ 75 mls/hr IV .[id number] [facility] Last Admin: 06/07/16 21:01 Dose: 75 mls/hr Lactulose (Enulose) 20 gm PO BID [facility] Last Admin: 06/07/16 17:14 Dose: 20 gm Fluticasone/Salmeterol (Advair Diskus 100/50) 1 puff INH RQ12 [facility] Last Admin: 06/07/16 07:29 Dose: Not Given Tamsulosin HCl (Flomax) 0.4 mg PO DAILY [facility] Last Admin: 06/07/16 13:35 Dose: 0.4 mg Tramadol HCl (Ultram) 25 mg PO Q6 PRN PRN Reason: Pain, moderate (4-7) Last Admin: 06/07/16 13:33 Dose: 25 mg - Labs Labs: 06/07/16 06:41 06/07/16 06:41 PT 14.6 SECONDS (9.7-12.2) H 05/30/16 06:59 INR 1.3 05/30/16 06:59 APTT 31 SECONDS (21-34) 05/30/16 06:59 - Constitutional Appears: Non-toxic, No Acute Distress - Head Exam Head Exam: ATRAUMATIC, NORMAL INSPECTION - Eye Exam Eye Exam: EOMI, Normal appearance, PERRL Pupil Exam: NORMAL ACCOMODATION - ENT Exam ENT Exam: Mucous Membranes Moist - Respiratory Exam Respiratory Exam: Clear to Ausculation Bilateral, NORMAL BREATHING PATTERN. absent: Accessory Muscle Use, Chest Wall Tenderness, Respiratory Distress - Cardiovascular Exam Cardiovascular Exam: REGULAR RHYTHM. absent: +S1, +S2 - GI/Abdominal Exam GI & Abdominal Exam: Soft, Normal Bowel Sounds. absent: Distended, Firm, Guarding, Tenderness - Extremities Exam Extremities Exam: Normal Inspection - Back Exam Back Exam: absent: CVA tenderness (L), CVA tenderness (R), paraspinal tenderness Additional comments: scolosis - Neurological Exam Neurological Exam: Alert, Awake, CN II-XII Intact, Oriented x3 Neuro motor strength exam: Left Upper Extremity: 5, Right Upper Extremity: 5, Left Lower Extremity: 5, Right Lower Extremity: 5 - Psychiatric Exam Psychiatric exam: Normal Affect, Normal Mood - Skin Skin Exam: Dry, Intact, Normal Color, Warm Additional comments: NF skin changes Assessment and Plan - Assessment and Plan (Free Text) Assessment: Rectal mass/prolapse For port a cath placement today Surgical plans per Dr Larson - Pt had a partial protectomy procedure on . Management/pain management as per primary surgical team. Ultram 25 mg PO Q6 prn pain Percocet 2 tab PO Q4 prn pain Patient has low cardiac risk (0.4%) for non-cardiac procedure; also, despite asthma and severe scoliosis history, ABG is relatively re-assuring with close to normal PO2 and no hypercapnea. Pathology: Rectal adenocarcinoma Rad onc consulted. -For rectal staging to have an EUS (if feasible) or MRI of the pelvis to determine the T-stage and whether there are regional nodes. GI consult - Dr. Link -Biopsy shows adenocarcinoma with mucinous component. For possible colonoscopy - EGD - normal - S/p colonoscopy today with cecum biopsy CT Abd/Pel: 7.5mm low-attenuation lesion at the anterior aspect of the left liver lobe, not clearly seen in the previous exam. Urinary retention Resolved:Patient is voiding comfortably Finesteride 5mg PO daily Flomax 0.4 mg PO daily Piña discontinued. Bladder scan was 93 cc Pt with hx of BPH states he used to be on meds to help but hasn't taken in two years Patient was complaining of burning sensation related to piña catheter; nursing staff was asked to change catheter; otherwise, patient placed on flomax and finasteride for urinary retention; can give voiding trial in a few days; Dr. Alfredo Panda consulted, help appreciated - f/u recs -patient can be discharged with piña and leg bag with outpatient f/u; HTN Vasotec 5mg PO daily Monitor and adjust if needed. Asthma Duoneb RQ8 [facility] Advair 100/[address] Velazquez consulted - help appreciated ABG is relatively re-assuring with close to normal PO2 and no hypercapnea. Patient is a moderate risk for surgery due to severe levoscoliotic curve. NS at 75 cc/hour <Theo Hopkins - Last Filed: 06/08/16 17:58> Objective - Vital Signs/Intake and Output Vital Signs (last 24 hours): Temp Pulse Resp BP Pulse Ox 97.7 F 99 H 20 157/85 H 97 06/08/16 16:30 06/08/16 16:30 06/08/16 16:30 06/08/16 16:30 06/08/16 16:30 Intake and Output: 06/08/16 06/08/16 06:59 18:59 Intake Total 1300 700 Balance 1300 700 - Medications Medications: Current Medications Albuterol/Ipratropium (Duoneb 3 Mg/0.5 Mg (3 Ml) Ud) 3 ml INH RQ8 [facility] Last Admin: 06/08/16 16:32 Dose: 3 ml Docusate Sodium (Colace) 100 mg PO BID [facility] Last Admin: 06/08/16 17:24 Dose: 100 mg Enalapril Maleate (Vasotec) 5 mg PO DAILY [facility] Last Admin: 06/08/16 12:05 Dose: Not Given Famotidine (Pepcid) 20 mg PO DAILY [facility] Last Admin: 06/08/16 12:05 Dose: Not Given Finasteride (Proscar) 5 mg PO DAILY [facility] Last Admin: 06/08/16 12:05 Dose: Not Given Sodium Chloride (Sodium Chloride 0.9%) 1,000 mls @ 75 mls/hr IV .[id number] [facility] Last Admin: 06/07/16 21:01 Dose: 75 mls/hr Lactulose (Enulose) 20 gm PO BID [facility] Last Admin: 06/08/16 17:24 Dose: 20 gm Fluticasone/Salmeterol (Advair Diskus 100/50) 1 puff INH RQ12 [facility] Last Admin: 06/08/16 08:00 Dose: Not Given Tamsulosin HCl (Flomax) 0.4 mg PO DAILY [facility] Last Admin: 06/08/16 12:05 Dose: Not Given Tramadol HCl (Ultram) 25 mg PO Q6 PRN PRN Reason: Pain, moderate (4-7) Last Admin: 06/07/16 13:33 Dose: 25 mg - Labs Labs: 06/08/16 11:57 06/08/16 11:57 PT 14.6 SECONDS (9.7-12.2) H 05/30/16 06:59 INR 1.3 05/30/16 06:59 APTT 31 SECONDS (21-34) 05/30/16 06:59 Attending/Attestation - Attestation I have personally seen and examined this patient.: Yes I have fully participated in the care of the patient.: Yes I have reviewed all pertinent clinical information, including history, physical exam and plan: Yes Notes (Text): 06/08/16 17:57 patient was seen and examined at bedside with rest and Patient is a new complaints Denies any rectal bleeding at this time plan for Port-A-Cath placement today Postop management as per primary surgical team. Patient will need follow-up as outpatient with oncology.
--- NOTE | 2016-06-08 10:59 | CP.PCM.PN ---
Subjective - Date & Time of Evaluation Date of Evaluation: 06/08/16 Time of Evaluation: 10:00 - Subjective Subjective: Mr Casper Orellana has a newly diagnosed low lying rectal cancer. He had a colonoscopy yesterday. I spoke with Dr Mandujano who performed a colonoscopy yesterday. He agreed that an evaluation by Dr Louis would be prudent for EUS for staging as this would impact our recommendation for chemoradiation Objective - Vital Signs/Intake and Output Vital Signs (last 24 hours): Temp Pulse Resp BP Pulse Ox 97.7 F 85 20 150/83 97 06/08/16 07:00 06/08/16 07:00 06/08/16 07:00 06/08/16 07:00 06/08/16 07:00 Intake and Output: 06/08/16 06/08/16 06:59 18:59 Intake Total 1300 Balance 1300 - Medications Medications: Current Medications Albuterol/Ipratropium (Duoneb 3 Mg/0.5 Mg (3 Ml) Ud) 3 ml INH RQ8 [facility] Last Admin: 06/08/16 00:09 Dose: Not Given Docusate Sodium (Colace) 100 mg PO BID [facility] Last Admin: 06/07/16 17:14 Dose: 100 mg Enalapril Maleate (Vasotec) 5 mg PO DAILY [facility] Last Admin: 06/07/16 13:35 Dose: 5 mg Famotidine (Pepcid) 20 mg PO DAILY [facility] Last Admin: 06/07/16 13:32 Dose: 20 mg Finasteride (Proscar) 5 mg PO DAILY [facility] Last Admin: 06/07/16 13:32 Dose: 5 mg Sodium Chloride (Sodium Chloride 0.9%) 1,000 mls @ 75 mls/hr IV .[id number] [facility] Last Admin: 06/07/16 21:01 Dose: 75 mls/hr Lactulose (Enulose) 20 gm PO BID [facility] Last Admin: 06/07/16 17:14 Dose: 20 gm Fluticasone/Salmeterol (Advair Diskus 100/50) 1 puff INH RQ12 [facility] Last Admin: 06/07/16 07:29 Dose: Not Given Tamsulosin HCl (Flomax) 0.4 mg PO DAILY [facility] Last Admin: 06/07/16 13:35 Dose: 0.4 mg Tramadol HCl (Ultram) 25 mg PO Q6 PRN PRN Reason: Pain, moderate (4-7) Last Admin: 06/07/16 13:33 Dose: 25 mg - Labs Labs: 06/07/16 06:41 06/07/16 06:41 PT 14.6 SECONDS (9.7-12.2) H 05/30/16 06:59 INR 1.3 05/30/16 06:59 APTT 31 SECONDS (21-34) 05/30/16 06:59
--- NOTE | 2016-06-08 11:41 | PN ---
DATE: 06/08/2016 REASON FOR FOLLOWUP: Mucinous adenocarcinoma. SUBJECTIVE: The patient denies any complaints at this time, is status post colonoscopy yesterday wit h a sacral tumor for biopsy, status post partial proctectomy and anastomosis with rectal polypectomy, also for Port-A-Cath placement. PHYSICAL EXAMINATION: VITAL SIGNS: Temperature is 97.7, blood pressure is 150/80, pulse 80, respirations 20. HEENT: Pale. No scleral icterus is seen. NECK: Supple. CHEST: Bilateral air entry is decreased. S1, S2, regular rate and rhythm. ABDOMEN: Soft. LABORATORY DATA: White count of 7, hemoglobin of 12.8, platelets of 400. 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 The patient will be scheduled for Port-A-Cath placement. Further rec ommendations once cecal biopsy is available. Ester Perez MD cc: [id number] TT: 06/08/2016 11:40:48 Confirmation # [id number] Dictation # [id number] [id number]
[2016-06-08 12:05] LABS: BASO # 0.1 K/uL (0.0-0.2); BASO % 0.6 % (0.0-2.0); EOS # 0.1 K/uL (0.0-0.7); HEMATOCRIT 40.4 % (35.0-51.0); LYMPH # 1.4 K/uL (1.0-4.3); MEAN CELL VOLUME 88.9 fL (80.0-94.0); MEAN CORPUSCULAR HEMOGLOBIN 29.6 pg (27.0-31.0); MEAN CORPUSCULAR HGB CONC 33.3 g/dL (33.0-37.0); MEAN PLATELET VOLUME 6.7 fL (7.2-11.7); MONO # 0.7 K/uL (0.0-0.8); MONO % 8.6 % (0.0-10.0); WHITE BLOOD COUNT 8.6 K/uL (4.8-10.8)
[2016-06-08 12:14] LABS: CHLORIDE 97 mmol/L (98-107)
[2016-06-08 12:15] LABS: POTASSIUM 3.8 mmol/L (3.6-5.2); SODIUM 134 mmol/L (132-148)
[2016-06-08 12:17] LABS: BILIRUBIN,TOTAL 0.8 mg/dL (0.2-1.3); CARBON DIOXIDE 25 mmol/L (22-30); GFR AFRICAN-AMERICAN > 60; TOTAL PROTEIN 6.7 g/dL (6.3-8.3)
[2016-06-08 12:18] LABS: ALKALINE PHOSPHATASE 57 U/L (38-126); ALT/SGPT 31 U/L (21-72); AST/SGOT 20 U/L (17-59); BLOOD UREA NITROGEN 6 mg/dL (9-20); CALCIUM 8.5 mg/dl (8.6-10.4); GLUCOSE,RANDOM 77 mg/dL (75-110); MAGNESIUM 1.8 mg/dL (1.6-2.3)
[2016-06-08] MEDS ORDERED: ceFAZolin IV 1 gm in Dextrose 50 ML IVPB ONE (13:11)
[2016-06-08] MEDS ORDERED: HEPARIN-NS 5,000 UNITS/500 ML 500 ML IV ONE (13:28)
[2016-06-08] MEDS ORDERED: Lidocaine 1% Inj (20ml) ONE (13:28)
[2016-06-08] MEDS ORDERED: Bupivacaine HCl 0.25% PF (10 ml) Inj ONE (13:29)
[2016-06-08] MEDS ORDERED: Midazolam 2 MG/2 ML VIAL ONE (13:55)
[2016-06-08] MEDS ORDERED: Propofol 10 mg/ml Inj (20 ML) ONE (13:55)
--- NOTE | 2016-06-08 14:51 | CP.PCM.CON ---
<Radha Frausto - Last Filed: 06/08/16 15:11> History of Present Illness - History of Present Illness History of Present Illness: Gastroenterology Fellow/PGY4 Consult Note 60 year old male with history of Scoliosis and neurofibromas (clinical characteristics of neurofibromatosis), COPD, Hypertension, Hyperlipidemia presenting with rectal prolapse. Patient states he has had bulging from his rectum for a "long time" but notes daily bowel movements with hematochezia that he attributed to hemorrhoidal bleeding. He notes a thirty pound weight loss in the last few months with asociated loss of appetite. He developed rectal pain leading to outpatient surgical evaluation 05/23/16 with diagnosis of rectal prolapse. He was instructed for ER presentation for further workup. Surgical intervention on 05/29/16-partial proctectomy with proctoanal anastamosis leading to resection of incarcerated rectal prolapse involving 70% of lumen circumference, 30% rectal mass circumference, and two polyps. 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 EGD without acute pathology and colonoscopy 06/07/16 showed sessile, nonobstructive, large distal rectal mass without neoplastic changes on biopsy ( nondiagnostic), anal stricture, diverticulosis, and external hemorrhoids. At present, patient notes a small amount of rectal bleeding this morning, which has decreased in volume and frequency since proctectomy. He notes mid-abdominal pain for the last four to five days. He denies diarrhea, constipation, melena, nausea, vomiting, acid reflux, indigestion, bloating, or heartburn. No prior EGD or colonoscopy before present inpatient evaluation. Family-denies colorectal cancer, stomach cancer Social-quit tobacco 8 years ago, previous 20 pack year history, denies alcohol or illicit drugs Surgery- partial proctectomy with proctoanal anastamosis 05/29/16 Review of Systems - Review of Systems Review of Systems: A 12-point review of systems negative except for as above Past Patient History - Past Medical History & Family History Past Medical History?: Yes - Past Social History Smoking Status: Former Smoker (Quit 9 years ago) Alcohol: None Home Situation {Lives}: With Family - CARDIAC Hx Hypertension: Yes - PULMONARY Hx Asthma: Yes - INTEGUMENTARY Other/Comment: neurofibromatosis - MUSCULOSKELETAL/RHEUMATOLOGICAL Hx Falls: No Other/Comment: Levoscoliosis - GASTROINTESTINAL Hx Hemorrhoids: Yes Other/Comment: rectal prolapse - GENITOURINARY/GYNECOLOGICAL Hx Prostate Problems: Yes - PSYCHIATRIC Hx Substance Use: No - ANESTHESIA Hx Anesthesia: No Hx Anesthesia Reactions: No Meds Allergies/Adverse Reactions: Allergies Allergy/AdvReac Type Severity Reaction Status Date / Time No Known Allergies Allergy Verified 05/28/16 09:49 - Medications Medications: Current Medications Albuterol/Ipratropium (Duoneb 3 Mg/0.5 Mg (3 Ml) Ud) 3 ml INH RQ8 [facility] Last Admin: 06/08/16 08:00 Dose: Not Given Docusate Sodium (Colace) 100 mg PO BID [facility] Last Admin: 06/08/16 12:04 Dose: Not Given Enalapril Maleate (Vasotec) 5 mg PO DAILY [facility] Last Admin: 06/08/16 12:05 Dose: Not Given Famotidine (Pepcid) 20 mg PO DAILY [facility] Last Admin: 06/08/16 12:05 Dose: Not Given Finasteride (Proscar) 5 mg PO DAILY [facility] Last Admin: 06/08/16 12:05 Dose: Not Given Sodium Chloride (Sodium Chloride 0.9%) 1,000 mls @ 75 mls/hr IV .[id number] [facility] Last Admin: 06/07/16 21:01 Dose: 75 mls/hr Lactulose (Enulose) 20 gm PO BID [facility] Last Admin: 06/08/16 12:04 Dose: Not Given Fluticasone/Salmeterol (Advair Diskus 100/50) 1 puff INH RQ12 [facility] Last Admin: 06/08/16 08:00 Dose: Not Given Tamsulosin HCl (Flomax) 0.4 mg PO DAILY [facility] Last Admin: 06/08/16 12:05 Dose: Not Given Tramadol HCl (Ultram) 25 mg PO Q6 PRN PRN Reason: Pain, moderate (4-7) Last Admin: 06/07/16 13:33 Dose: 25 mg Physical Exam - Constitutional Appears: Non-toxic, No Acute Distress, Cachectic - Head Exam Head Exam: ATRAUMATIC, NORMOCEPHALIC - Eye Exam Eye Exam: EOMI, PERRL Pupil Exam: PERRL. absent: Miosis, Mydriatic - ENT Exam ENT Exam: Mucous Membranes Moist, Normal Oropharynx - Neck Exam Neck exam: Positive for: Full Rom, Normal Inspection - Respiratory Exam Respiratory Exam: Clear to Auscultation Bilateral. absent: Rales, Rhonchi, Wheezes - Cardiovascular Exam Cardiovascular Exam: RRR, +S1, +S2. absent: Gallop, Rubs Additional comments: pectus excavatum, levoscoliosis - GI/Abdominal Exam GI & Abdominal Exam: Normal Bowel Sounds, Soft, Tenderness. absent: Distended, Firm, Guarding, Organomegaly, Rebound, Rigid Additional comments: mid-epigastric and periumbilical tenderness to palpation; negative Escalona's sign - Extremities Exam Extremities exam: Positive for: full ROM, normal inspection - Neurological Exam Neurological exam: Alert - Psychiatric Exam Psychiatric exam: Normal Affect, Normal Mood - Skin Skin Exam: Dry, Intact, Normal Color, Warm Additional comments: multiple neurofibromas and cafe au lait spots Results - Vital Signs Recent Vital Signs: Last Vital Signs Temp 97.7 F 06/08/16 07:00 Pulse 85 06/08/16 09:00 Resp 20 06/08/16 07:00 BP 150/83 06/08/16 07:00 Pulse Ox 97 06/08/16 07:00 - Labs Result Diagrams: 06/08/16 11:57 06/08/16 11:57 Labs: Laboratory Results - last 24 hr 06/08/16 11:57 WBC 8.6 RBC 4.54 Hgb 13.5 Hct 40.4 MCV 88.9 MCH 29.6 MCHC 33.3 RDW 13.0 Plt Count 385 MPV 6.7 L Neut % (Auto) 73.8 Lymph % (Auto) 16.0 L Ritchie % (Auto) 8.6 Eos % (Auto) 1.0 Baso % (Auto) 0.6 Neut # 6.4 Lymph # 1.4 Ritchie # 0.7 Eos # 0.1 Baso # 0.1 Sodium 134 Potassium 3.8 Chloride 97 L Carbon Dioxide 25 Anion Gap 15 BUN 6 L Creatinine 0.5 L Est GFR ( Amer) > 60 Est GFR (Non-Af Amer) > 60 Random Glucose 77 Calcium 8.5 L Magnesium 1.8 Total Bilirubin 0.8 AST 20 ALT 31 Alkaline Phosphatase 57 Total Protein 6.7 Albumin 3.4 L Globulin 3.3 Albumin/Globulin Ratio 1.0 Assessment & Plan - Assessment and Plan (Free Text) Assessment: 60 year old male with history of Scoliosis and neurofibromas (clinical characteristics of neurofibromatosis), COPD, Hypertension, Hyperlipidemia presenting with rectal prolapse, hematochezia, and cachexia. Treatment to date: 05/29/16-partial proctectomy with proctoanal anastamosis leading to resection of incarcerated rectal prolapse involving 70% of lumen circumference, 30% rectal mass circumference, and two polyps. 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 06/06/16 EGD without acute pathology and colonoscopy 06/07/16 showed sessile, nonobstructive, large distal rectal mass without neoplastic changes on biopsy (nondiagnostic), anal stricture, diverticulosis, and external hemorrhoids. No prior EGD or colonoscopy before present inpatient evaluation. Plan: >scheduled for rectal EUS Sunday (tomorrow) at [place] for further staging with Dr. Louis >NPO after midnight >Surgery managing- proctectomy revealing rectal mucinous adenocarcinoma >Gastroenterology managing-recent EGD and colonoscopy showing rectal mass >Radiation Oncology managing- await staging for chemoradiation recommendation >Oncology managing- Port-a-cath today >MRI Abdomen/Pelvis pending >continue supportive care: pain control, nutritional support >further recommendations after EUS <Michael Louis - Last Filed: 06/09/16 13:23> Meds - Medications Medications: Current Medications Albuterol/Ipratropium (Duoneb 3 Mg/0.5 Mg (3 Ml) Ud) 3 ml INH RQ8 [facility] Last Admin: 06/09/16 07:28 Dose: 3 ml Docusate Sodium (Colace) 100 mg PO BID [facility] Last Admin: 06/09/16 12:20 Dose: Not Given Enalapril Maleate (Vasotec) 5 mg PO DAILY [facility] Last Admin: 06/09/16 12:22 Dose: Not Given Famotidine (Pepcid) 20 mg PO DAILY [facility] Last Admin: 06/09/16 12:21 Dose: Not Given Finasteride (Proscar) 5 mg PO DAILY [facility] Last Admin: 06/09/16 12:22 Dose: Not Given Sodium Chloride (Sodium Chloride 0.9%) 1,000 mls @ 75 mls/hr IV .[id number] [facility] Last Admin: 06/09/16 10:16 Dose: Not Given Lactulose (Enulose) 20 gm PO BID [facility] Last Admin: 06/09/16 12:20 Dose: Not Given Fluticasone/Salmeterol (Advair Diskus 100/50) 1 puff INH RQ12 [facility] Last Admin: 06/08/16 19:25 Dose: Not Given Tamsulosin HCl (Flomax) 0.4 mg PO DAILY [facility] Last Admin: 06/09/16 12:21 Dose: Not Given Tramadol HCl (Ultram) 25 mg PO Q6 PRN PRN Reason: Pain, moderate (4-7) Last Admin: 06/07/16 13:33 Dose: 25 mg Results - Vital Signs Recent Vital Signs: Last Vital Signs Temp 98.8 F 06/09/16 00:00 Pulse 107 H 06/09/16 00:00 Resp 20 06/09/16 00:00 BP 148/73 06/09/16 00:00 Pulse Ox 97 06/09/16 00:00 - Labs Result Diagrams: 06/08/16 11:57 06/08/16 11:57 Attending/Attestation - Attestation I have personally seen and examined this patient.: Yes I have fully participated in the care of the patient.: Yes I have reviewed all pertinent clinical information: Yes Notes (Text): 06/09/16 13:21 60 year old male with h/o scoliosis, neurofibromas, COPD, HTN, HLD a/w rectal prolapse s/p surgical repair found to have rectal cancer. 1. Rectal cancer Plan: -plan for EUS for staging -d/w Dr. Child and Dr. Mandujano -NPO for procedure -enema in the morning -agree with MRI
--- NOTE | 2016-06-08 16:08 | RAD ---
HISTORY: RO PTX SP attempted portacath COMPARISON: No prior. FINDINGS: LUNGS: Study is quite limited due to marked severe levo scoliotic deformity with distortion of the mediastinum as well as the entire thorax. No definitive evidence of pneumothorax. There appears to be mild bibasilar atelectasis. PLEURA: No significant pleural effusion identified, no pneumothorax apparent. CARDIOVASCULAR: Mediastinum is quite distorted due to scoliosis and therefore heart size difficult to assess. OSSEOUS STRUCTURES: No significant abnormalities. VISUALIZED UPPER ABDOMEN: Normal. OTHER FINDINGS: None. IMPRESSION: Very limited study due to severe levo scoliotic deformity of the mid to lower thoracic spine. Marked distortion of the mediastinum both kendall thoraces. Suspect mild bibasilar atelectasis. No obvious pneumothorax so far as can be seen on this limited study.
--- NOTE | 2016-06-08 16:28 | OP ---
PROCEDURE DATE: 06/08/2016 PREOPERATIVE DIAGNOSIS: Rectal cancer. POSTOPERATIVE DIAGNOSIS: Rectal cancer. PROCEDURE PERFORMED: PortCath insertion. SURGEON: Jeremi Larson MD ANESTHESIA: General. ESTIMATED BLOOD LOSS: 30 mL. POSTOPERATIVE CONDITION: Stable. INDICATIONS FOR SURGERY: This is a 60-year-old male with a distal rectal cancer who through consulta tion with radiation oncology and medical oncologist is felt would do better with neoadjuvant chemothe rapy and radiation prior to surgery. For this reason he is taken to the OR for PortCath. PROCEDURE: The patient was taken to the operating room and placed in the supine position with the ne ck extended. An ultrasound was used and it was hard to envision the cause of the patient's kyphosis. His vein was not be readily visible, although a portion of it was. We attempted to cannulate this, but instead we wound up in the artery and pressure was held for a fair amount of time after it was r emoved. He developed somewhat of a neck hematoma and it was abandoned on this side. Attempt was the n made in the left subclavian vein via ultrasound and it was cannulated easily; however, the wire cou ld not be passed into the vena cava. It continually was passed into the left internal jugular vein w ith using both Glidewire and the wire. At some point, the procedure was abandoned and it was felt th at it would be better to be done by interventional radiology. The patient tolerated procedure well, returned to recovery room in stable condition. Jeremi Larson MD cc: [id number] TT: 06/08/2016 16:28:15 an
[2016-06-08] MEDS ORDERED: Gadodiamide 287 MG/ML VIAL (15ML) IV ONE (18:25)
[2016-06-09] MEDS: Albuterol-Ipratrop 3 mg / 0.5 (3 ml) UD INH SCH ×3 (00:50→16:13)
[2016-06-09] MEDS ORDERED: Gadodiamide 287 MG/ML VIAL (15ML) IV ONE (09:42)
[2016-06-09] MEDS: Sodium Chloride 0.9% 1,000 ML IV SCH (10:16)
--- NOTE | 2016-06-09 10:22 | MRI ---
MRI abdomen without/with IV contrast Indication: Rectal cancer with 7 mm hepatic lesion, r/o metastasis Technique: Multiplanar, multi sequence magnetic resonance images of the abdomen were obtained without and with the administration of intravenous gadolinium using a multi phase abdomen protocol. A total of 940 images submitted for review Comparison: CT abdomen and pelvis performed 06/01/16 Findings: Examination markedly limited by patient rotation due to scoliosis. Simple nonenhancing T1 hypo intense lesion within the anterior left hepatic lobe appears consistent with a simple cyst. Vague T1 hypointensity/ subtle T2 hyperintensity within the anterior hepatic lobe without evidence of enhancement. The gallbladder, spleen, pancreas, and adrenal glands appear grossly unremarkable. The kidneys enhance symmetrically without evidence of hydronephrosis. No bulky adenopathy identified. Limited views of the inferior thorax appear unremarkable. Impression: Limited study. Simple nonenhancing T1 hypointense lesion within the anterior left hepatic lobe appears consistent with a simple cyst. Vague T1 hypointensity/ subtle T2 hyperintensity within the anterior hepatic lobe without evidence of post contrast enhancement, indeterminate. These features do not appear suspicious and may be related to the ligamentum teres however recommend further evaluation with hepatic ultrasound as well as continued follow-up. Preliminary impression was provided by virtual radi[facility].
--- NOTE | 2016-06-09 12:28 | MRI ---
PROCEDURE: MRI of the pelvis without and with IV contrast administration. HISTORY: rectal ca - evaluate for extent of local disease COMPARISON: Comparison is made to the previous CT with contrast dated 06/01/2016. TECHNIQUE: Axial coronal and sagittal MRI of the pelvis were obtained before and after IV contrast administration. FINDINGS: There is heterogeneous signal 2.8 x 2.1 x2.2 centimeter enhancing mass lesion at the left lateral wall of the anorectal junction. This mass lesion seen extending through the entire wall of the rectum and involving the adjacent perirectal/perianal fat which also demonstrate enhancement and hazy increased signal. There is no evidence of large bowel obstruction. No evidence of significant lymphadenopathy in the pelvis. The prostate is heterogeneous mildly to moderately enlarged demonstrate heterogeneous enhancement and measures at 5 centimeter in the transverse diameter. The urinary bladder is grossly unremarkable. There is no evidence of destructive bony lesion. IMPRESSION: Heterogeneous enhancing mass lesion at the left lateral wall of the recto anal junction measures 2.5 centimeter extending to the adjacent perianal/perirectal fat consistent with the patient known history of anal rectal cancer. No evidence of lymphadenopathy in the pelvis. [id number] enlarged prostate.
[2016-06-09] MEDS ORDERED: ceFAZolin IV 2 gm in Dextrose 50 ML IVPB ONE (13:00)
--- NOTE | 2016-06-09 13:06 | CP.PCM.PN ---
<Briseyda Murphy - Last Filed: 06/09/16 13:02> Subjective - Date & Time of Evaluation Date of Evaluation: 06/09/16 Time of Evaluation: 07:20 - Subjective Subjective: PGY [address] Hopkins: Patient seen and examined at bedside. No overnight events as per nursing. Patient is s/p partial protectomy with anastomosis and rectal polypectomy with biopsy of anal tumor. He denies fever, chills, chest pain, difficulty breathing , palpitations, abdominal pain, N/v. he is tolerating diet, Still reports a small amount of blood per rectum but states that it is improving. He is going to [facility] for EUS procedure today. S/p portacath placement. Objective - Vital Signs/Intake and Output Vital Signs (last 24 hours): Temp Pulse Resp BP Pulse Ox 98.8 F 107 H 20 148/73 97 06/09/16 00:00 06/09/16 00:00 06/09/16 00:00 06/09/16 00:00 06/09/16 00:00 Intake and Output: 06/09/16 06/09/16 06:59 18:59 Intake Total 600 Balance 600 - Medications Medications: Current Medications Albuterol/Ipratropium (Duoneb 3 Mg/0.5 Mg (3 Ml) Ud) 3 ml INH RQ8 [facility] Last Admin: 06/09/16 07:28 Dose: 3 ml Docusate Sodium (Colace) 100 mg PO BID [facility] Last Admin: 06/09/16 12:20 Dose: Not Given Enalapril Maleate (Vasotec) 5 mg PO DAILY [facility] Last Admin: 06/09/16 12:22 Dose: Not Given Famotidine (Pepcid) 20 mg PO DAILY [facility] Last Admin: 06/09/16 12:21 Dose: Not Given Finasteride (Proscar) 5 mg PO DAILY [facility] Last Admin: 06/09/16 12:22 Dose: Not Given Sodium Chloride (Sodium Chloride 0.9%) 1,000 mls @ 75 mls/hr IV .[id number] [facility] Last Admin: 06/09/16 10:16 Dose: Not Given Lactulose (Enulose) 20 gm PO BID [facility] Last Admin: 06/09/16 12:20 Dose: Not Given Fluticasone/Salmeterol (Advair Diskus 100/50) 1 puff INH RQ12 [facility] Last Admin: 06/08/16 19:25 Dose: Not Given Tamsulosin HCl (Flomax) 0.4 mg PO DAILY [facility] Last Admin: 06/09/16 12:21 Dose: Not Given Tramadol HCl (Ultram) 25 mg PO Q6 PRN PRN Reason: Pain, moderate (4-7) Last Admin: 06/07/16 13:33 Dose: 25 mg - Labs Labs: 06/08/16 11:57 06/08/16 11:57 PT 14.6 SECONDS (9.7-12.2) H 05/30/16 06:59 INR 1.3 05/30/16 06:59 APTT 31 SECONDS (21-34) 05/30/16 06:59 - Constitutional Appears: Non-toxic, No Acute Distress - Head Exam Head Exam: ATRAUMATIC, NORMAL INSPECTION - Eye Exam Eye Exam: EOMI, Normal appearance, PERRL Pupil Exam: NORMAL ACCOMODATION - ENT Exam ENT Exam: Mucous Membranes Moist - Neck Exam Neck Exam: Normal Inspection - Respiratory Exam Respiratory Exam: Clear to Ausculation Bilateral, NORMAL BREATHING PATTERN. absent: Respiratory Distress - Cardiovascular Exam Cardiovascular Exam: REGULAR RHYTHM, +S1, +S2 - GI/Abdominal Exam GI & Abdominal Exam: Soft, Tenderness, Normal Bowel Sounds. absent: Distended, Firm, Guarding - Extremities Exam Extremities Exam: Normal Inspection. absent: Calf Tenderness, Pedal Edema - Back Exam Back Exam: absent: CVA tenderness (L), CVA tenderness (R) Additional comments: Scolosis - Neurological Exam Neurological Exam: Alert, Awake, Oriented x3 Neuro motor strength exam: Left Upper Extremity: 5, Right Upper Extremity: 5, Left Lower Extremity: 5, Right Lower Extremity: 5 - Psychiatric Exam Psychiatric exam: Normal Affect, Normal Mood - Skin Skin Exam: Dry, Intact, Normal Color, Warm Additional comments: NF skin changes Assessment and Plan - Assessment and Plan (Free Text) Assessment: Rectal mass/prolapse s/p port a cath placement For EUS at [facility] today Surgical plans per Dr Larson - Pt had a partial protectomy procedure on . Management/pain management as per primary surgical team. Ultram 25 mg PO Q6 prn pain Percocet 2 tab PO Q4 prn pain Patient has low cardiac risk (0.4%) for non-cardiac procedure; also, despite asthma and severe scoliosis history, ABG is relatively re-assuring with close to normal PO2 and no hypercapnea. Pathology: Rectal adenocarcinoma Rad onc consulted. -For rectal staging to have an EUS (if feasible) or MRI of the pelvis to determine the T-stage and whether there are regional nodes. GI consult - Dr. Link -Biopsy shows adenocarcinoma with mucinous component. For possible colonoscopy - EGD - normal - S/p colonoscopy today with cecum biopsy CT Abd/Pel: 7.5mm low-attenuation lesion at the anterior aspect of the left liver lobe, not clearly seen in the previous exam. Urinary retention Resolved:Patient is voiding comfortably Finesteride 5mg PO daily Flomax 0.4 mg PO daily Piña discontinued. Bladder scan was 93 cc Pt with hx of BPH states he used to be on meds to help but hasn't taken in two years Patient was complaining of burning sensation related to piña catheter; nursing staff was asked to change catheter; otherwise, patient placed on flomax and finasteride for urinary retention; can give voiding trial in a few days; Dr. Alfredo Panda consulted, help appreciated - f/u recs -patient can be discharged with piña and leg bag with outpatient f/u; HTN Vasotec 5mg PO daily Monitor and adjust if needed. Asthma Duoneb RQ8 [facility] Advair 100/[address] Velazquez consulted - help appreciated ABG is relatively re-assuring with close to normal PO2 and no hypercapnea. Patient is a moderate risk for surgery due to severe levoscoliotic curve. NS at 75 cc/hour <Theo Hopkins - Last Filed: 06/12/16 15:28> Objective - Vital Signs/Intake and Output Vital Signs (last 24 hours): Temp Pulse Resp BP Pulse Ox 98.4 F 82 18 130/78 99 06/11/16 23:48 06/12/16 00:00 06/11/16 23:48 06/11/16 23:48 06/11/16 23:48 - Medications Medications: Current Medications Albuterol/Ipratropium (Duoneb 3 Mg/0.5 Mg (3 Ml) Ud) 3 ml INH RQ8 [facility] Last Admin: 06/12/16 08:25 Dose: 3 ml Docusate Sodium (Colace) 100 mg PO BID [facility] Last Admin: 06/12/16 09:41 Dose: Not Given Enalapril Maleate (Vasotec) 5 mg PO DAILY [facility] Last Admin: 06/12/16 09:42 Dose: Not Given Famotidine (Pepcid) 20 mg PO DAILY [facility] Last Admin: 06/12/16 09:42 Dose: Not Given Finasteride (Proscar) 5 mg PO DAILY [facility] Last Admin: 06/12/16 09:42 Dose: Not Given Lactulose (Enulose) 20 gm PO BID [facility] Last Admin: 06/12/16 09:42 Dose: Not Given Fluticasone/Salmeterol (Advair Diskus 100/50) 1 puff INH RQ12 [facility] Last Admin: 06/12/16 08:25 Dose: 1 puff Tamsulosin HCl (Flomax) 0.4 mg PO DAILY [facility] Last Admin: 06/12/16 09:42 Dose: Not Given Tramadol HCl (Ultram) 25 mg PO Q6 PRN PRN Reason: Pain, moderate (4-7) Last Admin: 06/07/16 13:33 Dose: 25 mg - Labs Labs: 06/12/16 07:01 06/12/16 07:01 PT 12.6 SECONDS (9.7-12.2) H 06/12/16 07:01 INR 1.1 06/12/16 07:01 APTT 30 SECONDS (21-34) 06/12/16 07:01 Attending/Attestation - Attestation I have personally seen and examined this patient.: Yes I have fully participated in the care of the patient.: Yes I have reviewed all pertinent clinical information, including history, physical exam and plan: Yes Notes (Text): 06/12/16 15:27 Patient was seen and examined at bedside with the resident Patient appears comfortable Patient is able to void now. Postop management as per surgery. Possible EUS and biopsy as per GI.
[2016-06-10] MEDS: Albuterol-Ipratrop 3 mg / 0.5 (3 ml) UD INH SCH ×2 (00:40→09:12)
--- NOTE | 2016-06-10 01:49 | CP.PCM.PN ---
<Dick Ruby - Last Filed: 06/10/16 09:59> Subjective - Date & Time of Evaluation Date of Evaluation: 06/10/16 Time of Evaluation: 00:25 - Subjective Subjective: PGY [address] Hopkins: Patient seen and examined at bedside. No acute events as per nursing. Patient is s/p partial protectomy with anastomosis and rectal polypectomy with biopsy of anal tumor. S/p portacath placement. Tolerating diet, ambulating with steady gait. Returned from [facility] yesterday, s/p EUS. Denies fever, chills, chest pain, difficulty breathing, palpitations, abdominal pain, N/V, or any additional complaints. Objective - Vital Signs/Intake and Output Vital Signs (last 24 hours): Temp Pulse Resp BP Pulse Ox 98.4 F 95 H 20 145/76 96 06/09/16 23:53 06/09/16 23:53 06/09/16 23:53 06/09/16 23:53 06/09/16 23:53 - Medications Medications: Current Medications Albuterol/Ipratropium (Duoneb 3 Mg/0.5 Mg (3 Ml) Ud) 3 ml INH RQ8 [facility] Last Admin: 06/10/16 00:40 Dose: Not Given Docusate Sodium (Colace) 100 mg PO BID [facility] Last Admin: 06/09/16 17:37 Dose: 100 mg Enalapril Maleate (Vasotec) 5 mg PO DAILY [facility] Last Admin: 06/09/16 12:22 Dose: Not Given Famotidine (Pepcid) 20 mg PO DAILY [facility] Last Admin: 06/09/16 12:21 Dose: Not Given Finasteride (Proscar) 5 mg PO DAILY [facility] Last Admin: 06/09/16 12:22 Dose: Not Given Sodium Chloride (Sodium Chloride 0.9%) 1,000 mls @ 75 mls/hr IV .[id number] [facility] Last Admin: 06/09/16 10:16 Dose: Not Given Lactulose (Enulose) 20 gm PO BID [facility] Last Admin: 06/09/16 17:38 Dose: 20 gm Fluticasone/Salmeterol (Advair Diskus 100/50) 1 puff INH RQ12 [facility] Last Admin: 06/08/16 19:25 Dose: Not Given Tamsulosin HCl (Flomax) 0.4 mg PO DAILY [facility] Last Admin: 06/09/16 12:21 Dose: Not Given Tramadol HCl (Ultram) 25 mg PO Q6 PRN PRN Reason: Pain, moderate (4-7) Last Admin: 06/07/16 13:33 Dose: 25 mg - Labs Labs: 06/08/16 11:57 06/08/16 11:57 PT 14.6 SECONDS (9.7-12.2) H 05/30/16 06:59 INR 1.3 05/30/16 06:59 APTT 31 SECONDS (21-34) 05/30/16 06:59 - Additional Findings Additional findings: - Constitutional Appears: Non-toxic, No Acute Distress - Head Exam Head Exam: ATRAUMATIC, NORMAL INSPECTION - Eye Exam Eye Exam: EOMI, Normal appearance, PERRL Pupil Exam: NORMAL ACCOMODATION - ENT Exam ENT Exam: Mucous Membranes Moist - Neck Exam Neck Exam: Normal Inspection - Respiratory Exam Respiratory Exam: Clear to Ausculation Bilateral, NORMAL BREATHING PATTERN. absent: Respiratory Distress - Cardiovascular Exam Cardiovascular Exam: REGULAR RHYTHM, +S1, +S2 - GI/Abdominal Exam GI & Abdominal Exam: Soft, Tenderness, Normal Bowel Sounds. absent: Distended, Firm, Guarding - Extremities Exam Extremities Exam: Normal Inspection. absent: Calf Tenderness, Pedal Edema - Back Exam Back Exam: absent: CVA tenderness (L), CVA tenderness (R) Additional comments: Scolosis - Neurological Exam Neurological Exam: Alert, Awake, Oriented x3 Neuro motor strength exam: Left Upper Extremity: 5, Right Upper Extremity: 5, Left Lower Extremity: 5, Right Lower Extremity: 5 - Psychiatric Exam Psychiatric exam: Normal Affect, Normal Mood - Skin Skin Exam: Dry, Intact, Normal Color, Warm Additional comments: NF skin changes Assessment and Plan - Assessment and Plan (Free Text) Assessment: Rectal mass/prolapse -MRI abdomen 06/09: Simple nonenhancing T1 hypointense lesion within the anterior left hepatic lobe appears consistent with a simple cyst. Vague T1 hypointensity/ subtle T2 hyperintensity within the anterior hepatic lobe without evidence of post contrast enhancement, indeterminate. Further evaluation with hepatic ultrasound recommended. see full report. -MRI pelvis 06/09: Heterogeneous enhancing mass lesion at the left lateral wall of the recto anal junction measures 2.5 centimeter extending to the adjacent perianal/perirectal fat consistent with the patient known history of anal rectal cancer. No evidence of lymphadenopathy in the pelvis. Mildly-to- moderately enlarged prostate. see full report. s/p port a cath placement Surgical plans per Dr Larson - Pt had a partial protectomy procedure on . Management/pain management as per primary surgical team. Ultram 25 mg PO Q6 prn pain Percocet 2 tab PO Q4 prn pain Patient has low cardiac risk (0.4%) for non-cardiac procedure; also, despite asthma and severe scoliosis history, ABG is relatively re-assuring with close to normal PO2 and no hypercapnea. Pathology: Rectal adenocarcinoma Rad onc consulted. -For rectal staging to have an EUS (if feasible) or MRI of the pelvis to determine the T-stage and whether there are regional nodes. GI consult - Dr. Link -Biopsy shows adenocarcinoma with mucinous component. For possible colonoscopy - EGD - normal - S/p colonoscopy today with cecum biopsy CT Abd/Pel 06/01: 7.5mm low-attenuation lesion at the anterior aspect of the left liver lobe, not clearly seen in the previous exam. Urinary retention 06/09-06/10: Patient is voiding comfortably Finesteride 5mg PO daily Flomax 0.4 mg PO daily Piña discontinued. Bladder scan was 93 cc Pt with hx of BPH states he used to be on meds to help but hasn't taken in two years Patient was complaining of burning sensation related to piña catheter; nursing staff was asked to change catheter; otherwise, patient placed on flomax and finasteride for urinary retention; can give voiding trial in a few days; Dr. Alfredo Panda consulted, help appreciated - f/u recs -patient can be discharged with piña and leg bag with outpatient f/u; HTN 06/10: BP WNL, monitor Vasotec 5mg PO daily Monitor and adjust if needed. Asthma Duoneb RQ8 [facility] Advair 100/[address] Velazquez consulted - help appreciated ABG is relatively re-assuring with close to normal PO2 and no hypercapnea. Patient is a moderate risk for surgery due to severe levoscoliotic curve. NS at 75 cc/hour <Eb Mcknight - Last Filed: 06/27/16 22:53> Objective - Vital Signs/Intake and Output Vital Signs (last 24 hours): Temp Pulse Resp BP Pulse Ox 97.6 F 92 H 20 164/91 H 98 06/16/16 15:21 06/16/16 22:45 06/16/16 15:21 06/16/16 15:21 06/16/16 15:21 - Labs Labs: 06/12/16 07:01 06/12/16 07:01 PT 12.6 SECONDS (9.7-12.2) H 06/12/16 07:01 INR 1.1 06/12/16 07:01 APTT 30 SECONDS (21-34) 06/12/16 07:01 Attending/Attestation - Attestation I have personally seen and examined this patient.: Yes I have fully participated in the care of the patient.: Yes I have reviewed all pertinent clinical information, including history, physical exam and plan: Yes
[2016-06-10 07:35] LABS: CHLORIDE 93 mmol/L (98-107)
[2016-06-10 07:36] LABS: POTASSIUM 3.9 mmol/L (3.6-5.2); SODIUM 135 mmol/L (132-148)
[2016-06-10 07:39] LABS: ALB/GLOB RATIO 1.2 (1.0-2.1); ALKALINE PHOSPHATASE 56 U/L (38-126); ALT/SGPT 22 U/L (21-72); AST/SGOT 19 U/L (17-59); BILIRUBIN,TOTAL 0.8 mg/dL (0.2-1.3); BLOOD UREA NITROGEN 13 mg/dL (9-20); CARBON DIOXIDE 30 mmol/L (22-30); GFR AFRICAN-AMERICAN > 60; GLUCOSE,RANDOM 93 mg/dL (75-110); PHOSPHOROUS 3.3 mg/dL (2.5-4.5); TOTAL PROTEIN 6.7 g/dL (6.3-8.3)
[2016-06-10 07:40] LABS: CALCIUM 8.1 mg/dl (8.6-10.4); MAGNESIUM 1.7 mg/dL (1.6-2.3)
[2016-06-10] MEDS: Fluticasone-Salmeterol 100-50mcg Diskus INH SCH (09:11)
--- NOTE | 2016-06-10 12:57 | CP.PCM.PN ---
Subjective - Date & Time of Evaluation Date of Evaluation: 06/10/16 Time of Evaluation: 12:56 - Subjective Subjective: Patient complains of lower abdominal pain and burning in the rectum. He deneis having nausea or vomiting. Objective - Vital Signs/Intake and Output Vital Signs (last 24 hours): Temp Pulse Resp BP Pulse Ox 98.2 F 95 H 18 125/80 96 06/10/16 07:00 06/10/16 08:34 06/10/16 07:00 06/10/16 10:04 06/10/16 07:00 - Medications Medications: Current Medications Albuterol/Ipratropium (Duoneb 3 Mg/0.5 Mg (3 Ml) Ud) 3 ml INH RQ8 [facility] Last Admin: 06/10/16 09:12 Dose: 3 ml Docusate Sodium (Colace) 100 mg PO BID [facility] Last Admin: 06/10/16 10:05 Dose: 100 mg Enalapril Maleate (Vasotec) 5 mg PO DAILY [facility] Last Admin: 06/10/16 10:04 Dose: 5 mg Famotidine (Pepcid) 20 mg PO DAILY [facility] Last Admin: 06/10/16 10:05 Dose: 20 mg Finasteride (Proscar) 5 mg PO DAILY [facility] Last Admin: 06/10/16 10:05 Dose: 5 mg Sodium Chloride (Sodium Chloride 0.9%) 1,000 mls @ 75 mls/hr IV .[id number] [facility] Last Admin: 06/09/16 10:16 Dose: Not Given Lactulose (Enulose) 20 gm PO BID [facility] Last Admin: 06/10/16 10:04 Dose: 20 gm Fluticasone/Salmeterol (Advair Diskus 100/50) 1 puff INH RQ12 [facility] Last Admin: 06/10/16 09:11 Dose: 1 puff Tamsulosin HCl (Flomax) 0.4 mg PO DAILY [facility] Last Admin: 06/10/16 10:05 Dose: 0.4 mg Tramadol HCl (Ultram) 25 mg PO Q6 PRN PRN Reason: Pain, moderate (4-7) Last Admin: 06/07/16 13:33 Dose: 25 mg - Labs Labs: 06/08/16 11:57 06/10/16 07:08 PT 14.6 SECONDS (9.7-12.2) H 05/30/16 06:59 INR 1.3 05/30/16 06:59 APTT 31 SECONDS (21-34) 05/30/16 06:59 - Constitutional Appears: No Acute Distress - Head Exam Head Exam: ATRAUMATIC, NORMOCEPHALIC - Eye Exam Eye Exam: EOMI, PERRL - Neck Exam Neck Exam: absent: Lymphadenopathy, Thyromegaly - Respiratory Exam Respiratory Exam: NORMAL BREATHING PATTERN. absent: Rales, Rhonchi, Wheezes - Cardiovascular Exam Cardiovascular Exam: REGULAR RHYTHM, +S1, +S2. absent: Gallop, Rubs, Murmur - GI/Abdominal Exam GI & Abdominal Exam: Firm, Tenderness, Normal Bowel Sounds. absent: Mass, Organomegaly Additional comments: Diffuse lower abdominal tenderness - Rectal Exam Rectal Exam: Deferred - Extremities Exam Extremities Exam: absent: Calf Tenderness, Pedal Edema Assessment and Plan - Assessment and Plan (Free Text) Assessment: Patient with a rectal lesion, S/P rectal EUS. Will check results of EUS and await surgical follow-up.
[2016-06-10] MEDS: Sodium Chloride 0.9% 1,000 ML IV SCH (13:10)
--- NOTE | 2016-06-11 00:13 | CP.PCM.PN ---
<Dick Ruby - Last Filed: 06/11/16 05:27> Subjective - Date & Time of Evaluation Date of Evaluation: 06/11/16 Time of Evaluation: 00:30 - Subjective Subjective: PGY [address] Hopkins: Patient seen and examined at bedside. No acute events as per nursing. Patient is s/p partial protectomy with anastomosis and rectal polypectomy with biopsy of anal tumor. S/p portacath placement. s/p EUS (06/09). Tolerating diet, ambulating with steady gait. Denies BM or gas. C/o mild RUQ abd pain. Denies fever, chills, chest pain, difficulty breathing, palpitations, N/V, or any additional complaints. Objective - Vital Signs/Intake and Output Vital Signs (last 24 hours): Temp Pulse Resp BP Pulse Ox 98.1 F 93 H 20 132/87 96 06/10/16 23:00 06/10/16 23:00 06/10/16 23:00 06/10/16 23:00 06/10/16 23:00 Intake and Output: 06/10/16 06/11/16 18:59 06:59 Intake Total 480 Output Total 3 Balance 477 - Medications Medications: Current Medications Albuterol/Ipratropium (Duoneb 3 Mg/0.5 Mg (3 Ml) Ud) 3 ml INH RQ8 [facility] Last Admin: 06/10/16 09:12 Dose: 3 ml Docusate Sodium (Colace) 100 mg PO BID [facility] Last Admin: 06/10/16 17:08 Dose: 100 mg Enalapril Maleate (Vasotec) 5 mg PO DAILY [facility] Last Admin: 06/10/16 10:04 Dose: 5 mg Famotidine (Pepcid) 20 mg PO DAILY [facility] Last Admin: 06/10/16 10:05 Dose: 20 mg Finasteride (Proscar) 5 mg PO DAILY [facility] Last Admin: 06/10/16 10:05 Dose: 5 mg Lactulose (Enulose) 20 gm PO BID [facility] Last Admin: 06/10/16 17:07 Dose: 20 gm Fluticasone/Salmeterol (Advair Diskus 100/50) 1 puff INH RQ12 [facility] Last Admin: 06/10/16 09:11 Dose: 1 puff Tamsulosin HCl (Flomax) 0.4 mg PO DAILY [facility] Last Admin: 06/10/16 10:05 Dose: 0.4 mg Tramadol HCl (Ultram) 25 mg PO Q6 PRN PRN Reason: Pain, moderate (4-7) Last Admin: 06/07/16 13:33 Dose: 25 mg - Labs Labs: 06/08/16 11:57 06/10/16 07:08 PT 14.6 SECONDS (9.7-12.2) H 05/30/16 06:59 INR 1.3 05/30/16 06:59 APTT 31 SECONDS (21-34) 05/30/16 06:59 - Additional Findings Additional findings: - Constitutional Appears: Non-toxic, No Acute Distress - Head Exam Head Exam: ATRAUMATIC, NORMAL INSPECTION - Eye Exam Eye Exam: EOMI, Normal appearance, PERRL Pupil Exam: NORMAL ACCOMODATION - ENT Exam ENT Exam: Mucous Membranes Moist - Neck Exam Neck Exam: Normal Inspection - Respiratory Exam Respiratory Exam: Clear to Ausculation Bilateral, NORMAL BREATHING PATTERN. absent: Respiratory Distress - Cardiovascular Exam Cardiovascular Exam: REGULAR RHYTHM, +S1, +S2 - GI/Abdominal Exam GI & Abdominal Exam: Soft, Tenderness (RUQ), Normal Bowel Sounds. absent: Distended, Firm, Guarding - Extremities Exam Extremities Exam: Normal Inspection. absent: Calf Tenderness, Pedal Edema - Back Exam Back Exam: absent: CVA tenderness (L), CVA tenderness (R) Additional comments: Scolosis - Neurological Exam Neurological Exam: Alert, Awake, Oriented x3 Neuro motor strength exam: Left Upper Extremity: 5, Right Upper Extremity: 5, Left Lower Extremity: 5, Right Lower Extremity: 5 - Psychiatric Exam Psychiatric exam: Normal Affect, Normal Mood - Skin Skin Exam: Dry, Intact, Normal Color, Warm Assessment and Plan - Assessment and Plan (Free Text) Assessment: Rectal mass/prolapse 06/11: GI, Dr. Sifuentes - Patient with a rectal lesion, S/P rectal EUS. Will check results of EUS and await surgical follow-up. -MRI abdomen 06/09: Simple nonenhancing T1 hypointense lesion within the anterior left hepatic lobe appears consistent with a simple cyst. Vague T1 hypointensity/ subtle T2 hyperintensity within the anterior hepatic lobe without evidence of post contrast enhancement, indeterminate. Further evaluation with hepatic ultrasound recommended. see full report. -MRI pelvis 06/09: Heterogeneous enhancing mass lesion at the left lateral wall of the recto anal junction measures 2.5 centimeter extending to the adjacent perianal/perirectal fat consistent with the patient known history of anal rectal cancer. No evidence of lymphadenopathy in the pelvis. Mildly-to- moderately enlarged prostate. see full report. s/p port a cath placement Surgical plans per Dr Larson - Pt had a partial protectomy procedure on . Management/pain management as per primary surgical team. Ultram 25 mg PO Q6 prn pain Percocet 2 tab PO Q4 prn pain Patient has low cardiac risk (0.4%) for non-cardiac procedure; also, despite asthma and severe scoliosis history, ABG is relatively re-assuring with close to normal PO2 and no hypercapnea. Pathology: Rectal adenocarcinoma Rad onc consulted. -For rectal staging to have an EUS (if feasible) or MRI of the pelvis to determine the T-stage and whether there are regional nodes. GI consult - Dr. Link -Biopsy shows adenocarcinoma with mucinous component. For possible colonoscopy - EGD - normal - S/p colonoscopy today with cecum biopsy CT Abd/Pel 06/01: 7.5mm low-attenuation lesion at the anterior aspect of the left liver lobe, not clearly seen in the previous exam. Urinary retention 06/09-06/11: Patient is voiding comfortably Finesteride 5mg PO daily Flomax 0.4 mg PO daily Piña discontinued. Bladder scan was 93 cc Pt with hx of BPH states he used to be on meds to help but hasn't taken in two years Patient was complaining of burning sensation related to piña catheter; nursing staff was asked to change catheter; otherwise, patient placed on flomax and finasteride for urinary retention; can give voiding trial in a few days; Dr. Alfredo Panda consulted, help appreciated - f/u recs -patient can be discharged with piña and leg bag with outpatient f/u; HTN 06/10-06/11: BP WNL, monitor Vasotec 5mg PO daily Monitor and adjust if needed. Asthma Duoneb RQ8 [facility] Advair 100/[address] Velazquez consulted - help appreciated ABG is relatively re-assuring with close to normal PO2 and no hypercapnea. Patient is a moderate risk for surgery due to severe levoscoliotic curve. NS at 75 cc/hour Prophylaxis SCDs Regular diet Pepcid 20mg PO qd <Eb Mcknight - Last Filed: 06/11/16 23:17> Objective - Vital Signs/Intake and Output Vital Signs (last 24 hours): Temp Pulse Resp BP Pulse Ox 98.2 F 86 20 128/78 98 06/11/16 16:00 06/11/16 16:00 06/11/16 16:00 06/11/16 16:00 06/11/16 16:00 Intake and Output: 06/11/16 06/12/16 18:59 06:59 Intake Total 480 Balance 480 - Medications Medications: Current Medications Albuterol/Ipratropium (Duoneb 3 Mg/0.5 Mg (3 Ml) Ud) 3 ml INH RQ8 [facility] Last Admin: 06/11/16 19:25 Dose: 3 ml Docusate Sodium (Colace) 100 mg PO BID [facility] Last Admin: 06/11/16 17:16 Dose: 100 mg Enalapril Maleate (Vasotec) 5 mg PO DAILY [facility] Last Admin: 06/11/16 09:54 Dose: 5 mg Famotidine (Pepcid) 20 mg PO DAILY [facility] Last Admin: 06/11/16 09:54 Dose: 20 mg Finasteride (Proscar) 5 mg PO DAILY [facility] Last Admin: 06/11/16 09:55 Dose: 5 mg Lactulose (Enulose) 20 gm PO BID [facility] Last Admin: 06/11/16 17:15 Dose: 20 gm Fluticasone/Salmeterol (Advair Diskus 100/50) 1 puff INH RQ12 [facility] Last Admin: 06/11/16 19:25 Dose: 1 puff Tamsulosin HCl (Flomax) 0.4 mg PO DAILY [facility] Last Admin: 06/11/16 09:55 Dose: 0.4 mg Tramadol HCl (Ultram) 25 mg PO Q6 PRN PRN Reason: Pain, moderate (4-7) Last Admin: 06/07/16 13:33 Dose: 25 mg - Labs Labs: 06/08/16 11:57 06/11/16 06:58 PT 14.6 SECONDS (9.7-12.2) H 05/30/16 06:59 INR 1.3 05/30/16 06:59 APTT 31 SECONDS (21-34) 05/30/16 06:59 Attending/Attestation - Attestation I have personally seen and examined this patient.: Yes I have fully participated in the care of the patient.: Yes I have reviewed all pertinent clinical information, including history, physical exam and plan: Yes Notes (Text): Patient with asthma, admitted with rectal prolapse, underwent proctectomy; rectal mass returning positive for adenocarcinoma; Patient feels well; portacath inserted last week for chemo; also under went MRI and EUS to assess for metastases; HTN with fluctuating BP; should have more accurate outpatient BP measurements before increasing BP meds further; Asthma controlled, continue advair; Urinary retention resolved, continue flomax and finasteride. 06/11/16 23:12
[2016-06-11] MEDS: Albuterol-Ipratrop 3 mg / 0.5 (3 ml) UD INH SCH ×5 (01:31→23:47)
[2016-06-11 07:21] LABS: CHLORIDE 95 mmol/L (98-107); POTASSIUM 3.9 mmol/L (3.6-5.2); SODIUM 135 mmol/L (132-148)
[2016-06-11 07:23] LABS: ALB/GLOB RATIO 1.2 (1.0-2.1); AST/SGOT 19 U/L (17-59); BILIRUBIN,TOTAL 0.8 mg/dL (0.2-1.3); CARBON DIOXIDE 28 mmol/L (22-30); GFR AFRICAN-AMERICAN > 60; TOTAL PROTEIN 6.3 g/dL (6.3-8.3)
[2016-06-11 07:24] LABS: ALKALINE PHOSPHATASE 48 U/L (38-126); ALT/SGPT 22 U/L (21-72); BLOOD UREA NITROGEN 6 mg/dL (9-20); CALCIUM 8.2 mg/dl (8.6-10.4); GLUCOSE,RANDOM 93 mg/dL (75-110); MAGNESIUM 1.9 mg/dL (1.6-2.3); PHOSPHOROUS 3.6 mg/dL (2.5-4.5)
[2016-06-11] MEDS: Fluticasone-Salmeterol 100-50mcg Diskus INH SCH ×2 (09:02→19:25)
[2016-06-12 07:28] LABS: INR 1.1
[2016-06-12 07:32] LABS: CHLORIDE 94 mmol/L (98-107); POTASSIUM 3.9 mmol/L (3.6-5.2); SODIUM 134 mmol/L (132-148)
[2016-06-12 07:34] LABS: GFR AFRICAN-AMERICAN > 60
[2016-06-12 07:35] LABS: ALB/GLOB RATIO 1.2 (1.0-2.1); ALKALINE PHOSPHATASE 56 U/L (38-126); ALT/SGPT 16 U/L (21-72); AST/SGOT 20 U/L (17-59); BILIRUBIN,TOTAL 0.5 mg/dL (0.2-1.3); BLOOD UREA NITROGEN 10 mg/dL (9-20); CALCIUM 8.7 mg/dl (8.6-10.4); CARBON DIOXIDE 27 mmol/L (22-30); GLUCOSE,RANDOM 95 mg/dL (75-110); MAGNESIUM 1.8 mg/dL (1.6-2.3); TOTAL PROTEIN 6.7 g/dL (6.3-8.3)
[2016-06-12 07:39] LABS: BASO # 0.1 K/uL (0.0-0.2); BASO % 0.6 % (0.0-2.0); EOS # 0.1 K/uL (0.0-0.7); EOS % 1.1 % (0.0-4.0); HEMATOCRIT 38.1 % (35.0-51.0); LYMPH # 1.8 K/uL (1.0-4.3); LYMPH % 19.7 % (20.0-40.0); MEAN CELL VOLUME 88.7 fL (80.0-94.0); MEAN CORPUSCULAR HEMOGLOBIN 29.9 pg (27.0-31.0); MEAN CORPUSCULAR HGB CONC 33.7 g/dL (33.0-37.0); MEAN PLATELET VOLUME 6.5 fL (7.2-11.7); MONO # 0.9 K/uL (0.0-0.8); MONO % 9.7 % (0.0-10.0); NRBC % 0.1 % (0.0-2.0); WHITE BLOOD COUNT 8.9 K/uL (4.8-10.8)
--- NOTE | 2016-06-12 07:59 | CP.PCM.PN ---
<Briseyda Murphy - Last Filed: 06/12/16 09:54> Subjective - Date & Time of Evaluation Date of Evaluation: 06/12/16 Time of Evaluation: 07:15 - Subjective Subjective: PGY [address] Hopkins: Patient seen and examined at bedside. No acute events as per nursing. Tolerating diet, ambulating with steady gait. Denies BM or gas. C/o mild RUQ abd pain. Denies fever, chills, chest pain, difficulty breathing, palpitations, N/V, or any additional complaints. Is able to void without complaints. Patient will be going to [place] today for more imaging. Objective - Vital Signs/Intake and Output Vital Signs (last 24 hours): Temp Pulse Resp BP Pulse Ox 98.4 F 82 18 130/78 99 06/11/16 23:48 06/12/16 00:00 06/11/16 23:48 06/11/16 23:48 06/11/16 23:48 - Medications Medications: Current Medications Albuterol/Ipratropium (Duoneb 3 Mg/0.5 Mg (3 Ml) Ud) 3 ml INH RQ8 [facility] Last Admin: 06/11/16 23:47 Dose: Not Given Docusate Sodium (Colace) 100 mg PO BID [facility] Last Admin: 06/11/16 17:16 Dose: 100 mg Enalapril Maleate (Vasotec) 5 mg PO DAILY [facility] Last Admin: 06/11/16 09:54 Dose: 5 mg Famotidine (Pepcid) 20 mg PO DAILY [facility] Last Admin: 06/11/16 09:54 Dose: 20 mg Finasteride (Proscar) 5 mg PO DAILY [facility] Last Admin: 06/11/16 09:55 Dose: 5 mg Lactulose (Enulose) 20 gm PO BID [facility] Last Admin: 06/11/16 17:15 Dose: 20 gm Fluticasone/Salmeterol (Advair Diskus 100/50) 1 puff INH RQ12 [facility] Last Admin: 06/11/16 19:25 Dose: 1 puff Tamsulosin HCl (Flomax) 0.4 mg PO DAILY [facility] Last Admin: 06/11/16 09:55 Dose: 0.4 mg Tramadol HCl (Ultram) 25 mg PO Q6 PRN PRN Reason: Pain, moderate (4-7) Last Admin: 06/07/16 13:33 Dose: 25 mg - Labs Labs: 06/12/16 07:01 06/12/16 07:01 PT 12.6 SECONDS (9.7-12.2) H 06/12/16 07:01 INR 1.1 06/12/16 07:01 APTT 30 SECONDS (21-34) 06/12/16 07:01 - Constitutional Appears: Non-toxic, No Acute Distress - Head Exam Head Exam: ATRAUMATIC, NORMAL INSPECTION - Eye Exam Eye Exam: EOMI, Normal appearance, PERRL - ENT Exam ENT Exam: Mucous Membranes Moist - Neck Exam Neck Exam: Full ROM - Respiratory Exam Respiratory Exam: Clear to Ausculation Bilateral, NORMAL BREATHING PATTERN. absent: Accessory Muscle Use, Chest Wall Tenderness, Respiratory Distress - Cardiovascular Exam Cardiovascular Exam: REGULAR RHYTHM. absent: +S1, +S2 - GI/Abdominal Exam GI & Abdominal Exam: Tenderness, Normal Bowel Sounds. absent: Distended, Firm, Guarding, Soft - Extremities Exam Extremities Exam: Full ROM, Normal Inspection. absent: Calf Tenderness, Pedal Edema - Back Exam Back Exam: NORMAL INSPECTION. absent: CVA tenderness (L), CVA tenderness (R), paraspinal tenderness Additional comments: scolosis - Neurological Exam Neurological Exam: Alert, Awake, CN II-XII Intact, Oriented x3 Neuro motor strength exam: Left Upper Extremity: 5, Right Upper Extremity: 5, Left Lower Extremity: 5, Right Lower Extremity: 5 - Psychiatric Exam Psychiatric exam: Normal Affect, Normal Mood - Skin Skin Exam: Dry, Intact, Normal Color, Warm Additional comments: NF skin changes Assessment and Plan - Assessment and Plan (Free Text) Assessment: Rectal Mass - Adenocarcinoma with mucinous component Patient to go to [place] today for more imaging then return to Dr. Maria Gillette - Patient with a rectal lesion, S/P rectal EUS. Will check results of EUS and await surgical follow-up. -MRI abdomen 06/09: Simple nonenhancing T1 hypointense lesion within the anterior left hepatic lobe appears consistent with a simple cyst. Vague T1 hypointensity/ subtle T2 hyperintensity within the anterior hepatic lobe without evidence of post contrast enhancement, indeterminate. Further evaluation with hepatic ultrasound recommended. see full report. -MRI pelvis 06/09: Heterogeneous enhancing mass lesion at the left lateral wall of the recto anal junction measures 2.5 centimeter extending to the adjacent perianal/perirectal fat consistent with the patient known history of anal rectal cancer. No evidence of lymphadenopathy in the pelvis. Mildly-to- moderately enlarged prostate. see full report. s/p port a cath placement Surgical plans per Dr Larson - Pt had a partial protectomy procedure on . Management/pain management as per primary surgical team. Ultram 25 mg PO Q6 prn pain Patient has low cardiac risk (0.4%) for non-cardiac procedure; also, despite asthma and severe scoliosis history, ABG is relatively re-assuring with close to normal PO2 and no hypercapnea. Pathology: Rectal adenocarcinoma Rad onc consulted. -EUS completed GI consult - Dr. Link -Biopsy shows adenocarcinoma with mucinous component - EGD - normal - S/p colonoscopy today with cecum biopsy CT Abd/Pel 06/01: 7.5mm low-attenuation lesion at the anterior aspect of the left liver lobe, not clearly seen in the previous exam. Urinary retention Patient is voiding comfortably Finesteride 5mg PO daily Flomax 0.4 mg PO daily Piña discontinued. Bladder scan was 93 cc Pt with hx of BPH states he used to be on meds to help but hasn't taken in two years Patient was complaining of burning sensation related to piña catheter; nursing staff was asked to change catheter; otherwise, patient placed on flomax and finasteride for urinary retention; can give voiding trial in a few days; Dr. Alfredo Panda consulted, help appreciated - f/u recs HTN Monitor Vasotec 5mg PO daily Monitor and adjust if needed. Asthma Duoneb RQ8 [facility] Advair 100/[address] Velazquez consulted - help appreciated ABG is relatively re-assuring with close to normal PO2 and no hypercapnea. Patient is a moderate risk for surgery due to severe levoscoliotic curve. Prophylaxis SCDs Regular diet Pepcid 20mg PO qd <Theo Hopkins - Last Filed: 06/12/16 17:23> Objective - Vital Signs/Intake and Output Vital Signs (last 24 hours): Temp Pulse Resp BP Pulse Ox 98 F 88 19 146/80 98 06/12/16 15:45 06/12/16 15:45 06/12/16 15:45 06/12/16 15:45 06/12/16 15:45 Intake and Output: 06/12/16 06/12/16 06:59 18:59 Intake Total 0 Balance 0 - Medications Medications: Current Medications Albuterol/Ipratropium (Duoneb 3 Mg/0.5 Mg (3 Ml) Ud) 3 ml INH RQ8 [facility] Last Admin: 06/12/16 16:22 Dose: 3 ml Docusate Sodium (Colace) 100 mg PO BID [facility] Last Admin: 06/12/16 09:41 Dose: Not Given Enalapril Maleate (Vasotec) 5 mg PO DAILY [facility] Last Admin: 06/12/16 09:42 Dose: Not Given Famotidine (Pepcid) 20 mg PO DAILY [facility] Last Admin: 06/12/16 09:42 Dose: Not Given Finasteride (Proscar) 5 mg PO DAILY [facility] Last Admin: 06/12/16 09:42 Dose: Not Given Lactulose (Enulose) 20 gm PO BID [facility] Last Admin: 06/12/16 09:42 Dose: Not Given Fluticasone/Salmeterol (Advair Diskus 100/50) 1 puff INH RQ12 [facility] Last Admin: 06/12/16 08:25 Dose: 1 puff Tamsulosin HCl (Flomax) 0.4 mg PO DAILY [facility] Last Admin: 06/12/16 09:42 Dose: Not Given Tramadol HCl (Ultram) 25 mg PO Q6 PRN PRN Reason: Pain, moderate (4-7) Last Admin: 06/07/16 13:33 Dose: 25 mg - Labs Labs: 06/12/16 07:01 06/12/16 07:01 PT 12.6 SECONDS (9.7-12.2) H 06/12/16 07:01 INR 1.1 06/12/16 07:01 APTT 30 SECONDS (21-34) 06/12/16 07:01 Attending/Attestation - Attestation I have personally seen and examined this patient.: Yes I have fully participated in the care of the patient.: Yes I have reviewed all pertinent clinical information, including history, physical exam and plan: Yes Notes (Text): 06/12/16 17:23 Patient seen and examined at bedside Postop management as per surgery and GI Continue current medical management Discharge planning as per primary surgical team.
[2016-06-12] MEDS: Albuterol-Ipratrop 3 mg / 0.5 (3 ml) UD INH SCH ×2 (08:25→16:22)
[2016-06-12] MEDS: Fluticasone-Salmeterol 100-50mcg Diskus INH SCH (08:25)
--- NOTE | 2016-06-12 08:54 | CP.PCM.PN ---
Subjective - Date & Time of Evaluation Date of Evaluation: 06/12/16 Time of Evaluation: 09:00 - Subjective Subjective: Mr Casper Orellana has a newly diagnosed rectal cancer. He had a MRI of the pelvis as well as EUS which confirm that he has a clinical T3N0 rectal cancer. He will require preoperative chemoradiation prior to surgery. We will be bringing him to radiation so that we can simulate and begin planning his radiation. We are also aware that he will be getting a port for chemotherapy. We will coordinate his chemoradiation w/ his medical oncologist Dr Perez. Objective - Vital Signs/Intake and Output Vital Signs (last 24 hours): Temp Pulse Resp BP Pulse Ox 98.4 F 82 18 130/78 99 06/11/16 23:48 06/12/16 00:00 06/11/16 23:48 06/11/16 23:48 06/11/16 23:48 - Medications Medications: Current Medications Albuterol/Ipratropium (Duoneb 3 Mg/0.5 Mg (3 Ml) Ud) 3 ml INH RQ8 [facility] Last Admin: 06/12/16 08:25 Dose: 3 ml Docusate Sodium (Colace) 100 mg PO BID [facility] Last Admin: 06/11/16 17:16 Dose: 100 mg Enalapril Maleate (Vasotec) 5 mg PO DAILY [facility] Last Admin: 06/11/16 09:54 Dose: 5 mg Famotidine (Pepcid) 20 mg PO DAILY [facility] Last Admin: 06/11/16 09:54 Dose: 20 mg Finasteride (Proscar) 5 mg PO DAILY [facility] Last Admin: 06/11/16 09:55 Dose: 5 mg Lactulose (Enulose) 20 gm PO BID [facility] Last Admin: 06/11/16 17:15 Dose: 20 gm Fluticasone/Salmeterol (Advair Diskus 100/50) 1 puff INH RQ12 [facility] Last Admin: 06/12/16 08:25 Dose: 1 puff Tamsulosin HCl (Flomax) 0.4 mg PO DAILY [facility] Last Admin: 06/11/16 09:55 Dose: 0.4 mg Tramadol HCl (Ultram) 25 mg PO Q6 PRN PRN Reason: Pain, moderate (4-7) Last Admin: 06/07/16 13:33 Dose: 25 mg - Labs Labs: 06/12/16 07:01 06/12/16 07:01 PT 12.6 SECONDS (9.7-12.2) H 06/12/16 07:01 INR 1.1 06/12/16 07:01 APTT 30 SECONDS (21-34) 06/12/16 07:01
[2016-06-13] MEDS: Albuterol-Ipratrop 3 mg / 0.5 (3 ml) UD INH SCH ×4 (00:35→23:59)
[2016-06-13] MEDS: Fluticasone-Salmeterol 100-50mcg Diskus INH SCH ×2 (07:48→20:14)
--- NOTE | 2016-06-13 07:48 | CP.PCM.PN ---
<Briseyda Murphy - Last Filed: 06/13/16 12:07> Subjective - Date & Time of Evaluation Date of Evaluation: 06/13/16 Time of Evaluation: 07:15 - Subjective Subjective: PGY [address] Hopkins: Patient seen and examined at bedside. No acute events as per nursing. Tolerating diet, ambulating with steady gait. Denies BM or gas. C/o mild RUQ abd pain. Denies fever, chills, chest pain, difficulty breathing, palpitations, N/V, or any additional complaints. Is able to void without complaints. Patient will be getting a port placed today then the plan is for him to be discharged by Dr. Larson for further care to be done outpatient. Scripts were written and placed in his chart. Pain management per surgery. Objective - Vital Signs/Intake and Output Vital Signs (last 24 hours): Temp Pulse Resp BP Pulse Ox 98.0 F 96 H 20 132/87 96 06/13/16 07:12 06/13/16 07:12 06/13/16 07:12 06/13/16 07:12 06/13/16 07:12 Intake and Output: 06/13/16 06/13/16 06:59 18:59 Intake Total 690 Balance 690 - Medications Medications: Current Medications Albuterol/Ipratropium (Duoneb 3 Mg/0.5 Mg (3 Ml) Ud) 3 ml INH RQ8 [facility] Last Admin: 06/13/16 00:35 Dose: Not Given Docusate Sodium (Colace) 100 mg PO BID [facility] Last Admin: 06/12/16 18:30 Dose: 100 mg Enalapril Maleate (Vasotec) 5 mg PO DAILY [facility] Last Admin: 06/12/16 09:42 Dose: Not Given Famotidine (Pepcid) 20 mg PO DAILY [facility] Last Admin: 06/12/16 09:42 Dose: Not Given Finasteride (Proscar) 5 mg PO DAILY [facility] Last Admin: 06/12/16 09:42 Dose: Not Given Lactulose (Enulose) 20 gm PO BID [facility] Last Admin: 06/12/16 18:30 Dose: 20 gm Fluticasone/Salmeterol (Advair Diskus 100/50) 1 puff INH RQ12 [facility] Last Admin: 06/12/16 08:25 Dose: 1 puff Tamsulosin HCl (Flomax) 0.4 mg PO DAILY [facility] Last Admin: 06/12/16 09:42 Dose: Not Given Tramadol HCl (Ultram) 25 mg PO Q6 PRN PRN Reason: Pain, moderate (4-7) Last Admin: 06/07/16 13:33 Dose: 25 mg - Labs Labs: 06/12/16 07:01 06/12/16 07:01 PT 12.6 SECONDS (9.7-12.2) H 06/12/16 07:01 INR 1.1 06/12/16 07:01 APTT 30 SECONDS (21-34) 06/12/16 07:01 - Constitutional Appears: Non-toxic, No Acute Distress - Head Exam Head Exam: ATRAUMATIC, NORMAL INSPECTION - Eye Exam Eye Exam: EOMI, Normal appearance, PERRL Pupil Exam: NORMAL ACCOMODATION - ENT Exam ENT Exam: Mucous Membranes Moist - Respiratory Exam Respiratory Exam: Clear to Ausculation Bilateral, NORMAL BREATHING PATTERN. absent: Respiratory Distress - Cardiovascular Exam Cardiovascular Exam: REGULAR RHYTHM, +S1, +S2 - GI/Abdominal Exam GI & Abdominal Exam: Soft, Tenderness, Normal Bowel Sounds. absent: Distended, Firm, Guarding Additional comments: generalized, mild - Extremities Exam Extremities Exam: Normal Inspection. absent: Calf Tenderness, Pedal Edema - Back Exam Back Exam: NORMAL INSPECTION. 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 GI, Dr. Sifuentes - Patient with a rectal lesion, S/P rectal EUS. Will check results of EUS and await surgical follow-up. -MRI abdomen 06/09: Simple nonenhancing T1 hypointense lesion within the anterior left hepatic lobe appears consistent with a simple cyst. Vague T1 hypointensity/ subtle T2 hyperintensity within the anterior hepatic lobe without evidence of post contrast enhancement, indeterminate. Further evaluation with hepatic ultrasound recommended. see full report. -MRI pelvis 06/09: Heterogeneous enhancing mass lesion at the left lateral wall of the recto anal junction measures 2.5 centimeter extending to the adjacent perianal/perirectal fat consistent with the patient known history of anal rectal cancer. No evidence of lymphadenopathy in the pelvis. Mildly-to- moderately enlarged prostate. see full report. Surgical plans per Dr Larson - Pt had a partial protectomy procedure on . Management/pain management as per primary surgical team. Ultram 25 mg PO Q6 prn pain Patient has low cardiac risk (0.4%) for non-cardiac procedure; also, despite asthma and severe scoliosis history, ABG is relatively re-assuring with close to normal PO2 and no hypercapnea. Pathology: Rectal adenocarcinoma Rad onc consulted. -EUS completed GI consult - Dr. Link -Biopsy shows adenocarcinoma with mucinous component - EGD - normal - S/p colonoscopy today with cecum biopsy CT Abd/Pel 06/01: 7.5mm low-attenuation lesion at the anterior aspect of the left liver lobe, not clearly seen in the previous exam. Urinary retention Patient is voiding comfortably Finesteride 5mg PO daily Flomax 0.4 mg PO daily Piña discontinued. Bladder scan was 93 cc Pt with hx of BPH states he used to be on meds to help but hasn't taken in two years Patient was complaining of burning sensation related to piña catheter; nursing staff was asked to change catheter; otherwise, patient placed on flomax and finasteride for urinary retention; can give voiding trial in a few days; Dr. Alfredo Panda consulted, help appreciated - f/u recs HTN Monitor Vasotec 5mg PO daily Monitor and adjust if needed. Asthma Duoneb RQ8 [facility] Advair 100/[address] Velazquez consulted - help appreciated ABG is relatively re-assuring with close to normal PO2 and no hypercapnea. Patient is a moderate risk for surgery due to severe levoscoliotic curve. Prophylaxis SCDs Regular diet Pepcid 20mg PO qd Patient is to continue the medications we have added during his hospital stay. Pain management per surgical team. These medications include: Vasotec 5mg PO daily Advair 100/50 Finesteride 5mg PO daily Flomax 0.4 mg PO daily Scripts were placed in the chart. Pain management and discharge per Dr. Larson. Medicine team will be signing off. Thank you for the consult. <Theo Hopkins - Last Filed: 06/13/16 18:30> Objective - Vital Signs/Intake and Output Vital Signs (last 24 hours): Temp Pulse Resp BP Pulse Ox 97.8 F 92 H 20 150/84 96 06/13/16 15:43 06/13/16 15:43 06/13/16 15:43 06/13/16 15:43 06/13/16 15:43 Intake and Output: 06/13/16 06/13/16 06:59 18:59 Intake Total 690 550 Balance 690 550 - Medications Medications: Current Medications Albuterol/Ipratropium (Duoneb 3 Mg/0.5 Mg (3 Ml) Ud) 3 ml INH RQ8 [facility] Last Admin: 06/13/16 16:09 Dose: 3 ml Docusate Sodium (Colace) 100 mg PO BID [facility] Last Admin: 06/13/16 17:12 Dose: Not Given Enalapril Maleate (Vasotec) 5 mg PO DAILY [facility] Last Admin: 06/13/16 13:13 Dose: 5 mg Famotidine (Pepcid) 20 mg PO DAILY [facility] Last Admin: 06/13/16 13:04 Dose: 20 mg Finasteride (Proscar) 5 mg PO DAILY [facility] Last Admin: 06/13/16 13:04 Dose: 5 mg Lactulose (Enulose) 20 gm PO BID [facility] Last Admin: 06/13/16 17:12 Dose: Not Given Fluticasone/Salmeterol (Advair Diskus 100/50) 1 puff INH RQ12 [facility] Last Admin: 06/13/16 07:48 Dose: 1 puff Tamsulosin HCl (Flomax) 0.4 mg PO DAILY [facility] Last Admin: 06/13/16 13:04 Dose: 0.4 mg Tramadol HCl (Ultram) 25 mg PO Q6 PRN PRN Reason: Pain, moderate (4-7) Last Admin: 06/07/16 13:33 Dose: 25 mg - Labs Labs: 06/12/16 07:01 06/12/16 07:01 PT 12.6 SECONDS (9.7-12.2) H 06/12/16 07:01 INR 1.1 06/12/16 07:01 APTT 30 SECONDS (21-34) 06/12/16 07:01 Attending/Attestation - Attestation I have personally seen and examined this patient.: Yes I have fully participated in the care of the patient.: Yes I have reviewed all pertinent clinical information, including history, physical exam and plan: Yes Notes (Text): 06/13/16 18:29 Patient was seen and examined at bedside with the resident Patient complains of abdominal pain However the abdominal pain is now chronic. Patient is for Port-A-Cath placement today As per the PMD patient is to be discharged today Patient is medically cleared for discharge. Prescriptions left in the chart. Patient to follow-up with the oncology and radiation oncology as outpatient.
--- NOTE | 2016-06-13 14:51 | PN ---
DATE: 06/13/2016 The patient with rectal mucinous adenocarcinoma. Underwent MRI of the abdomen and pelvis which showe d a rectoanal junction mass 2.5 cm extending to the perianal and perirectal fat consistent with recta l cancer mucinous adenocarcinoma. The patient has undergone EUS with Dr. Sifuentes. Will await the results of the EUS and await surgical pathology results of the same. OBJECTIVE: The patient denies any complaints at this time. Is lying comfortably in bed. He will be getting his Port-A-Cath placed today and will be discharged for outpatient followup. VITAL SIGNS: Temperature 98, blood pressure is 132/87, pulse is 96, respirations are 20. HEENT: PERRLA. No scleral icterus is seen. NECK: Supple. CHEST: Bilateral air entry is decreased. CARDIAC: S1, S2 regular rate and rhythm. ABDOMEN: Soft, nontender. EXTREMITIES: No edema. LABORATORY DATA: Shows a white count of 8.9, hemoglobin 12.9, platelets of 412. ASSESSMENT AND PLAN: A 60-year-old male with rectal cancer, is set up for concurrent radiation and c hemo neoadjuvant as outpatient. Radiation with Dr. Child at [facility] and neoadjuvant FOLFOX will be in my office. The patient will be discharged to follow up as outpatient. Will follow up EUS results as well. Thank you for the consult. Will follow the patient with you. Ester Perez MD cc: [id number] TT: 06/13/2016 14:50:55 Confirmation # [id number] Dictation # [id number] madina
[2016-06-14] MEDS: Albuterol-Ipratrop 3 mg / 0.5 (3 ml) UD INH SCH ×3 (07:44→23:39)
[2016-06-14] MEDS: Fluticasone-Salmeterol 100-50mcg Diskus INH SCH ×2 (07:44→19:33)
[2016-06-14] MEDS ORDERED: Lidocaine 1% Inj (20ml) ONE (09:48)
[2016-06-14] MEDS ORDERED: ceFAZolin IV 1 gm in Dextrose 50 ML IVPB ONE (09:49)
[2016-06-14] MEDS ORDERED: HYDROmorphone 0.5 mg/0.5 ml ISec IVP PRN (09:51)
[2016-06-14] MEDS ORDERED: Midazolam 2 MG/2 ML VIAL ONE (09:55)
[2016-06-14] MEDS ORDERED: Propofol 10 mg/ml Inj (20 ML) ONE (09:55)
[2016-06-14] MEDS ORDERED: HEPARIN-NS 5,000 UNITS/500 ML 500 ML IV ONE (10:00)
--- NOTE | 2016-06-14 11:30 | PCM.SURG1 ---
Surgeon's Initial Post Op Note - Surgeon's Notes Surgeon: Hernan Siebel Solution Architect: geological technical officer Type of Anesthesia: General IV, Local Pre-Operative Diagnosis: Ca Operative Findings: Patent RIJV Post-Operative Diagnosis: Ca Operation Performed: Right medication port placed. Specimen/Specimens Removed: None Estimated Blood Loss: EBL {In ML}: 5 Date of Surgery/Procedure: 06/14/16 Time of Surgery/Procedure: 10:30
--- NOTE | 2016-06-14 12:32 | RAD ---
Fluoroscopy 06/14/2016. History: Fluoroscopy guided CVA device placement. Single frontal view of the upper kendall thorax (presumably the right however side of which is uncertain due to the lack of right/left markers) provided. Study demonstrates right IJ is MediPort with tip in the SVC. . No definitive radiographic evidence of pneumothorax however recommend follow-up chest radiograph Fluoroscopy time = 269.1 second. Radiation dose = 18.6 mGy. Impression: Fluoroscopic guided CVA placement. Please refer to operative report for details. No definitive radiographic evidence of pneumothorax however follow-up chest radiograph recommended
[2016-06-14] MEDS: Tramadol 25 mg PO PRN ×2 (12:41→20:08)
--- NOTE | 2016-06-14 14:17 | RAD ---
PROCEDURE: CHEST RADIOGRAPH, 1 VIEW HISTORY: right medication port placement. COMPARISON: 06/08/2016 FINDINGS: The right MediPort terminates at the cavoatrial junction. LUNGS: The lungs are clear. PLEURA: No pneumothorax or pleural fluid seen. CARDIOVASCULAR: Normal. OSSEOUS STRUCTURES: There is severe levoscoliosis in the thoracolumbar spine. VISUALIZED UPPER ABDOMEN: Normal. OTHER FINDINGS: None. IMPRESSION: The right MediPort terminates at the cavoatrial junction. No acute findings.
[2016-06-15] MEDS: Albuterol-Ipratrop 3 mg / 0.5 (3 ml) UD INH SCH ×3 (07:26→23:22)
[2016-06-15] MEDS: Fluticasone-Salmeterol 100-50mcg Diskus INH SCH ×2 (07:26→20:13)
[2016-06-15] MEDS: Tramadol 25 mg PO PRN (17:51)
[2016-06-16] MEDS: Albuterol-Ipratrop 3 mg / 0.5 (3 ml) UD INH SCH ×2 (07:21→16:23)
[2016-06-16] MEDS: Fluticasone-Salmeterol 100-50mcg Diskus INH SCH (07:22)
[2016-06-16 09:07] VITALS: PULSE 92
[2016-06-16 15:24] VITALS: BP 164/91; RESP 20; TEMP 97.6; O2SAT 98
--- NOTE | 2016-06-16 16:57 | CP.PCM.PN ---
Subjective - Date & Time of Evaluation Date of Evaluation: 06/16/16 Time of Evaluation: 11:00 - Subjective Subjective: Alert, oriented, yi speeking, NAD. Objective - Vital Signs/Intake and Output Vital Signs (last 24 hours): Temp Pulse Resp BP Pulse Ox 97.6 F 92 H 20 164/91 H 98 06/16/16 15:21 06/16/16 15:21 06/16/16 15:21 06/16/16 15:21 06/16/16 15:21 - Medications Medications: Current Medications Albuterol/Ipratropium (Duoneb 3 Mg/0.5 Mg (3 Ml) Ud) 3 ml INH RQ8 [facility] Last Admin: 06/16/16 16:23 Dose: 3 ml Docusate Sodium (Colace) 100 mg PO BID [facility] Last Admin: 06/16/16 14:32 Dose: 100 mg Enalapril Maleate (Vasotec) 5 mg PO DAILY [facility] Last Admin: 06/16/16 14:32 Dose: 5 mg Famotidine (Pepcid) 20 mg PO DAILY [facility] Last Admin: 06/16/16 14:32 Dose: 20 mg Finasteride (Proscar) 5 mg PO DAILY [facility] Last Admin: 06/16/16 14:32 Dose: 5 mg Fluticasone/Salmeterol (Advair Diskus 100/50) 1 puff INH RQ12 [facility] Last Admin: 06/16/16 07:22 Dose: 1 puff Tamsulosin HCl (Flomax) 0.4 mg PO DAILY [facility] Last Admin: 06/16/16 14:32 Dose: 0.4 mg Tramadol HCl (Ultram) 25 mg PO Q6 PRN PRN Reason: Pain, moderate (4-7) Last Admin: 06/15/16 17:51 Dose: 25 mg - Labs Labs: 06/12/16 07:01 06/12/16 07:01 PT 12.6 SECONDS (9.7-12.2) H 06/12/16 07:01 INR 1.1 06/12/16 07:01 APTT 30 SECONDS (21-34) 06/12/16 07:01 Assessment and Plan - Assessment and Plan (Free Text) Assessment: Patient diagnosed with rectal cancer, was sent to [facility] today for evaluation for Radiation therapy, seen and examined. No acute pain or bleeding. Cleared by DR Larson for discharge home today and is advised to go to DR Perez 's office for further treatment. Also to f/u with Dr Larson in his office.
== END 2016-06-16 17:30 | disposition home or self-care (01) ==
LOC: C.ER 09:33 → C.9E 11:19 → EDUNIT# 11:19 → MERGE 11:19 → C.3T 12:10 → C.5T 06-05 11:18
PROVIDERS: ADMIT Surgery; ATTEND Surgery
PROC: 0DJ08ZZ Inspection of Upper Intestinal Tract, Via Natural or Artificial Opening Endoscopic (ICD-10-PCS; 2016-06-05)
PROC: 0DBN8ZX Excision of Sigmoid Colon, Via Natural or Artificial Opening Endoscopic, Diagnostic (ICD-10-PCS; 2016-06-07)
PROC: 0DBK8ZX Excision of Ascending Colon, Via Natural or Artificial Opening Endoscopic, Diagnostic (ICD-10-PCS; 2016-06-07)
PROC: 05JYXZZ Inspection of Upper Vein, External Approach (ICD-10-PCS; principal; 2016-06-08)
PROC: 0JH60XZ Insertion of Tunneled Vascular Access Device into Chest Subcutaneous Tissue and Fascia, Open Approach (ICD-10-PCS; 2016-06-14)
DX: C20 Malignant neoplasm of rectum (principal); M41.84 Other forms of scoliosis, thoracic region; I10 Essential (primary) hypertension; K64.5 Perianal venous thrombosis; J44.9 Chronic obstructive pulmonary disease, unspecified; J45.909 Unspecified asthma, uncomplicated; Z87.891 Personal history of nicotine dependence; E78.5 Hyperlipidemia, unspecified; R33.8 Other retention of urine; E87.6 Hypokalemia; K62.2 Anal prolapse; Q85.00 Neurofibromatosis, unspecified

== ENCOUNTER 2016-06-28 09:45 | Emergency (ER) | payer MEDICAID ==
[2016-06-28 09:45] VITALS: BMI 20.4
[2016-06-28] MEDS ORDERED: Sodium Chloride 0.9% 1,000 ML IV ONE (10:31)
--- NOTE | 2016-06-28 10:37 | C.PDOC ---
History Of Present Illness 60 yr old male presents to the ER for abdominal pain for the past few days. Patient reports via verification specialist, for the past few days he has also been having trouble moving his bowels and urination. Patient reports he was recently diagnosed with a cancerous rectal mass, had a biopsy at the end of May. Patient denies fever, chest pain, SOB, nausea, vomiting, dysuria, hematuria, weakness or numbness. Time Seen by Provider: 06/28/16 10:04 Chief Complaint (Nursing): Abdominal Pain History Per: Patient History/Exam Limitations: no limitations Onset/Duration Of Symptoms: Days (Few) Current Symptoms Are (Timing): Still Present Severity: Mild Location Of Pain/Discomfort: Suprapubic Exacerbating Factors: None Alleviating Factors: None Past Medical History Reviewed: Historical Data, Nursing Documentation, Vital Signs Vital Signs: Last Vital Signs Temp 97.6 F 06/28/16 15:55 Pulse 100 H 06/28/16 15:55 Resp 16 06/28/16 15:55 BP 157/88 H 06/28/16 15:55 Pulse Ox 99 06/28/16 15:55 - Medical History PMH: Asthma, HTN Other PMH: rectal cancer Other Surgeries: rectal biopsy - [facility] Procedures EXCISION OF ASCENDING COLON, ENDO, DIAGN (05/28/16) EXCISION OF SIGMOID COLON, ENDO, DIAGN (05/28/16) INSERTION OF VAD INTO CHEST SUBCU/FASCIA, OPEN APPROACH (05/28/16) INSPECTION OF UPPER INTESTINAL TRACT, ENDO (05/28/16) INSPECTION OF UPPER VEIN, EXTERNAL APPROACH (05/28/16) Family History: States: No Known Family Hx - Social History Hx Tobacco Use: No Hx Alcohol Use: No Hx Substance Use: No - Immunization History Hx Tetanus Toxoid Vaccination: No Hx Influenza Vaccination: No Hx Pneumococcal Vaccination: No Review Of Systems Except As Marked, All Systems Reviewed And Found Negative. Constitutional: Negative for: Fever Cardiovascular: Negative for: Chest Pain Respiratory: Negative for: Shortness of Breath Gastrointestinal: Positive for: Abdominal Pain, Constipation, Other (Trouble urinating). Negative for: Nausea, Vomiting Genitourinary: Negative for: Dysuria, Hematuria Neurological: Negative for: Weakness, Numbness Physical Exam - Physical Exam Appears: Well, Non-toxic, No Acute Distress Skin: Normal Color, Warm, Dry, No Rash Head: Atraumatic, Normacephalic Eye(s): bilateral: Normal Inspection, PERRL, EOMI Oral Mucosa: Moist Neck: Normal, Normal ROM, No Paracervical Tenderness, Supple Chest: Symmetrical, No Tenderness Cardiovascular: Rhythm Regular, No Murmur Respiratory: Normal Breath Sounds, No Rales, No Rhonchi, No Wheezing Gastrointestinal/Abdominal: Soft, Tenderness (Mild lower abdominal tenderness), No Guarding, No Rebound Extremity: Normal ROM, No Swelling Neurological/Psych: Oriented x3, Normal Speech, Normal Motor Gait: Steady ED Course And Treatment - Laboratory Results Result Diagrams: 06/28/16 10:46 06/28/16 10:46 Lab Interpretation: Normal O2 Sat by Pulse Oximetry: 97 Pulse Ox Interpretation: Normal - Other Rad X-Ray - Obstructive Series X-Ray: Viewed By Me, Read By Radiologist Interpretation: PROCEDURE: Radiographs of the chest and abdomen (obstructive series). HISTORY: Abd Pain. COMPARISON: Portable chest radiograph 2016. TECHNIQUE: AP radiograph of the chest, with upright and supine radiographs of the abdomen. FINDINGS: CHEST: Lungs: Clear. Cardiovascular: Grossly normal. Evaluation limited due to severe thoracic levo scoliotic deformity. Right central venous infusion port, unchanged. Pleura: No pleural fluid. No pneumothorax. Other findings: None. ABDOMEN AND PELVIS: Bowel: Unremarkable bowel gas pattern. No evidence of mechanical obstruction. Free air : None. Bones: Unremarkable. Other findings: None. IMPRESSION: Severe thoracic levoscoliosis. No infiltrate. No evidence of bowel obstruction. Progress Note: Patient treated with IVF NSS. Bladder US 200 ml. Patient refused catherization. On re-evaluation abdomen soft non-tender, treated with macrobid 100 mg PO. Treated with macrobid 100 mg PO. On re-evaluation abdomen soft no distention, ambulating with steady gait Reassessment Condition: Improved Medical Decision Making Medical Decision Making: PLAN: * X-Ray - Obstructive Series * CBC * Urinalysis * Sodium Chloride IV Disposition Counseled Patient/Family Regarding: Studies Performed, Diagnosis, Need For Followup, Rx Given - Disposition Referrals: Tj Ramirez MD [Staff Provider] - [facility] [Outside] [facility] [Outside] Disposition: HOME/ ROUTINE Disposition Time: 15:15 Condition: STABLE Prescriptions: Nitrofurantoin Macrocrystals [Macrobid] 1 cap PO BID #14 cap Phenazopyridine HCl [Pyridium] 200 mg PO TID #6 tablet Instructions: Dysuria (ED) Print Language: TAMAZIGHT - POA Present On Arrival: None - Clinical Impression Clinical Impression: Abdominal pain, Constipation, Dysuria - PA / LEAD ESTHETICIAN / Resident Statement MD/DO has reviewed & agrees with the documentation as recorded. - Scribe Statement The provider has reviewed the documentation as recorded by the Rafaelaibkin Sanz All medical record entries made by the Farhad were at my direction and personally dictated by me. I have reviewed the chart and agree that the record accurately reflects my personal performance of the history, physical exam, medical decision making, and the department course for this patient. I have also personally directed, reviewed, and agree with the discharge instructions and disposition.
[2016-06-28 10:49] LABS: BASO % 0.1 % (0.0-2.0); HEMATOCRIT 40.8 % (35.0-51.0); LYMPH # 1.1 K/uL (1.0-4.3); LYMPH % 12.7 % (20.0-40.0); MEAN CELL VOLUME 90.4 fL (80.0-94.0); MEAN CORPUSCULAR HGB CONC 33.2 g/dL (33.0-37.0); MEAN PLATELET VOLUME 6.5 fL (7.2-11.7); MONO % 12.3 % (0.0-10.0); RED CELL DISTRIBUTION WIDTH 13.4 % (11.5-14.5); WHITE BLOOD COUNT 8.4 K/uL (4.8-10.8)
[2016-06-28 10:53] LABS: RBC URINE 2 /hpf (0-3); URINE BACTERIA RARE (<OCC); URINE BILIRUBIN NEGATIVE (NEGATIVE); URINE BLOOD NEGATIVE (NEGATIVE); URINE COLOR Yellow (YELLOW); URINE GLUCOSE (UA) NORMAL (Normal); URINE KETONE NEGATIVE (NEGATIVE); URINE LEUKOCYTE ESTERASE TRACE Leu/uL (Negative); URINE PROTEIN NEGATIVE (NEGATIVE); URINE UROBILINOGEN NORMAL mg/dL (0.2-1.0); WBC URINE 8 /hpf (0-5)
[2016-06-28 10:56] LABS: CHLORIDE 99 mmol/L (98-107)
[2016-06-28 10:57] LABS: POTASSIUM 3.7 mmol/L (3.6-5.2); SODIUM 136 mmol/L (132-148)
[2016-06-28 10:59] LABS: ALB/GLOB RATIO 1.3 (1.0-2.1); ALKALINE PHOSPHATASE 58 U/L (38-126); ALT/SGPT 23 U/L (21-72); AST/SGOT 20 U/L (17-59); BILIRUBIN,TOTAL 0.8 mg/dL (0.2-1.3); BLOOD UREA NITROGEN 18 mg/dL (9-20); CARBON DIOXIDE 24 mmol/L (22-30); GFR AFRICAN-AMERICAN > 60; GLUCOSE,RANDOM 108 mg/dL (75-110); TOTAL PROTEIN 6.9 g/dL (6.3-8.3)
[2016-06-28 11:00] LABS: CALCIUM 8.7 mg/dl (8.6-10.4)
--- NOTE | 2016-06-28 12:22 | RAD ---
PROCEDURE: Radiographs of the chest and abdomen (obstructive series) HISTORY: Abd Pain COMPARISON: Portable chest radiograph 06/14/2016 TECHNIQUE: AP radiograph of the chest, with upright and supine radiographs of the abdomen. FINDINGS: CHEST: Lungs: Clear. Cardiovascular: Grossly normal. Evaluation limited due to severe thoracic levo scoliotic deformity. Right central venous infusion port, unchanged. Pleura: No pleural fluid. No pneumothorax. Other findings: None. ABDOMEN AND PELVIS: Bowel: Unremarkable bowel gas pattern. No evidence of mechanical obstruction. Free air: None. Bones: Unremarkable. Other findings: None. IMPRESSION: Severe thoracic levoscoliosis. No infiltrate. No evidence of bowel obstruction.
[2016-06-28 16:11] VITALS: BP 157/88; PULSE 100; RESP 16; TEMP 97.6
[2016-06-28 17:39] VITALS: O2SAT 97
== END 2016-06-28 15:55 | disposition home or self-care (01) ==
LOC: C.ER 09:45 → EDUNIT# 09:45 → MERGE 09:45 → C.ER 15:55
DX: K59.00 Constipation, unspecified (principal); R10.30 Lower abdominal pain, unspecified; R30.0 Dysuria
CPT/HCPCS: 74022; 80053; 81001; 83690; 85025; 87086; 96360; 99285; J7040

== ENCOUNTER 2016-07-08 19:30 | Emergency (ER) | payer MEDICAID ==
[2016-07-08 19:31] VITALS: BMI 20.4
[2016-07-08] MEDS ORDERED: Sodium Chloride 0.9% 1,000 ML IV ONE (20:10)
[2016-07-08] MEDS ORDERED: Sodium Chloride 0.9% 1,000 ML ONE (20:21)
[2016-07-08 20:26] LABS: BASO % 0.5 % (0.0-2.0); EOS # 0.1 K/uL (0.0-0.7); EOS % 0.7 % (0.0-4.0); HEMATOCRIT 42.6 % (35.0-51.0); LYMPH # 1.1 K/uL (1.0-4.3); MEAN CORPUSCULAR HEMOGLOBIN 30.1 pg (27.0-31.0); MEAN CORPUSCULAR HGB CONC 33.1 g/dL (33.0-37.0); MEAN PLATELET VOLUME 6.1 fL (7.2-11.7); MONO # 1.1 K/uL (0.0-0.8); MONO % 12.2 % (0.0-10.0); RED CELL DISTRIBUTION WIDTH 13.9 % (11.5-14.5); WHITE BLOOD COUNT 8.7 K/uL (4.8-10.8)
[2016-07-08 20:27] LABS: RBC URINE 8 /hpf (0-3); RENAL EPITHELIAL 1 /hpf (0-3); URINE BACTERIA FEW (<OCC); URINE BILIRUBIN NEGATIVE (NEGATIVE); URINE COLOR Yellow (YELLOW); URINE GLUCOSE (UA) NORMAL (Normal); URINE HYALINE CAST 0-2 /lpf (0-2); URINE KETONE NEGATIVE (NEGATIVE); URINE LEUKOCYTE ESTERASE 2+ Leu/uL (Negative); URINE PROTEIN NEGATIVE (NEGATIVE); URINE UROBILINOGEN NORMAL mg/dL (0.2-1.0); WBC URINE 156 /hpf (0-5)
[2016-07-08 20:35] LABS: CHLORIDE 96 mmol/L (98-107)
[2016-07-08 20:36] LABS: POTASSIUM 4.7 mmol/L (3.6-5.2); SODIUM 136 mmol/L (132-148)
[2016-07-08 20:38] LABS: GFR AFRICAN-AMERICAN > 60
[2016-07-08 20:39] LABS: ALB/GLOB RATIO 1.4 (1.0-2.1); ALKALINE PHOSPHATASE 64 U/L (38-126); ALT/SGPT 27 U/L (21-72); AST/SGOT 25 U/L (17-59); BILIRUBIN,TOTAL 0.3 mg/dL (0.2-1.3); BLOOD UREA NITROGEN 21 mg/dL (9-20); CALCIUM 8.8 mg/dl (8.6-10.4); CARBON DIOXIDE 30 mmol/L (22-30); GLUCOSE,RANDOM 109 mg/dL (75-110)
[2016-07-08 20:46] LABS: INR 1.1
[2016-07-08] MEDS ORDERED: Iodixanol 320 MG/ML 100 ML BOTTLE IV ONE (20:48)
[2016-07-08 20:49] LABS: URINE BLOOD TRACE (NEGATIVE)
[2016-07-08 22:11] VITALS: BP 130/78; PULSE 87; RESP 18; TEMP 98.3; O2SAT 98
--- NOTE | 2016-07-08 22:13 | C.PDOC ---
History Of Present Illness The patient, a 60 y/o male, presents to the ED for evaluation of urinary frequency and pelvic pain. Patient states he was recently diagnosed with a Urinary Tract Infection and was prescribed Macrobid (patient's compliance is unclear). Patient also has diagnosis of rectal mass with biopsy performed in May, the result of which is unavailable. Patient denies fever, chills, nausea , vomiting, back pain. Time Seen by Provider: 07/08/16 19:51 Chief Complaint (Nursing): Male Genitourinary History Per: Patient History/Exam Limitations: no limitations Onset/Duration Of Symptoms: Days Current Symptoms Are (Timing): Still Present Quality Of Discomfort: "Pain" Associated Symptoms: Urinary Symptoms (urinary frequency ). denies: Fever, Chills, Nausea, Vomiting, Back Pain Additional History Per: Patient Past Medical History Reviewed: Historical Data, Nursing Documentation, Vital Signs Vital Signs: Last Vital Signs Temp 98.3 F 07/08/16 22:11 Pulse 87 07/08/16 22:11 Resp 18 07/08/16 22:11 BP 130/78 07/08/16 22:11 Pulse Ox 98 07/08/16 22:42 - Medical History PMH: Asthma, HTN Surgical History: No Surg Hx - [facility] Procedures EXCISION OF ASCENDING COLON, ENDO, DIAGN (05/28/16) EXCISION OF SIGMOID COLON, ENDO, DIAGN (05/28/16) INSERTION OF VAD INTO CHEST SUBCU/FASCIA, OPEN APPROACH (05/28/16) INSPECTION OF UPPER INTESTINAL TRACT, ENDO (05/28/16) INSPECTION OF UPPER VEIN, EXTERNAL APPROACH (05/28/16) Family History: States: Unknown Family Hx - Social History Hx Tobacco Use: No Hx Alcohol Use: No Hx Substance Use: No - Immunization History Hx Tetanus Toxoid Vaccination: No Hx Influenza Vaccination: No Hx Pneumococcal Vaccination: No Review Of Systems Except As Marked, All Systems Reviewed And Found Negative. Constitutional: Negative for: Fever, Chills Gastrointestinal: Positive for: Other (+pelvic pain ). Negative for: Nausea, Vomiting Genitourinary: Positive for: Frequency (urinary ) Musculoskeletal: Negative for: Back Pain Physical Exam - Physical Exam Appears: Non-toxic, No Acute Distress Skin: Normal Color, Warm, Dry Head: Atraumatic, Normacephalic Eye(s): bilateral: Normal Inspection Oral Mucosa: Moist Chest: Symmetrical, No Deformity, No Tenderness Cardiovascular: Rhythm Regular, No Murmur Respiratory: Normal Breath Sounds, No Rales, No Rhonchi, No Wheezing Gastrointestinal/Abdominal: Tenderness (suprapubic ), No Guarding, No Rebound Back: No Vertebral Tenderness, No Paraspinal Tenderness, Other (+severe scoliosis ) Extremity: Normal ROM, Capillary Refill (less than 2 seconds ) Neurological/Psych: Oriented x3, Normal Speech, Normal Cognition Gait: Steady ED Course And Treatment - Laboratory Results Result Diagrams: 07/08/16 20:21 07/08/16 20:21 Lab Interpretation: Abnormal (UA 156 WBC's) O2 Sat by Pulse Oximetry: 98 (on RA) Pulse Ox Interpretation: Normal - CT Scan/US CT A/P Other Rad Studies (CT/US): Interpreted By Me, Read By Radiologist, Radiology Report Reviewed CT/US Interpretation: IMPRESSION: Marked thoracolumbar congenital scoliosis is present. No evidence of bowel obstruction obstructive. uropathy, the appendix is not seen. Mild nonspecific thickening of the urinary bladder which measures. up to 5 mm. Mild atherosclerotic disease. Rule out constipation. Simple cyst left hepatic lobe. Progress Note: labs and CT Head ordered and reviewed. Patient received Macrobid PO, Pyridium PO, Toradol IV, and IV Fluids. Bladder scan shows 30cc of urine. Reevaluation Time: 22:22 Reassessment Condition: Improved Medical Decision Making Medical Decision Making: recurrent UTI, with ? 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 Disposition Doctor Will See Patient In The: Hospital Counseled Patient/Family Regarding: Studies Performed, Diagnosis - Disposition Referrals: Tj Ramirez MD [Staff Provider] - Sam Srinivasan [Medical Doctor] - Disposition: HOSPITALIZED Disposition Time: 22:23 Condition: GOOD Additional Instructions: joseph el antibiotico "macrobid 100 mg" dos veces al breann por 7 beltran pyridium 200 mg cada 6-8 horas para el dolor de la vejiga. Sigue con el Urologo- Dr. Ramirez Sigue con [facility] Dr. Srinivasan para repetir la prueba de la orina en 3 beltran para aseguarar que la infeccion esta curada. Prescriptions: Nitrofurantoin Macrocrystals [Macrobid] 1 cap PO BID #14 cap Phenazopyridine [Pyridium] 200 mg PO Q8H PRN #8 tab PRN Reason: dysuria Instructions: Urinary Tract Infection in Men (ED) Print Language: ARGENTINE - Clinical Impression Clinical Impression: Dysuria - Scribe Statement The provider has reviewed the documentation as recorded by the Scribe (Erinn Chamberlain) Provider Attestation: All medical record entries made by the Scribe were at my direction and personally dictated by me. I have reviewed the chart and agree that the record accurately reflects my personal performance of the history, physical exam, medical decision making, and the department course for this patient. I have also personally directed, reviewed, and agree with the discharge instructions and disposition.
--- NOTE | 2016-07-09 12:51 | CT ---
PROCEDURE: CT Abdomen and Pelvis . HISTORY: pelvic pain, rectal CA COMPARISON: CT A/P- 06/01/16 TECHNIQUE: Contiguous axial images of the abdomen and pelvis following intravenous injection of approximately 100 cc Visipaque 320 contrast material. Coronal and Sagittal reformats generated. Radiation dose: Total exam DLP = 218.61 MGy-cm. This CT exam was performed using one or more of the following dose reduction techniques: Automated exposure control, adjustment of the mA and/or kV according to patient size, and/or use of iterative reconstruction technique. FINDINGS: LOWER THORAX: Severe levoscoliosis of the lower thoracic spine and compensatory dextroscoliosis lumbar spine distorts anatomy. Prominent bullous changes in the anterior lower lung zones again noted LIVER: Small approximately 7.5 mm nonenhancing low-attenuation focus left lobe liver unchanged from prior study. No gross lesion or ductal dilatation. GALLBLADDER AND BILE DUCTS: Gallbladder appears incompletely distended/contracted. No obvious intraluminal gallbladder calculi PANCREAS: Unremarkable. No mass. No ductal dilatation. SPLEEN: Unremarkable. No splenomegaly. ADRENALS: No adrenal lesions. KIDNEYS AND URETERS: Unremarkable. No stone or hydronephrosis. BLADDER: Wall thickening of the urinary bladder rule out cystitis versus other intrinsic/invasive wall lesion REPRODUCTIVE: Scrotal calcification again noted. . Mildly enlarged prostate gland with prostatic calcifications. Correlation with PSA recommended. APPENDIX: Appendix not seen with certainty however no evidence of acute appendicitis. BOWEL: Stool is seen throughout the colon consistent with mild moderate the constipation. . There may also be scattered colonic diverticula along the sigmoid colon. Previously noted lesion in the left anal rectal junction possibly involving the rectal wall itself is is less well seen on this study compared the prior exam. Rule out residual rectal carcinoma PERITONEUM: Unremarkable. No fluid collection. No free air. LYMPH NODES: Unremarkable. No enlarged lymph nodes. VASCULATURE: Unremarkable. No aortic aneurysm. BONES: As above OTHER FINDINGS: None. IMPRESSION: Wall thickening of the urinary bladder rule out cystitis versus other intrinsic/invasive wall lesion Previously noted lesion in the left anal rectal junction the on possibly involving rectal wall itself is less well seen on this study compared the prior exam. Rule out residual rectal carcinoma. There may also be a scattered colonic diverticula along the sigmoid colon Findings consistent with mild moderate constipation Severe scoliotic deformities detailed above
== END 2016-07-08 22:34 | disposition short-term general hospital (02) ==
LOC: EDUNIT# 19:30 → C.ER 19:30 → MERGE 19:30 → C.ER 22:34
DX: R30.0 Dysuria (principal)
CPT/HCPCS: 74177; 80053; 81001; 83690; 85025; 85610; 85730; 87086; 87181; 96361; 96374; 99285; J1885; J7040; Q9967

== ENCOUNTER 2016-07-18 18:51 | Emergency (ER) | payer MEDICAID ==
[2016-07-18 18:52] VITALS: BMI 20.4
[2016-07-18] MEDS ORDERED: Sodium Chloride 0.9% 1,000 ML IV ONE (19:41)
[2016-07-18] MEDS ORDERED: Sodium Chloride 0.9% 1,000 ML ONE (19:53)
[2016-07-18 19:58] LABS: BASO # 0.1 K/uL (0.0-0.2); BASO % 0.8 % (0.0-2.0); EOS # 0.1 K/uL (0.0-0.7); HEMATOCRIT 42.6 % (35.0-51.0); LYMPH # 1.3 K/uL (1.0-4.3); LYMPH % 19.6 % (20.0-40.0); MEAN CELL VOLUME 90.9 fL (80.0-94.0); MEAN CORPUSCULAR HEMOGLOBIN 30.2 pg (27.0-31.0); MEAN CORPUSCULAR HGB CONC 33.2 g/dL (33.0-37.0); MEAN PLATELET VOLUME 6.2 fL (7.2-11.7); MONO # 0.8 K/uL (0.0-0.8); NRBC % 0.1 % (0.0-2.0); RED CELL DISTRIBUTION WIDTH 14.1 % (11.5-14.5); WHITE BLOOD COUNT 6.4 K/uL (4.8-10.8)
[2016-07-18 20:05] LABS: CHLORIDE 96 mmol/L (98-107); SODIUM 135 mmol/L (132-148)
[2016-07-18 20:06] LABS: POTASSIUM 3.8 mmol/L (3.6-5.2)
[2016-07-18 20:08] LABS: ALB/GLOB RATIO 1.4 (1.0-2.1); ALKALINE PHOSPHATASE 66 U/L (38-126); AST/SGOT 35 U/L (17-59); BILIRUBIN,TOTAL 0.5 mg/dL (0.2-1.3); BLOOD UREA NITROGEN 13 mg/dL (9-20); CARBON DIOXIDE 30 mmol/L (22-30); GFR AFRICAN-AMERICAN > 60; TOTAL PROTEIN 7.2 g/dL (6.3-8.3)
[2016-07-18 20:09] LABS: ALT/SGPT 39 U/L (21-72); GLUCOSE,RANDOM 129 mg/dL (75-110)
--- NOTE | 2016-07-18 21:07 | C.PDOC ---
Time Seen by Provider: 07/18/16 19:34 Chief Complaint (Nursing): Male Genitourinary History Per: Patient Onset/Duration Of Symptoms: Days (3) Current Symptoms Are (Timing): Still Present Severity: Moderate Location Of Pain/Discomfort: Suprapubic Quality Of Discomfort: Unable To Describe, "Pain" Associated Symptoms: Urinary Symptoms Exacerbating Factors: None Alleviating Factors: None Additional History Per: Prior Records Past Medical History Reviewed: Historical Data, Nursing Documentation, Vital Signs Vital Signs: Last Vital Signs Temp 98.0 F 07/18/16 21:54 Pulse 91 H 07/18/16 21:54 Resp 19 07/18/16 21:54 BP 151/84 H 07/18/16 21:54 Pulse Ox 98 07/18/16 23:17 - Medical History PMH: Asthma, HTN Surgical History: No Surg Hx - [facility] Procedures EXCISION OF ASCENDING COLON, ENDO, DIAGN (05/28/16) EXCISION OF SIGMOID COLON, ENDO, DIAGN (05/28/16) INSERTION OF VAD INTO CHEST SUBCU/FASCIA, OPEN APPROACH (05/28/16) INSPECTION OF UPPER INTESTINAL TRACT, ENDO (05/28/16) INSPECTION OF UPPER VEIN, EXTERNAL APPROACH (05/28/16) Family History: States: Unknown Family Hx - Social History Hx Tobacco Use: No Hx Alcohol Use: No Hx Substance Use: No - Immunization History Hx Tetanus Toxoid Vaccination: No Hx Influenza Vaccination: No Hx Pneumococcal Vaccination: No Review Of Systems Except As Marked, All Systems Reviewed And Found Negative. Constitutional: Negative for: Fever, Weakness Cardiovascular: Negative for: Chest Pain Respiratory: Negative for: Shortness of Breath Gastrointestinal: Positive for: Abdominal Pain. Negative for: Vomiting, Diarrhea Genitourinary: Positive for: Dysuria, Frequency. Negative for: Scrotal Pain Musculoskeletal: Negative for: Neck Pain Skin: Negative for: Rash Neurological: Negative for: Weakness, Numbness, Seizures, Altered Mental Status Physical Exam - Physical Exam Appears: No Acute Distress Skin: Normal Color, Warm, Dry Head: Atraumatic, Normacephalic Eye(s): bilateral: PERRL, EOMI Neck: Normal ROM, Supple Cardiovascular: Rhythm Regular Respiratory: Normal Breath Sounds, No Accessory Muscle Use Gastrointestinal/Abdominal: Soft, Tenderness (suprapubic), No Distention, No Guarding, No Rebound Back: No CVA Tenderness, Other (Severe scoliosis) Extremity: Normal ROM, No Deformity Neurological/Psych: Oriented x3, Normal Motor, Normal Sensation ED Course And Treatment - Laboratory Results Result Diagrams: 07/18/16 19:52 07/18/16 19:51 Lab Interpretation: No Acute Changes O2 Sat by Pulse Oximetry: 98 Pulse Ox Interpretation: Normal - CT Scan/US CT abd/pelv Other Rad Studies (CT/US): Read By Radiologist, Radiology Report Reviewed CT/US Interpretation: No acute process is seen in the abdomen and pelvis. Progress - Interventions Interventions:: Observation, Intravenous fluid - Medications Administered Oral: Other (Abx) Intravenous: NSAID - Data Reviewed Data Reviewed: Lab, Diagnostic imaging, Old records - Patient Status Patient status: Mostly improved - Continuity of Care Discussed patient case with:: Patient, ED Nurse - Patient Plan Patient Plan: Discharge, F/U with PCP Medical Decision Making Medical Decision Making: Pt has a recent positive urine culture that grew Enterococcus that is sensitive to Cipro. Disposition Counseled Patient/Family Regarding: Studies Performed, Diagnosis, Need For Followup, Rx Given - Disposition Referrals: Fede Arce Jr., MD [Staff Provider] - Sam Srinivasan [Medical Doctor] - Disposition: HOME/ ROUTINE Disposition Time: 23:13 Condition: IMPROVED Additional Instructions: Drink plenty of fluids. Follow up with your doctor within 1-2 days. Follow up with a Urologist for further evaluation and treatment. Return to the ER if you develop fever, vomiting, worsening of symptoms or if you have any other concerns. Prescriptions: Ciprofloxacin [Cipro] 1 tab PO BID #10 tab Instructions: Urinary Tract Infection in Men (ED) Print Language: ESTONIAN - Clinical Impression Clinical Impression: Urinary tract infection symptoms
[2016-07-18 21:09] LABS: RBC URINE 1 /hpf (0-3); URINE BILIRUBIN NEGATIVE (NEGATIVE); URINE BLOOD NEGATIVE (NEGATIVE); URINE COLOR Yellow (YELLOW); URINE GLUCOSE (UA) NORMAL (Normal); URINE KETONE NEGATIVE (NEGATIVE); URINE LEUKOCYTE ESTERASE NEG Leu/uL (Negative); URINE PROTEIN NEGATIVE (NEGATIVE); URINE UROBILINOGEN NORMAL mg/dL (0.2-1.0); WBC URINE < 1 /hpf (0-5)
[2016-07-18 23:14] VITALS: O2SAT 98
[2016-07-18 23:24] VITALS: BP 145/93; PULSE 94; RESP 16; TEMP 97.8
--- NOTE | 2016-07-19 10:52 | CT ---
PROCEDURE: CT Abdomen and Pelvis without Oral or IV contrast. HISTORY: Abdominal pain, urinary symptoms. COMPARISON: None. TECHNIQUE: Contiguous axial images of the abdomen and pelvis. No oral or IV contrast administered. Coronal and Sagittal reformats generated and reviewed. Radiation dose: Total exam DLP = 211.17 mGy-cm. This CT exam was performed using one or more of the following dose reduction techniques: Automated exposure control, adjustment of the mA and/or kV according to patient size, and/or use of iterative reconstruction technique. FINDINGS: There is limited evaluation of the solid organs without the administration of IV contrast. Examination markedly limited due to congenital scoliosis and motion artifact. LOWER THORAX: No visible consolidation, pleural effusion, or pneumothorax. Bullous changes within the anterior lung bases similar prior study, chronic. LIVER: Too small to characterize 7 mm left hepatic lobe hypodensity. GALLBLADDER AND BILE DUCTS: Unremarkable unenhanced appearance. PANCREAS: Unremarkable unenhanced appearance. SPLEEN: Unremarkable unenhanced appearance. ADRENALS: Unremarkable unenhanced appearance. KIDNEYS AND URETERS: No hydronephrosis or obstructing renal calculus. BLADDER: The urinary bladder appears unremarkable. REPRODUCTIVE: The prostate gland measures approximately 3.8 x 4.4 cm and contains calcifications. APPENDIX: The appendix is not identified. No secondary signs of acute appendicitis. BOWEL: The stomach is nondistended. Lack of oral contrast limits evaluation for bowel pathology. The bowel loops appear within normal limits of caliber without evidence of intestinal obstruction. Rectal wall thickening; possibly exaggerated by under distension, however correlate clinically exclude possibility of proctitis. PERITONEUM: No significant free fluid. No definite free air. LYMPH NODES: No bulky lymphadenopathy identified. VASCULATURE: Atherosclerotic calcifications. BONES: Severe congenital scoliosis. OTHER FINDINGS: None. IMPRESSION: Examination markedly limited due to motion artifact and congenital scoliosis. Rectal wall thickening may be exaggerated by under distension, however correlate clinically in order to exclude possibility of proctitis. Recommend clinical correlation and further evaluation as indicated. Prostate gland appears enlarged. Recommend correlation with PSA. Additional findings as above. Preliminary impression was provided by [facility]. Study has been marked for PA review.
== END 2016-07-18 23:29 | disposition home or self-care (01) ==
LOC: C.ER 18:51 → EDUNIT# 18:51 → MERGE 18:51 → C.ER 23:29
DX: N39.0 Urinary tract infection, site not specified (principal)
CPT/HCPCS: 74176; 80053; 81001; 83690; 85025; 87086; 96374; 96375; 99285; J1885; J7040

== ENCOUNTER 2016-07-21 20:35 | Emergency (ER) | payer MEDICAID ==
[2016-07-21 20:36] VITALS: BMI 20.4
--- NOTE | 2016-07-21 22:12 | C.PDOC ---
History Of Present Illness Patient presents to ED c/o suprapubic pain and inability to urinate since this morning. He states he "thinks he has prostate problem", denies having seen urologist. He denies fever, nausea/vomiting/diarrhea, dysuria/hematuria, flank pain. Patient was seen in this ED on 07/18 for similar complaints, CT scan showed enlarged prostate. Patient discharged home at the time with Ciprofloxacin for UTI. Time Seen by Provider: 07/21/16 20:58 Chief Complaint (Nursing): Male Genitourinary History Per: Patient History/Exam Limitations: no limitations Current Symptoms Are (Timing): Still Present Severity: Mild Quality Of Discomfort: "Pain" Associated Symptoms: denies: Fever, Chills, Nausea, Vomiting, Diarrhea Past Medical History Reviewed: Historical Data, Nursing Documentation, Vital Signs Vital Signs: Last Vital Signs Temp 98.2 F 07/21/16 23:29 Pulse 114 H 07/21/16 23:29 Resp 18 07/21/16 23:29 BP 142/90 07/21/16 23:29 Pulse Ox 98 07/21/16 23:29 - Medical History PMH: Asthma, HTN - [facility] Procedures EXCISION OF ASCENDING COLON, ENDO, DIAGN (05/28/16) EXCISION OF SIGMOID COLON, ENDO, DIAGN (05/28/16) INSERTION OF VAD INTO CHEST SUBCU/FASCIA, OPEN APPROACH (05/28/16) INSPECTION OF UPPER INTESTINAL TRACT, ENDO (05/28/16) INSPECTION OF UPPER VEIN, EXTERNAL APPROACH (05/28/16) Family History: States: No Known Family Hx - Social History Hx Tobacco Use: No Hx Alcohol Use: No Hx Substance Use: No - Immunization History Hx Tetanus Toxoid Vaccination: No Hx Influenza Vaccination: No Hx Pneumococcal Vaccination: No Review Of Systems Except As Marked, All Systems Reviewed And Found Negative. Constitutional: Negative for: Fever, Chills Cardiovascular: Negative for: Chest Pain, Palpitations Respiratory: Negative for: Cough, Shortness of Breath Gastrointestinal: Negative for: Nausea, Vomiting, Abdominal Pain, Diarrhea Genitourinary: Positive for: Other (urinary retention). Negative for: Dysuria Physical Exam - Physical Exam Appears: Well, Non-toxic, In Acute Distress (in mild pain) Eye(s): bilateral: Normal Inspection Oral Mucosa: Moist Cardiovascular: Rhythm Regular (mildly tachycardic) Respiratory: Normal Breath Sounds, No Rales, No Rhonchi, No Wheezing Gastrointestinal/Abdominal: Bowel Sounds, Soft, Tenderness (mild suprapubic TTP and distension), No Guarding, No Rebound Back: Normal Inspection, No CVA Tenderness Neurological/Psych: Oriented x3 ED Course And Treatment O2 Sat by Pulse Oximetry: 99 (RA) Pulse Ox Interpretation: Normal Progress Note: Bladder scan done and showed 110 ml of urine. Patient c/o discomfort, initially refusing piña catheter. Explained to patient that if he is unable to urinate, piña catheter is needed. Piña insertion attempted by nurse, unsuccessful. Coudet catheter brought to bedside. In the interim, patient voided and urine sent for UA, Ucx. Patient again refusing insertion of catheter. PO Flomax given. Reevaluation Time: 23:25 Reassessment Condition: Improved (Patient currently resting comfortably, in no pain/distress. He was able to urinate, and UA (-) for UTI/blood. Patient does not want piña catheter - explained to patient that he risks having to come back to ED if he has urinary retention again. Patient given Rx Flomax, and he was instructed to follow up with urology within 1 week without fail. He understands he should return to ED if his symptoms return/worsen.) Disposition Counseled Patient/Family Regarding: Studies Performed, Diagnosis, Need For Followup, Rx Given - Disposition Referrals: Fede Arce Jr., MD [Staff Provider] - [facility] [Outside] [facility] [Outside] Disposition: HOME/ ROUTINE Disposition Time: 23:25 Condition: STABLE Additional Instructions: USTED NECESITA SEGUIR CON EL URLOGO DENTRO DE 1 SEMANA USO FLOMAX DIARIO CONTINA MANUELITO ANTIBITICOS DEVUELVA A LA NEHA DE EMERGENCIA SI LOS SNTOMAS EMPEORARAN Prescriptions: Tamsulosin [Flomax] 0.4 mg PO DAILY #14 cap Instructions: Urinary Retention in Men (ED) Print Language: SALVADOREAN - POA Present On Arrival: None - Clinical Impression Clinical Impression: Urinary retention, Enlarged prostate
[2016-07-21 22:58] LABS: URINE BILIRUBIN NEGATIVE (NEGATIVE); URINE BLOOD NEGATIVE (NEGATIVE); URINE COLOR Colorless (YELLOW); URINE GLUCOSE (UA) NORMAL (Normal); URINE KETONE NEGATIVE (NEGATIVE); URINE LEUKOCYTE ESTERASE NEG Leu/uL (Negative); URINE PROTEIN NEGATIVE (NEGATIVE); URINE UROBILINOGEN NORMAL mg/dL (0.2-1.0); WBC URINE < 1 /hpf (0-5)
[2016-07-21 23:30] VITALS: BP 142/90; PULSE 114; RESP 18; TEMP 98.2
[2016-07-22 23:54] VITALS: O2SAT 99
== END 2016-07-21 23:30 | disposition home or self-care (01) ==
LOC: MERGE 20:35 → EDUNIT# 20:35 → C.ER 20:35
DX: N40.1 Benign prostatic hyperplasia with lower urinary tract symptoms (principal); R33.8 Other retention of urine